=== PATIENT | female | born 2000 | race African-American/Black ===

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

== ENCOUNTER → 2023-08-16 | Emergency (ER) | payer OTHER, SELFPAY ==
--- OUTSIDE RECORDS SUMMARY | 2023-08-16 03:27 | XMS REPORT | Continuity of Care Document ---
Author Name Unknown Address [address] [facility] [address] [place] [address] [facility] thconnect Address [address] [facility] [address] [place] [address] Care Team Providers Care Acquisition Professional Name Role Phone Gabi Reynoso Primary Care Physicia n NICOLE QUINTANILLA Attending Clinician Unavaila ble GABI PALACIO Attending Clinician Unavail able Gabi Reynoso Attending Clinician + Visit, [facility] Nurse Attending Clinician Lisa Trotter MD Attending Clinician [phone] LISA CATES Attending Clinician Unavailable LISA CATES Attending Clinician Unavailable CANDICE VASQUEZ Attending Clinician Unavailable Vira Callahan MD Attending Clinician [phone] Doctor Unassigned, [place] Attending Clinician U MARCELA Asher Attending Clinician Unavailable Rogelio Hess Attending Clinician + [phone] Marcela Cruz MD Attending Clinician [phone] Nicole Quintanilla CNM Attending Clinician [phone] 1, [facility] Attending Clinician Unavailab Amanda Lopez MD Attending Clinician [phone] MAHAMED DO Attending Clinician Unavailable MAHAMED DO Attending Clinician Unavailable ALEXSANDRA POLANCO Attending Clinician Unavailable Alexsandra Polanco MD Attending Clinician [phone] REMI ROSARIO Attending Clinician Unavailab hector Johnson ELECTRIC GOLF CART REPAIRERAkanksha Jesus Attending Clinician [phone] [facility], [facility] Attending Clinician Un available Rui Gould MD Attending Clinician [phone] RUI GOULD Attending Clinician Unavailable LUZ MARIA ANGEL Attending Clinician Unavailameena Angel ELECTRIC GOL[employer] C[employer] REPAIRER, Luz Maria Mckay Attending Clinician [phone] Christian Ruiz MD Attending Clinician [phone] Chester Cates DO Attending Clinician [phone] Lab, [facility] Attending Clinician Unavailab Shira Owusu Attending Clinician [phone] Ultrasound, [facility] Attending Clinician UnavailRichard Desai MD Attending Clinician [phone] MARCELA CRUZ Admitting Clinician Unavailable Lisa Cates MD Admitting Clinician [phone] LISA CATES Admitting Clinician Unavailable Marcela Cruz MD Admitting Clinician [phone] Payers Payer Name Policy Type Policy Number Effective Date Expirati on Date Source [place] [employer] [id number] 2022 00:00:00 MEDICAID [facility] [id number] 2020 00:00:00 MEDICAID PENDING PENDING 2020 00:00:00 Problems Condition Name Condition Details Condition Category Status Onset Date Resolution Date Last Treatment Date Treating Clinician Comments Source care and examinatio n of lactating mother care and examinatio n of lactating mother Disease Active 8-09 00:00: 00 [facility] 39 weeks gestation of 39 weeks gestation of Disease Active 0 7-19 00:00: 00 [facility] History of tubal ligation History of tubal ligation Disease Active 6-01 00:00: 00 [facility] Supervisio n of high-risk Supervisio n of high-risk Disease Active 2-21 00:00: 00 [facility] Multiparit y Multiparit y Disease Active 2-21 00:00: 00 [facility] History of section History of section Disease Active 2-21 00:00: 00 [facility] Desires (vaginal after ) trial Desires (vaginal after ) trial Disease Active 2-21 00:00: 00 [facility] examinatio n or test, positive result examinatio n or test, positive result Disease Active 2-15 00:00: 00 [facility] Over weight Over weight Disease Active 3-10 00:00: 00 [facility] Other general counseling and advice for contracept kd management Other general counseling and advice for contracept kd management Disease Active 1-06 00:00: 00 [facility] History of asthma History of asthma Disease Active 8 00:00: 00 Overview: Formattin g of this note might be different from the original. Reports as a child not on meds, reports resolved [facility] Allergies, Adverse Reactions, Alerts Allergy Name Allergy Type Status Severity Reaction(s) Onset Date Inactive Date Treating Clinician Comments Source NO KNOWN ALLERGIE S Drug Class Active [facility] Social History Social Habit Start Date Stop Date Quantity Comments Source ASSERTION 2022-05-15 00:00:00 [facility] History SDOH Alcohol Frequency [facility] History SDOH Alcohol Std Drinks [facility] History SDOH Alcohol Binge [facility] Gender identity [facility] Alcohol intake 2023-01-31 00:00:00 2023-01-31 00:00:00 Current drinker of alcohol (finding) [facility] Tobacco use and exposure 2023-01-29 00:00:00 2023-01-29 00:00:00 Smokeless tobacco non-user [facility] Exposure to SARS-CoV-2 (event) 2022-11-17 00:00:00 2022-11-27 15:16:00 Not sure [facility] Tobacco Comment 2022-08-28 00:00:00 2022-08-28 00:00:00 experimented with smoking at age 14 [facility] Alcohol Comment 2021-09-20 00:00:00 2021-09-20 00:00:00 socially [facility] History of Social function 2021-06-28 00:00:00 2021-06-28 00:00:00 [facility] Education 2020-06-02 00:00:00 2020-06-02 00:00:00 21 [facility] Sex Assigned At 2000 00:00:00 2000 00:00:00 [facility] Smoking Status Start Date Stop Date Source Never smoked tobacco [facility] Medications Ordered Medication Name Filled Medication Name Start Date Stop Date Current Medication? Ordering Clinician Indication Dosage Frequency Signature (SIG) Comments Components Source vitamin w/FA tablet 02-01 00:00: 00 Yes [id number] 1{tbl} Take 1 tablet by mouth in the morning. [facility] docusate 100 mg capsule 02-01 00:00: 00 Yes [id number] 200mg Take 2 capsules by mouth once daily as needed for Constipati on. [facility] ferrous sulfate 325 mg (65 mg iron) tablet 02-01 00:00: 00 Yes [id number] 325mg Take 1 tablet by mouth in the morning. [facility] ibuprofen 600 mg tablet 02-01 00:00: 00 Yes [id number] 600mg Take 1 tablet by mouth every 6 (six) hours as needed (Pain). Take with food or milk. [facility] HYDROcodone -acetaminop hen 5-325 mg tablet 02-01 00:00: 00 Yes [id number] 1{tbl} Take 1 tablet by mouth every 6 (six) hours as needed (Pain scale above 4) for up to 10 doses. Do not exceed 3 grams of acetaminop hen in 24 hours. Indication s: acute pain [facility] vitamin w/FA tablet 02-01 00:00: 00 Yes [id number] 1{tbl} Take 1 tablet by mouth in the morning. [facility] docusate 100 mg capsule 02-01 00:00: 00 Yes [id number] 200mg Take 2 capsules by mouth once daily as needed for Constipati on. [facility] ferrous sulfate 325 mg (65 mg iron) tablet 02-01 00:00: 00 Yes [id number] 325mg Take 1 tablet by mouth in the morning. [facility] ibuprofen 600 mg tablet 02-01 00:00: 00 Yes [id number] 600mg Take 1 tablet by mouth every 6 (six) hours as needed (Pain). Take with food or milk. [facility] HYDROcodone -acetaminop hen 5-325 mg tablet 02-01 00:00: 00 Yes [id number] 1{tbl} Take 1 tablet by mouth every 6 (six) hours as needed (Pain scale above 4) for up to 10 doses. Do not exceed 3 grams of acetaminop hen in 24 hours. Indication s: acute pain [facility] vitamin w/FA tablet 02-01 00:00: 00 Yes [id number] 1{tbl} Take 1 tablet by mouth in the morning. [facility] docusate 100 mg capsule 02-01 00:00: 00 Yes [id number] 200mg Take 2 capsules by mouth once daily as needed for Constipati on. [facility] ferrous sulfate 325 mg (65 mg iron) tablet 02-01 00:00: 00 Yes [id number] 325mg Take 1 tablet by mouth in the morning. [facility] ibuprofen 600 mg tablet 02-01 00:00: 00 Yes [id number] 600mg Take 1 tablet by mouth every 6 (six) hours as needed (Pain). Take with food or milk. [facility] HYDROcodone -acetaminop hen 5-325 mg tablet 02-01 00:00: 00 Yes [id number] 1{tbl} Take 1 tablet by mouth every 6 (six) hours as needed (Pain scale above 4) for up to 10 doses. Do not exceed 3 grams of acetaminop hen in 24 hours. Indication s: acute pain [facility] lactated ringers IV infusion 1,000 mL 01-30 09:30: 00 01-30 06:30 :00 No 1000mL at 125 mL/hr, 1,000 mL, IV Infusion, ONCE, 1 dose, On Fri01/30/23 at 0430, Routine [facility] rho(D) immune globulin (RHOGAM) syringe 300 mcg 01-30 09:23: 20 Yes 300ug 300 mcg, Intramuscu lar, ONCE, For 1 dose, Conditiona l, Routine [facility] rho(D) immune globulin (RHOGAM) syringe 300 mcg 01-30 09:23: 20 Yes 300ug 300 mcg, Intramuscu lar, ONCE, For 1 dose, Conditiona l, Routine [facility] HYDROcodone -acetaminop hen (NORCO 5) 5-325 mg tablet 2 tablet 01-30 09:23: 15 Yes 2{tbl} 2 tablet, Oral, Q6HPRN, Starting on Fri01/30/23 at 0423, Until Discontinu ed, Routine, Pain (scale 7-10), Alternate with Ibuprofen [facility] HYDROcodone -acetaminop hen (NORCO 5) 5-325 mg tablet 1 tablet 01-30 09:23: 15 Yes 1{tbl} 1 tablet, Oral, Q6HPRN, Starting on Fri01/30/23 at 0423, Until Discontinu ed, Routine, Pain (scale 4-6), Alternate with Ibuprofen [facility] ibuprofen (IBU) tablet 600 mg 01-30 09:23: 15 Yes 600mg 600 mg, Oral, Q6HPRN, Starting on Fri01/30/23 at 422, Until Discontinu ed, Routine, Pain (scale 1-3) [facility] diphenhydrA MINE (BENADRYL) injection 25 mg 01-30 09:23: 15 Yes 25mg 25 mg, Slow IV Push, Q6HPRN, Starting on Fri01/30/23 at 422, Until Discontinu ed, Routine, Itching [facility] diphenhydrA MINE (BENADRYL) tablet 25 mg 01-30 09:23: 15 Yes 25mg 25 mg, Oral, Q6HPRN, Starting on Fri01/30/23 at 422, Until Discontinu ed, Routine, Sleep, Itching [facility] ondansetron (ZOFRAN (PF)) injection 4 mg 01-30 09:23: 15 Yes 4mg 4 mg, Slow IV Push, Q8HPRN, Starting on Fri01/30/23 at 422, Until Discontinu ed, Routine, Nausea and Vomiting (N/V) [facility] bisacodyL (DULCOLAX) suppository 10 mg 01-30 09:23: 15 Yes 10mg 10 mg, Rectal, QDAILYPRN, Starting on Fri01/30/23 at 422, Until Discontinu ed, Routine, Constipati on [facility] simethicone (GAS RELIEF (SIMETHICON E)) chewable tablet 160 mg 01-30 09:23: 15 Yes 160mg 160 mg, Oral, PC+HSPRN, Starting on Fri01/30/23 at 422, Until Discontinu ed, Routine, Gas [facility] docusate (COLACE) capsule 200 mg 01-30 09:23: 15 Yes 200mg 200 mg, Oral, QDAILYPRN, Starting on Fri01/30/23 at 422, Until Discontinu ed, Routine, Constipati on [facility] magnesium hydroxide (MILK OF MAGNESIA) 400 mg/5 mL suspension 30 mL 01-30 09:23: 15 Yes 30mL 30 mL, Oral, QDAILYPRN, Starting on Fri01/30/23 at 422, Until Discontinu ed, Routine, Constipati on [facility] lactated ringers IV infusion 1,000 mL 01-30 09:23: 15 Yes 1000mL at 125 mL/hr, 1,000 mL, IV Infusion, PRN, 1 dose, Starting on Fri01/30/23 at 422, Until Discontinu ed, Routine [facility] HYDROcodone -acetaminop hen (NORCO 5) 5-325 mg tablet 2 tablet 01-30 09:23: 15 Yes 2{tbl} 2 tablet, Oral, Q6HPRN, Starting on Fri01/30/23 at 422, Until Discontinu ed, Routine, Pain (scale 7-10), Alternate with Ibuprofen [facility] HYDROcodone -acetaminop hen (NORCO 5) 5-325 mg tablet 1 tablet 01-30 09:23: 15 Yes 1{tbl} 1 tablet, Oral, Q6HPRN, Starting on Fri01/30/23 at 422, Until Discontinu ed, Routine, Pain (scale 4-6), Alternate with Ibuprofen [facility] ibuprofen (IBU) tablet 600 mg 01-30 09:23: 15 Yes 600mg 600 mg, Oral, Q6HPRN, Starting on Fri01/30/23 at 422, Until Discontinu ed, Routine, Pain (scale 1-3) [facility] diphenhydrA MINE (BENADRYL) injection 25 mg 01-30 09:23: 15 Yes 25mg 25 mg, Slow IV Push, Q6HPRN, Starting on Fri01/30/23 at 422, Until Discontinu ed, Routine, Itching [facility] diphenhydrA MINE (BENADRYL) tablet 25 mg 01-30 09:23: 15 Yes 25mg 25 mg, Oral, Q6HPRN, Starting on Fri01/30/23 at 422, Until Discontinu ed, Routine, Sleep, Itching [facility] ondansetron (ZOFRAN (PF)) injection 4 mg 01-30 09:23: 15 Yes 4mg 4 mg, Slow IV Push, Q8HPRN, Starting on Fri01/30/23 at 422, Until Discontinu ed, Routine, Nausea and Vomiting (N/V) [facility] bisacodyL (DULCOLAX) suppository 10 mg 01-30 09:23: 15 Yes 10mg 10 mg, Rectal, QDAILYPRN, Starting on Fri01/30/23 at 422, Until Discontinu ed, Routine, Constipati on [facility] simethicone (GAS RELIEF (SIMETHICON E)) chewable tablet 160 mg 01-30 09:23: 15 Yes 160mg 160 mg, Oral, PC+HSPRN, Starting on Fri01/30/23 at 422, Until Discontinu ed, Routine, Gas [facility] docusate (COLACE) capsule 200 mg 01-30 09:23: 15 Yes 200mg 200 mg, Oral, QDAILYPRN, Starting on Fri01/30/23 at 422, Until Discontinu ed, Routine, Constipati on [facility] magnesium hydroxide (MILK OF MAGNESIA) 400 mg/5 mL suspension 30 mL 01-30 09:23: 15 Yes 30mL 30 mL, Oral, QDAILYPRN, Starting on Fri01/30/23 at 422, Until Discontinu ed, Routine, Constipati on [facility] lactated ringers IV infusion 1,000 mL 01-30 09:23: 15 Yes 1000mL at 125 mL/hr, 1,000 mL, IV Infusion, PRN, 1 dose, Starting on Fri01/30/23 at 422, Until Discontinu ed, Routine [facility] lactated ringers IV infusion 1,000 mL 01-30 04:30: 00 01-30 09:23 :19 No 1000mL at 125 mL/hr, 1,000 mL, IV Infusion, CONTINUOUS , Starting on Fri01/29/23 at 2330, Until Fri01/30/23 at 0423, IVAN [facility] ketorolac (TORADOL) injection 30 mg 01-30 02:41: 35 01-30 05:00 :00 No 30mg 30 mg, Slow IV Push, PRN, 1 dose, Starting on Fri01/29/23 at 2141, Until Fri01/31/23 at 2359, Routine, Pain (scale 4-6) [facility] morpHINE (4 mg/mL) injection 4 mg 01-30 01:15: 00 01-30 00:28 :00 No 4mg 4 mg, Slow IV Push, ONCE, 1 dose, On Fri01/29/23 at 2015, Routine [facility] sodium citrate-cit nancy acid (BICITRA) 500-334 mg/5 mL solution 30 mL 01-30 01:05: 42 01-30 02:03 :00 No 30mL 30 mL, Oral, PRE-PROCED URE ONCE, 1 dose, Starting on Fri01/29/23 at 2004, Until Fri01/29/23 at 2103, Routine, Surgery [facility] ceFAZolin (ANCEF) 2,000 mg in NaCl 0.9% (NS) 100 mL MINI-BAG 01-30 01:05: 05 01-30 02:33 :00 No 2000mg 2,000 mg, IV Piggyback, O.R. HOLDING ONCE, 1 dose, Starting on Fri01/29/23 at 2004, Until Fri01/29/23 at 2358, Administer over 30 Minutes, 100 mL
Reas on for Anti-Infec tive: Surgical Prophylaxi s
Surgi salma Prophylaxi s: PEDIATRIC HOSPITALIST
Duration of therapy: within 24 hours of surgery [facility] D5W-LR IV infusion 1,000 mL 01-29 14:16: 02 01-30 09:23 :18 No 1000mL at 1-125 mL/hr, IV Infusion, TITRATE, Starting on Fri01/29/23 at 0916, Until Stephani 01/30/23 at 0423, Routine [facility] D5W 0.9% NaCl (NS) IV infusion 1,000 mL 12-19 03:00: 00 Yes 1000mL at 1,000 mL/hr, 1,000 mL, IV Infusion, CONTINUOUS , Starting on Fri12/18/22 at 2200, Until Discontinu ed, Routine [facility] ondansetron (ZOFRAN (PF)) injection 4 mg 12-19 01:45: 00 12-19 01:41 :00 No 4mg 4 mg, Slow IV Push, ONCE, On Fri12/18/22 at 2044, For 1 dose
Do ses of ondansetro n 16 mg and above need to be administer ed via IV piggyback. For Dose >=24mg ECG monitoring is advisable.
[facility] NaCl 0.9% (NS) bolus infusion 1,000 mL 12-19 01:45: 00 12-19 01:27 :12 No 1000mL at 999 mL/hr, 1,000 mL, IV Infusion, ONCE, 1 dose, On Fri12/18/22 at 2044, STAT [facility] bik98-fxrw- folic acid 29 mg iron- 1 mg per tablet 09-03 00:00: 00 Yes [id number] 1{tbl} Take 1 tablet by mouth in the morning. [facility] koe09-sasd- folic acid 29 mg iron- 1 mg per tablet 09-03 00:00: 00 Yes [id number] 1{tbl} Take 1 tablet by mouth in the morning. [facility] iej08-agdd- folic acid 29 mg iron- 1 mg per tablet 09-03 00:00: 00 Yes [id number] 1{tbl} Take 1 tablet by mouth in the morning. [facility] xsy81-cgfp- folic acid 29 mg iron- 1 mg per tablet 2- 00:00: 00 Yes [id number] 1{tbl} Take 1 tablet by mouth in the morning. [facility] qtf08-ylpd- folic acid 29 mg iron- 1 mg per tablet 0 2- 00:00: 00 Yes [id number] 1{tbl} Take 1 tablet by mouth in the morning. [facility] tjj18-kaoy- folic acid 29 mg iron- 1 mg per tablet 0 2- 00:00: 00 Yes [id number] 1{tbl} Take 1 tablet by mouth in the morning. [facility] bym28-akpl- folic acid 29 mg iron- 1 mg per tablet 0 - 00:00: 00 Yes [id number] 1{tbl} Take 1 tablet by mouth in the morning. [facility] xiy76-heov- folic acid 29 mg iron- 1 mg per tablet 0 09-03 00:00: 00 Yes [id number] 1{tbl} Take 1 tablet by mouth in the morning. [facility] hmm49-afpy- folic acid 29 mg iron- 1 mg per tablet 0 09-03 00:00: 00 Yes [id number] 1{tbl} Take 1 tablet by mouth in the morning. [facility] qil39-jcsp- folic acid 29 mg iron- 1 mg per tablet 0 09-03 00:00: 00 Yes [id number] 1{tbl} Take 1 tablet by mouth in the morning. [facility] qvs12-bggl- folic acid 29 mg iron- 1 mg per tablet 2022-0 2 00:00: 00 Yes [id number] 1{tbl} Take 1 tablet by mouth in the morning. [facility] ape98-ehuo- folic acid 29 mg iron- 1 mg per tablet 2022-0 2- 00:00: 00 Yes [id number] 1{tbl} Take 1 tablet by mouth in the morning. [facility] ckr05-tsuc- folic acid 29 mg iron- 1 mg per tablet 2022-0 2- 00:00: 00 Yes [id number] 1{tbl} Take 1 tablet by mouth in the morning. [facility] isp24-ybwl- folic acid 29 mg iron- 1 mg per tablet 0 2- 00:00: 00 Yes [id number] 1{tbl} Take 1 tablet by mouth in the morning. [facility] tpz87-tqjy- folic acid 29 mg iron- 1 mg per tablet 2022-0 2- 00:00: 00 Yes [id number] 1{tbl} Take 1 tablet by mouth in the morning. [facility] rpl77-axid- folic acid 29 mg iron- 1 mg per tablet 0 2- 00:00: 00 Yes [id number] 1{tbl} Take 1 tablet by mouth in the morning. [facility] sul70-ylcm- folic acid 29 mg iron- 1 mg per tablet 0 2- 00:00: 00 Yes [id number] 1{tbl} Take 1 tablet by mouth in the morning. [facility] qxk30-bpqv- folic acid 29 mg iron- 1 mg per tablet 0 09-03 00:00: 00 Yes [id number] 1{tbl} Take 1 tablet by mouth in the morning. [facility] aww39-kwzx- folic acid 29 mg iron- 1 mg per tablet 2022-0 2- 00:00: 00 Yes [id number] 1{tbl} Take 1 tablet by mouth in the morning. [facility] ahs90-vdms- folic acid 29 mg iron- 1 mg per tablet 2022-0 2- 00:00: 00 Yes [id number] 1{tbl} Take 1 tablet by mouth in the morning. [facility] gfm15-uiub- folic acid 29 mg iron- 1 mg per tablet 2022-0 2- 00:00: 00 Yes [id number] 1{tbl} Take 1 tablet by mouth in the morning. [facility] oyn37-kedo- folic acid 29 mg iron- 1 mg per tablet 2022-0 2- 00:00: 00 Yes [id number] 1{tbl} Take 1 tablet by mouth in the morning. [facility] fym96-ibef- folic acid 29 mg iron- 1 mg per tablet 2022-0 2- 00:00: 00 Yes [id number] 1{tbl} Take 1 tablet by mouth in the morning. [facility] nrm66-assi- folic acid 29 mg iron- 1 mg per tablet 0 2- 00:00: 00 Yes [id number] 1{tbl} Take 1 tablet by mouth in the morning. [facility] nwk38-hlsm- folic acid 29 mg iron- 1 mg per tablet 0 2- 00:00: 00 Yes [id number] 1{tbl} Take 1 tablet by mouth in the morning. [facility] vgk23-gvmy- folic acid 29 mg iron- 1 mg per tablet 0 - 00:00: 00 Yes [id number] 1{tbl} Take 1 tablet by mouth in the morning. [facility] scr15-hwiq- folic acid 29 mg iron- 1 mg per tablet 09-03 00:00: 00 Yes [id number] 1{tbl} Take 1 tablet by mouth in the morning. [facility] vmd81-yknj- folic acid 29 mg iron- 1 mg per tablet 0 09-03 00:00: 00 Yes [id number] 1{tbl} Take 1 tablet by mouth in the morning. [facility] pba51-qisb- folic acid 29 mg iron- 1 mg per tablet 0 09-03 00:00: 00 Yes [id number] 1{tbl} Take 1 tablet by mouth in the morning. [facility] iuz05-peoe- folic acid 29 mg iron- 1 mg per tablet 0 09-03 00:00: 00 Yes [id number] 1{tbl} Take 1 tablet by mouth in the morning. [facility] rxe44-luha- folic acid 29 mg iron- 1 mg per tablet 0 2-21 00:00: 00 02-01 00:00 :00 No [id number] 1{tbl} Take 1 tablet by mouth in the morning. [facility] ibuprofen 800 mg tablet 2021-07 1-12 00:00: 00 Yes [id number] 800mg Take 1 tablet by mouth every 8 (eight) hours as needed for Pain (scale 4-6). [facility] ibuprofen 800 mg tablet 2021-07 00:00: 00 Yes [id number] 800mg Take 1 tablet by mouth every 8 (eight) hours as needed for Pain (scale 4-6). [facility] ibuprofen 800 mg tablet 2021-07 00:00: 00 Yes [id number] 15029 800mg Take 1 tablet by mouth every 8 (eight) hours as needed for Pain (scale 4-6). [facility] ibuprofen 800 mg tablet 2021-07 00:00: 00 Yes [id number] 800mg Take 1 tablet by mouth every 8 (eight) hours as needed for Pain (scale 4-6). [facility] ibuprofen 800 mg tablet 2021-07 00:00: 00 09-03 00:00 :00 No [id number] 800mg Take 1 tablet by mouth every 8 (eight) hours as needed for Pain (scale 4-6). [facility] ibuprofen 800 mg tablet 2021-07 00:00: 00 09-03 00:00 :00 No [id number] 800mg Take 1 tablet by mouth every 8 (eight) hours as needed for Pain (scale 4-6). [facility] ibuprofen 800 mg tablet 2021-07 00:00: 00 09-03 00:00 :00 No [id number] 800mg Take 1 tablet by mouth every 8 (eight) hours as needed for Pain (scale 4-6). [facility] ibuprofen 800 mg tablet 2021-07 00:00: 00 09-03 00:00 :00 No [id number] 800mg Take 1 tablet by mouth every 8 (eight) hours as needed for Pain (scale 4-6). [facility] ciprofloxac in-dexameth asone (CIPRODEX) 0.3-0.1 % otic drops 2021-07 00:00: 00 05-31 05:59 :00 No [id number] 4[drp] Place 4 Drops in left ear in the morning and 4 Drops in the evening. Do all this for 5 days. [facility] medroxyPROG ESTERone (DEPO-PROVE RA) injection 150 mg 2-0 3-10 15:45: 00 08-22 15:44 :00 No [id number] 150mg [facility] medroxyPROG ESTERone (DEPO-PROVE RA) injection 150 mg 2-0 3-10 15:45: 00 08-22 15:44 :00 No [id number] 150mg 150 mg, Intramuscu lar, [id number], 4 doses, First dose on Stephani 09/20/21 at 0945, Last dose on Stephani 05/30/22 at 0945, Routine [facility] medroxyPROG ESTERone (DEPO-PROVE RA) injection 150 mg 2-0 3-10 15:45: 00 08-22 15:44 :00 No [id number] 150mg [facility] medroxyPROG ESTERone (DEPO-PROVE RA) injection 150 mg 2-0 3-10 15:45: 00 08-22 15:44 :00 No [id number] 150mg [facility] Vital Signs Vital Name Observation Time Observation Value Comments S ource Systolic blood pressure 2023-02-19 14:42:00 119 mm[Hg] [facility] Diastolic blood pressure 2023-02-19 14:42:00 80 mm[Hg] [facility] Heart rate 2023-02-19 14:42:00 71 /min [facility] Body temperature 2023-02-19 14:42:00 36.5 Indira [facility] Respiratory rate 2023-02-19 14:42:00 20 /min [facility] Body height 2023-02-19 14:42:00 152.4 cm [facility] Body weight 2023-02-19 14:42:00 56.518 kg [facility] BMI 2023-02-19 14:42:00 24.33 kg/m2 [facility] Systolic blood pressure 2023-02-05 14:39:00 120 mm[Hg] [facility] Diastolic blood pressure 2023-02-05 14:39:00 84 mm[Hg] [facility] Heart rate 2023-02-05 14:39:00 81 /min Unive [facility] Body temperature 2023-02-05 14:39:00 35.56 Indira [facility] Respiratory rate 2023-02-05 14:39:00 18 /min [facility] Body height 2023-02-05 14:39:00 152.4 cm [facility] Body weight 2023-02-05 14:39:00 58.423 kg [facility] BMI 2023-02-05 14:39:00 25.15 kg/m2 [facility] Systolic blood pressure 2023-02-01 13:31:00 125 mm[Hg] [facility] Diastolic blood pressure 2023-02-01 13:31:00 81 mm[Hg] [facility] Heart rate 2023-02-01 13:31:00 94 /min Unive [facility] Body temperature 2023-02-01 13:31:00 36.72 Indira [facility] Respiratory rate 2023-02-01 13:31:00 18 /min [facility] Oxygen saturation in Arterial blood by Pulse oximetry 2023-02-01 13:31:00 99 /min [facility] Body height 2023-01-29 13:45:00 152.4 cm [facility] Body weight 2023-01-29 13:45:00 62.596 kg [facility] BMI 2023-01-29 13:45:00 26.95 kg/m2 [facility] Heart rate 2023-01-30 02:00:00 80 [facility] Oxygen saturation in Arterial blood by Pulse oximetry 2023-01-30 02:00:00 99 /min [facility] Systolic blood pressure 2023-01-30 01:30:00 118 mm[Hg] [facility] Diastolic blood pressure 2023-01-30 01:30:00 69 mm[Hg] [facility] Respiratory rate 2023-01-30 01:00:00 18 /min [facility] Body temperature 2023-01-30 00:00:00 36.78 Indira [facility] Body height 2023-01-29 13:45:00 152.4 cm [facility] Body weight 2023-01-29 13:45:00 62.596 kg [facility] BMI 2023-01-29 13:45:00 26.95 kg/m2 [facility] Systolic blood pressure 2023-01-27 20:41:00 112 mm[Hg] [facility] Diastolic blood pressure 2023-01-27 20:41:00 75 mm[Hg] [facility] Heart rate 2023-01-27 20:41:00 93 /min Unive [facility] Body temperature 2023-01-27 20:41:00 36.06 Indira [facility] Respiratory rate 2023-01-27 20:41:00 18 /min [facility] Body height 2023-01-27 20:41:00 152.4 cm [facility] Body weight 2023-01-27 20:41:00 62.188 kg [facility] BMI 2023-01-27 20:41:00 26.78 kg/m2 [facility] Systolic blood pressure 2023-01-23 16:16:00 120 mm[Hg] [facility] Diastolic blood pressure 2023-01-23 16:16:00 73 mm[Hg] [facility] Heart rate 2023-01-23 16:16:00 82 /min Unive [facility] Body temperature 2023-01-23 16:16:00 36.11 Indira [facility] Respiratory rate 2023-01-23 16:16:00 18 /min [facility] Body height 2023-01-23 16:16:00 152.4 cm [facility] Body weight 2023-01-23 16:16:00 61.916 kg [facility] BMI 2023-01-23 16:16:00 26.66 kg/m2 [facility] Systolic blood pressure 2023-01-15 21:07:00 112 mm[Hg] [facility] Diastolic blood pressure 2023-01-15 21:07:00 78 mm[Hg] [facility] Heart rate 2023-01-15 21:07:00 77 /min Un[facility] Body temperature 2023-01-15 21:07:00 35.67 Indira [facility] Respiratory rate 2023-01-15 21:07:00 18 /min [facility] Body height 2023-01-15 21:07:00 152.4 cm [facility] Body weight 2023-01-15 21:07:00 61.326 kg [facility] BMI 2023-01-15 21:07:00 26.40 kg/m2 [facility] Systolic blood pressure 2023-01-08 19:18:00 112 mm[Hg] [facility] Diastolic blood pressure 2023-01-08 19:18:00 75 mm[Hg] [facility] Heart rate 2023-01-08 19:18:00 78 /min Unive [facility] Body temperature 2023-01-08 19:18:00 35.56 Indira [facility] Respiratory rate 2023-01-08 19:18:00 18 /min [facility] Body height 2023-01-08 19:18:00 152.4 cm [facility] Body weight 2023-01-08 19:18:00 61.598 kg [facility] BMI 2023-01-08 19:18:00 26.52 kg/m2 [facility] Systolic blood pressure 2022-12-25 20:31:00 105 mm[Hg] [facility] Diastolic blood pressure 2022-12-25 20:31:00 65 mm[Hg] [facility] Heart rate 2022-12-25 20:31:00 86 /min Unive [facility] Body temperature 2022-12-25 20:31:00 36.67 Indira [facility] Respiratory rate 2022-12-25 20:31:00 18 /min [facility] Body height 2022-12-25 20:31:00 152.4 cm [facility] Body weight 2022-12-25 20:31:00 61.831 kg [facility] BMI 2022-12-25 20:31:00 26.62 kg/m2 [facility] Systolic blood pressure 2022-12-19 01:30:00 114 mm[Hg] [facility] Diastolic blood pressure 2022-12-19 01:30:00 60 mm[Hg] [facility] Heart rate 2022-12-19 01:30:00 105 /min Unive [facility] Oxygen saturation in Arterial blood by Pulse oximetry 2022-12-19 01:30:00 98 /min [facility] Body temperature 2022-12-19 00:00:00 37.17 Indira [facility] Respiratory rate 2022-12-19 00:00:00 16 /min [facility] Body height 2022-12-19 00:00:00 152.4 cm [facility] Body weight 2022-12-19 00:00:00 59.149 kg [facility] BMI 2022-12-19 00:00:00 25.47 kg/m2 [facility] Systolic blood pressure 2022-12-12 19:08:00 105 mm[Hg] [facility] Diastolic blood pressure 2022-12-12 19:08:00 70 mm[Hg] [facility] Heart rate 2022-12-12 19:08:00 81 /min [facility] 2022-12-12 19:08:00 36.33 Indira [facility] Respiratory rate 2022-12-12 19:08:00 18 /min [facility] Body height 2022-12-12 19:08:00 152.4 cm [facility] Body weight 2022-12-12 19:08:00 60.555 kg [facility] BMI 2022-12-12 19:08:00 26.07 kg/m2 [facility] Systolic blood pressure 2022-11-27 20:16:00 105 mm[Hg] [facility] Diastolic blood pressure 2022-11-27 20:16:00 62 mm[Hg] [facility] Heart rate 2022-11-27 20:16:00 88 /min Unive [facility] Body temperature 2022-11-27 20:16:00 35.94 Indira [facility] Respiratory rate 2022-11-27 20:16:00 18 /min [facility] Body height 2022-11-27 20:16:00 152.4 cm [facility] Body weight 2022-11-27 20:16:00 60.056 kg [facility] BMI 2022-11-27 20:16:00 25.86 kg/m2 [facility] Systolic blood pressure 2022-11-13 15:31:00 103 mm[Hg] [facility] Diastolic blood pressure 2022-11-13 15:31:00 64 mm[Hg] [facility] Heart rate 2022-11-13 15:31:00 79 /min Unive [facility] Body temperature 2022-11-13 15:31:00 35.83 Indira [facility] Respiratory rate 2022-11-13 15:31:00 18 /min [facility] Body height 2022-11-13 15:31:00 152.4 cm [facility] Body weight 2022-11-13 15:31:00 59.784 kg [facility] BMI 2022-11-13 15:31:00 25.74 kg/m2 [facility] Systolic blood pressure 2022-10-30 15:37:00 103 mm[Hg] [place] [facility] Diastolic blood pressure 2022-10-30 15:37:00 68 mm[Hg] [facility] Heart rate 2022-10-30 15:37:00 78 /min Unive [facility] Body temperature 2022-10-30 15:37:00 35.78 Indira [facility] Respiratory rate 2022-10-30 15:37:00 18 /min [facility] Body height 2022-10-30 15:37:00 152.4 cm [facility] Body weight 2022-10-30 15:37:00 59.104 kg [facility] BMI 2022-10-30 15:37:00 25.45 kg/m2 [facility] Systolic blood pressure 2022-10-01 15:37:00 111 mm[Hg] [place] [facility] Diastolic blood pressure 2022-10-01 15:37:00 72 mm[Hg] [facility] Heart rate 2022-10-01 15:37:00 84 /min Unive [facility] Body temperature 2022-10-01 15:37:00 36.39 Indira [facility] Respiratory rate 2022-10-01 15:37:00 18 /min [facility] Body height 2022-10-01 15:37:00 152.4 cm [facility] Body weight 2022-10-01 15:37:00 59.693 kg [facility] BMI 2022-10-01 15:37:00 25.70 kg/m2 [facility] Systolic blood pressure 2022-09-03 21:09:00 111 mm[Hg] [facility] Diastolic blood pressure 2022-09-03 21:09:00 76 mm[Hg] [facility] Heart rate 2022-09-03 21:09:00 77 /min Unive [facility] Body temperature 2022-09-03 21:09:00 35.83 Indira [facility] Respiratory rate 2022-09-03 21:09:00 18 /min [facility] Body height 2022-09-03 21:09:00 152.4 cm [facility] Body weight 2022-09-03 21:09:00 58.015 kg [facility] BMI 2022-09-03 21:09:00 24.98 kg/m2 [facility] Systolic blood pressure 2022-08-28 22:13:00 113 mm[Hg] [facility] Diastolic blood pressure 2022-08-28 22:13:00 73 mm[Hg] [facility] Heart rate 2022-08-28 22:13:00 85 /min Unive [facility] Body temperature 2022-08-28 22:13:00 36.06 Indira [facility] Respiratory rate 2022-08-28 22:13:00 18 /min [facility] Body height 2022-08-28 22:13:00 152.4 cm [facility] Body weight 2022-08-28 22:13:00 58.605 kg [facility] BMI 2022-08-28 22:13:00 25.23 kg/m2 [facility] Systolic blood pressure 2022-05-26 02:41:00 125 mm[Hg] [facility] Diastolic blood pressure 2022-05-26 02:41:00 83 mm[Hg] [facility] Heart rate 2022-05-26 02:41:00 73 /min Unive [facility] Body temperature 2022-05-26 02:41:00 36.44 Indira [facility] Respiratory rate 2022-05-26 02:41:00 18 /min [facility] Body height 2022-05-26 02:41:00 162.6 cm [facility] Body weight 2022-05-26 02:41:00 58.968 kg [facility] BMI 2022-05-26 02:41:00 22.31 kg/m2 [facility] Oxygen saturation in Arterial blood by Pulse oximetry 2022-05-26 02:41:00 99 /min [facility] Systolic blood pressure 2021-09-20 15:09:00 128 mm[Hg] [facility] Diastolic blood pressure 2021-09-20 15:09:00 77 mm[Hg] [facility] Heart rate 2021-09-20 15:09:00 84 /min Un[facility] Body temperature 2021-09-20 15:09:00 36.06 Indira [facility] Respiratory rate 2021-09-20 15:09:00 16 /min [facility] Body height 2021-09-20 15:09:00 152.4 cm [facility] Body weight 2021-09-20 15:09:00 66.134 kg [facility] BMI 2021-09-20 15:09:00 28.47 kg/m2 [facility] Procedures Procedure Date / Time Performed Performing Clinician Source CBC WITH DIFF 2023-01-30 10:01:00 Eduarda Steele [facility] CBC WITH DIFF 2023-01-30 10:01:00 Eduarda Steele [facility] VENOUS CORD GAS 2023-01-30 03:06:00 Chavez Adler [facility] VENOUS CORD GAS 2023-01-30 03:06:00 Chavez Adler [facility] SECTION 2023-01-30 01:55:00 Vira Callahan [facility] TUBAL LIGATION 2023-01-30 01:55:00 Vira Callahan [facility] SECTION 2023-01-30 01:55:00 Vira Callahan [facility] TUBAL LIGATION 2023-01-30 01:55:00 Vira Callahan [facility] HEPATITIS B SURFACE ANTIGEN 2023-01-29 14:39:00 Chavez Adler [facility] HB ABO GROUPING 2023-01-29 14:39:00 Chavez Adler [facility] RHO (D) IMMUNE GLOBULIN 2023-01-29 14:39:00 Blanca Steele nddanielle [facility] SYPHILIS IGG/IGM 2023-01-29 14:39:00 Chavez Adler [facility] HEPATITIS B SURFACE ANTIGEN 2023-01-29 14:39:00 Chavez Adler [facility] HB ABO GROUPING 2023-01-29 14:39:00 Chavez Adler [facility] RHO (D) IMMUNE GLOBULIN 2023-01-29 14:39:00 Blanca Steele nddanielle [facility] SYPHILIS IGG/IGM 2023-01-29 14:39:00 Chavez Adler [facility] POCT URINALYSIS 2023-01-27 20:43:00 Gabi Palacio [facility] POCT URINALYSIS 2023-01-23 16:17:00 Gabi Palacio [facility] DME/SUPPLY JUSTIFICATION 2023-01-17 05:01:00 Mervin rey Unassigned, [place] [facility] POCT URINALYSIS 2023-01-15 21:09:00 Gabi Palacio [facility] DME/SUPPLY JUSTIFICATION 2023 05:01:00 Mervin rey Unassigned, [place] [facility] POCT URINALYSIS 2023-01-08 19:24:00 Gabi Palacio [facility] POCT URINALYSIS 2022-12-25 20:32:00 Gabi Palacio [facility] BASIC METABOLIC PANEL (NA, K, CL, CO2, GLUCOSE, BUN, CREATININE, CA) 2022-12-19 02:22:00 Adum, Marcela Gtz [facility] CBC WITH DIFF 2022-12-19 01:28:00 Adum, [facility] ASSIGNMENT OF BENEFITS 2022-12-18 23:31:13 Hemalatha r Unassigned, [place] [facility] NOTICE OF PRIVACY PRACTICES 2022-12-18 23:26:10 Doctor Unassigned, [place] [facility] CONSENT/REFUSAL FOR DIAGNOSIS AND TREATMENT 2022-12-18 23:25:48 Doctor Unassigned, [place] [facility] POCT URINALYSIS W/O SPECIFIC GRAVITY 2022-12-12 00:00:00 Nicole Quintanilla [facility] POCT URINALYSIS 2022-11-27 20:18:00 Gabi Palacio [facility] DME/SUPPLY JUSTIFICATION 2022-11-18 05:01:00 Mervin rey Unassigned, [place] [facility] TDAP VACCINE, >11 YRS, IM 2022-11-13 16:09:22 Gabi Palacio [facility] POCT URINALYSIS 2022-11-13 15:32:00 Gabi Palacio [facility] GLUCOSE 1 HOUR POST PRANDIAL 2022-10-30 16:55:00 Gabi Palacio [facility] CBC WITH DIFF 2022-10-30 16:55:00 Gabi Palacio [facility] POCT URINALYSIS 2022-10-30 15:39:00 Gabi Palacio [facility] STERILIZATION CONSENT FORM 2022-10-30 05:01:00 Doctor Unassigned, [place] [facility] DME/SUPPLY JUSTIFICATION 2022-10-18 05:01:00 Doc tor Unassigned, [place] [facility] POCT URINALYSIS 2022-10-01 15:39:00 Gabi Palacio [facility] PATIENT FINANCIAL POLICY 2022-09-17 18:42:14 Doctor Unassigned, [place] [facility] POCT TEST 2022-09-03 20:57:00 Mark Palacio [facility] POCT URINALYSIS W/O SPECIFIC GRAVITY 2022-09-03 20:57:00 Gabi Palacio [facility] CONSENT/REFUSAL FOR DIAGNOSIS AND TREATMENT 2022-08-28 21:51:43 Doctor Unassigned, [place] [facility] NOTICE OF PRIVACY PRACTICES 2022-05-26 02:34:04 Doctor Unassigned, [place] [facility] CONSENT/REFUSAL FOR DIAGNOSIS AND TREATMENT 2022-05-26 02:33:01 Doctor Unassigned, [place] [facility] Encounters Start Date/Time End Date/Time Encounter Type Admission Type Attending Clinicians Care Facility Care Department Encounter ID Source 2022-12-19 00:06:[address] [facility] MARILUZ [id number] [facility] 2021-05-12 07:01:[address] [facility] [id number] [facility] 2023-02-19 10:00:00 2023-02-19 10:16:55 Outpatient R GABI PALACIO [facility] [id number] [facility] 2023-02-19 10:00:00 2023-02-19 10:16:55 Routine Visit Gabi Palacio [facility] 1.0.114 350.1.13.10 4.2.7.2.686 [id number] [facility] 2023-02-05 09:30:00 2023-02-05 10:00:02 Outpatient R GABI PALACIO [facility] [id number] [facility] 2023-02-05 09:30:00 2023-02-05 10:00:02 Nurse Visit Visit, [facility] Nurse Gabi Palacio [facility] 1.0.114 350.1.13.10 4.2.7.2.686 [id number] [facility] 2023-01-29 08:36:00 2023-02-01 13:02:00 Hospital Encounter Lisa Cates [facility] 1..114 350.1.13.10 4.2.7.2.686 [id number] [facility] 2023-01-29 08:36:00 2023-02-01 13:02:00 Inpatient P LISA CATES [facility] [id number] [facility] 2023-01-29 20:00:00 2023-01-29 22:23:00 Surgery Vira Callahan [facility] 1..114 350.1.13.10 4.2.7.2.686 [id number] [facility] 2023-01-27 15:30:00 2023-01-27 15:45:00 Routine Visit Gabi Palacio [facility] & CHILD [facility] 1..114 350.1.13.10 4.2.7.2.686 [id number] [facility] 2023-01-27 15:30:00 2023-01-27 15:30:00 Outpatient R GABI PALACIO [facility] [id number] [facility] 2023-01-23 11:00:00 2023-01-23 11:31:45 Outpatient R GABI PALACIO [facility] [id number] [facility] 2023-01-23 11:00:00 2023-01-23 11:31:45 Routine Visit Gabi Palacio [facility] & [facility]ILD [facility] 1.2.840.114 350.1.13.10 4.2.7.2.686 [id number] [facility] 2023-01-17 00:00:00 2023-01-17 00:00:00 Orders Only Doctor Unassigned, [place] [facility] 1.2840.114 350.1.13.10 4.2.7.2.686 [id number] [facility] 2023-01-15 16:00:00 2023-01-15 16:24:45 Outpatient R GABI PALACIO [facility] [id number] [facility] 2023-01-15 16:00:00 2023-01-15 16:24:45 Routine Visit Gabi Palacio [facility] & [facility] 1.2840.114 350.1.13.10 4.2.7.2.686 [id number] [facility] 2023 00:00:00 2023 00:00:00 Orders Only Doctor Unassigned, [place] [facility] 1.0.114 350.1.13.10 4.2.7.2.686 [id number] [facility] 2023-01-08 14:15:00 2023-01-08 14:40:51 Outpatient R GABI PALACIO [facility] [id number] [facility] 2023-01-08 14:15:00 2023-01-08 14:40:51 Routine Visit Gabi Palacio [facility] MATERNAL & CHILD [facility] 1.0.114 350.1.13.10 4.2.7.2.686 [id number] [facility] 2022-12-25 15:30:00 2022-12-25 15:38:04 Outpatient R GABI PALACIO [facility] [id number] [facility] 2022-12-25 15:30:00 2022-12-25 15:38:04 Routine Visit Gabi Palacio [facility] & [facility]ILD [facility] 1.0.114 350.1.13.10 4.2.7.2.686 [id number] [facility] 2022-12-18 18:35:00 2022-12-18 23:25:00 Outpatient X MARCELA CRUZ [facility] [id number] [facility] 2022-12-18 18:35:00 2022-12-18 23:25:00 Emergency Bluebell, Marcela Urias [facility] 1..114 350.1.13.10 4.2.7.2.686 [id number] [facility] 2022-12-18 00:00:00 2022-12-18 00:00:[address] [facility] & CHILD [facility] 1..114 350.1.13.10 4.2.7.2.686 [id number] [facility] 2022-12-18 00:00:00 2022-12-18 00:00:00 Orders Only Doctor Unassigned, [place] [facility] 1.0.114 350.1.13.10 4.2.7.2.686 [id number] [facility] 2022-12-17 15:45:00 2022-12-17 15:45:00 Outpatient R GABI PALACIO [facility] [id number] [facility] 2022-12-12 14:00:00 2022-12-12 14:18:14 Outpatient R NICOLE QUNITANILLA [facility] [id number] [facility] 2022-12-12 14:00:00 2022-12-12 14:18:14 Routine Visit Nicole Quintanilla [facility] MATERNAL & [facility] 1.2840.114 350.1.13.10 4.2.7.2.686 [id number] [facility] 2022-12-11 15:30:00 2022-12-11 15:30:00 Outpatient R GABI PALACIO [facility] [id number] [facility] 2022-11-27 15:00:00 2022-11-27 15:44:33 Outpatient R GABI PALACIO [facility] [id number] [facility] 2022-11-27 15:00:00 2022-11-27 15:44:33 Routine Visit Gabi Palacio [facility] MATERNAL & CHILD [facility] 1.2840.114 350.1.13.10 4.2.7.2.686 [id number] [facility] 2022-11-18 00:00:00 2022-11-18 00:00:00 Orders Only Doctor Unassigned, [place] [facility] 1.840.114 350.1.13.10 4.2.7.2.686 [id number] [facility] 2022-11-13 10:30:00 2022-11-13 11:14:12 Outpatient R GABI PALACIO [facility] [id number] [facility] 2022-11-13 10:30:00 2022-11-13 11:14:12 Routine Visit Gabi Palacio [facility]ITALIST [facility] & CHILD [facility] 1.2.840.114 350.1.13.10 4.2.7.2.686 [id number] [facility] 2022-10-30 10:30:00 2022-10-30 11:19:15 Outpatient R GABI PALACIO [facility] [id number] [facility] 2022-10-30 10:30:00 2022-10-30 11:19:15 Routine Visit Gabi Palacio [facility] & CHILD [facility] 1.2.840.114 350.1.13.10 4.2.7.2.686 [id number] [facility] 2022-10-30 00:00:00 2022-10-30 00:00:00 Orders Only Doctor Unassigned, [place] [facility] 1.2.840.114 350.1.13.10 4.2.7.2.686 [id number] [id number] [facility] 2022-10-18 00:00:00 2022-10-18 00:00:00 Orders Only Doctor Unassigned, [place] [facility] 1.2.840.114 350.1.13.10 4.2.7.2.686 [id number] [facility] 2022-10-01 10:45:00 2022-10-01 11:04:04 Outpatient R GABI PALACIO [facility] [id number] [facility] 2022-10-01 10:45:00 2022-10-01 11:04:04 Routine Visit Gabi Palacio [facility]AT[facility] HOSPITALIST [facility] & CHILD [facility] 1.2.840.114 350.1.13.10 4.2.7.2.686 [id number] [facility] 2022-09-24 00:00:00 2022-09-24 00:00:[address] [facility]AT[facility] MATERNAL & CHILD [facility] 1.2.840.114 350.1.13.10 4.2.7.2.686 [id number] [facility] 2022-09-17 13:00:00 2022-09-17 13:50:01 Bit Tripoler Visit 1, [facility] Room Amanda Bales [facility] MATERNAL & CHILD [facility] 1.2.840.114 350.1.13.10 4.2.7.2.686 [id number] [facility] 2022-09-17 13:45:00 2022-09-17 13:45:00 Outpatient R MAHAMED DO JORDYN [facility] [id number] [facility] 2022-09-17 00:00:00 2022-09-17 00:00:00 Orders Only Doctor Unassigned, [place] [facility] 1..840.114 350.1.13.10 4.2.7.2.686 [id number] [facility] 2022-09-03 15:00:00 2022-09-03 16:14:01 Outpatient R GABI PALACIO [facility] [id number] [facility] 2022-09-03 15:00:00 2022-09-03 16:14:01 Initial Visit Gabi Palacio [facility] MATERNAL & CHILD [facility] 1..840.114 350.1.13.10 4.2.7.2.686 [id number] [facility] 2022-08-28 15:45:00 2022-08-28 16:22:32 Outpatient R GABI PALACIO [facility] [id number] [facility] 2022-08-28 15:45:00 2022-08-28 16:22:32 Office Visit Gabi Palacio [facility] MATERNAL & [facility]ILD [facility] 1.2.840.114 350.1.13.10 4.2.7.2.686 [id number] [facility] 2022-08-28 00:00:00 2022-08-28 00:00:00 Orders Only Doctor Unassigned, [place] [facility] 1.2.840.114 350.1.13.10 4.2.7.2.686 [id number] [facility] 2022-07-18 08:15:00 2022-07-18 08:15:00 Outpatient R GABI PALACIO [facility] [id number] [facility] 2022-05-25 20:46:00 2022-05-25 21:11:00 Emergency X ALEXSANDRA POLANCO [facility] ERT [id number] [facility] 2022-05-25 20:46:00 2022-05-25 21:11:00 Emergency MelaniagianyashAlexsandra S [facility] 1.2840.114 350.1.13.10 4.2.7.2.686 [id number] [facility] 2022-05-25 00:00:00 2022-05-25 00:00:00 Orders Only Doctor Unassigned, [place] [facility] 1.2840.114 350.1.13.10 4.2.7.2.686 [id number] [id number] [facility] 2021-12-17 09:15:00 2021-12-17 09:15:00 Outpatient R GABI PALACIO [facility] [id number] [facility] 2021-12-13 10:30:00 2021-12-13 10:30:00 Outpatient R [facility] [id number] [facility] 2021-12-13 10:30:00 2021-12-13 10:30:00 Outpatient R REMI ROSARIO [facility] [id number] [facility] 2021-09-20 09:00:00 2021-09-20 10:04:20 Office Visit Gabi Palacio [facility]AT[facility] MATERNAL & [facility] 1..840.114 350.1.13.10 4.2.7.2.686 [id number] [facility] 2021-09-20 09:00:00 2021-09-20 10:04:20 Outpatient R GABI PALACIO [facility] [id number] [facility] 2021-09-20 09:00:00 2021-09-20 09:00:00 Outpatient R GABI PALACIO [facility] [id number] [facility] 2021-09-20 09:00:00 2021-09-20 09:00:00 Outpatient R GABI PALACIO [facility] [id number] [facility] 2021-07-27 00:00:00 2021-07-27 00:00:00 Case Management Akanksha Johnson [facility] 1..840.114 350.1.13.10 4.2.7.2.686 [id number] [facility] 2021-07-17 10:00:00 2021-07-17 10:23:24 Office Visit Res-Colpo/L eep, [facility] Rui Gould [facility] 1..840.114 350.1.13.10 4.2.7.2.686 [id number] [facility] 2021-07-17 10:00:00 2021-07-17 10:23:24 Outpatient RUI PORTER [facility] [id number] [facility] 2021-07-17 10:00:00 2021-07-17 10:23:24 Outpatient RUI PORTER [facility] [id number] [facility] 2021-07-17 10:00:00 2021-07-17 10:00:00 Outpatient R LUIS FERNANDO RUI [facility] [id number] [facility] 2021-06-28 09:30:00 2021-06-28 10:06:32 Outpatient LUZ MARIA GRACE [facility] [id number] [facility] 2021-06-28 09:30:00 2021-06-28 10:06:32 Nurse Visit Visit, [facility] Luz Maria Carrillo [facility] MATERNAL & CHILD [facility] 1..114 350.1.13.10 4.2.7.2.686 [id number] [facility] 2021-06-28 00:00:00 2021-06-28 00:00:00 Orders Only Doctor Unassigned, [place] [facility] 1.114 350.1.13.10 4.2.7.2.686 [id number] [facility] 2021-04-05 10:34:58 2021-04-05 10:46:16 [facility] PEDIATR[facility] HOSPITALIST [facility] & CHILD [facility] 1..114 350.1.13.10 4.2.7.2.686 [id number] [facility] 2021-04-05 10:30:00 2021-04-05 10:30:00 Outpatient R [facility] [id number] [facility] 2021-03-28 10:30:00 2021-03-28 10:30:00 Outpatient R [facility] [id number] [facility] 2021-02-13 00:00:00 2021-02-13 00:00:00 Case Management Akanksha Johnson [facility] 1.114 350.1.13.10 4.2.7.2.686 [id number] [facility] 2021-02-01 08:20:03 2021-02-01 11:17:36 Office Visit Res-Colpo/L fionap, [facility] Ruiz [facility] 1.114 350.1.13.10 4.2.7.2.686 [id number] [facility] 2021-02-01 08:00:00 2021-02-01 08:00:00 Outpatient R [facility] [id number] [facility] 2021-02-01 00:00:00 2021-02-01 00:00:00 Orders Only Doctor Unassigned, [place] [facility] 1..114 350.1.13.10 4.2.7.2.686 [id number] [facility] 2021-01-03 10:30:07 2021-01-03 10:56:34 [facility]AT[facility] HOSPITALIST [facility] & CHILD [facility] 1.84.114 350.1.13.10 4.2.7.2.686 [id number] [facility] 2021-01-03 10:30:00 2021-01-03 10:30:00 Outpatient R [facility] [id number] [facility] 2020-11-17 13:45:00 2020-11-17 13:45:00 Outpatient R LUZ MARIA ANGEL [facility] [id number] [facility] 2020-10-11 09:43:08 2020-10-11 10:05:54 [facility]PITALIST [facility] & CHILD [facility] 1.84.114 350.1.13.10 4.2.7.2.686 [id number] [facility] 2020-10-11 09:30:00 2020-10-11 09:30:00 Outpatient R GABI PALACIO [facility] [id number] [facility] 2020-10-03 00:00:00 2020-10-03 00:00:00 Patient Outreach [address]ster [facility] 1..114 350.1.13.10 4.2.7.2.686 [id number] [facility] 2020-09-19 10:00:00 2020-09-19 10:00:00 Outpatient R [facility] [id number] [facility] 2020-09-06 16:04:25 2020-09-06 16:24:25 Laboratory Only Lab, Adc Fam Shira Caputo [facility] [address] .84.114 350.1.13.10 4.2.7.2.686 [id number] [facility] 2020-09-06 16:00:00 2020-09-06 16:00:00 Outpatient R [facility] [id number] [facility] 2020-07-26 00:00:00 2020-07-26 00:00:[address] [facility]AT[facility] MATERNAL & CHILD [facility] 1.84.114 350.1.13.10 4.2.7.2.686 [id number] [facility] 2020-07-19 10:44:08 2020-07-19 11:35:57 Office Visit Gabi Palacio [facility]AT[facility] HOSPITALIST [facility]ILD [facility] ..114 350.1.13.10 4.2.7.2.686 [id number] [facility] 2020-07-19 10:30:00 2020-07-19 10:30:00 Outpatient R GABI PALACIO [facility] [id number] [facility] 2020-06-26 10:43:58 2020-06-26 11:13:51 Routine Visit Gabi Palacio [facility]EDIATRIC HOSPITALIST [facility] 1.2.840.114 350.1.13.10 4.2.7.2.686 [id number] [facility] 2020-06-26 10:30:00 2020-06-26 10:30:00 Outpatient R GABI PALACIO [facility] [id number] [facility] 2020-06-07 16:05:04 2020-06-07 16:17:11 Nurse Visit Visit, [facility] Nurse Gabi Palacio [facility] PEDIATRIC HOSPITALIST [facility]ILD [facility] 1.2.840.114 350.1.13.10 4.2.7.2.686 [id number] [facility] 2020-06-07 16:00:00 2020-06-07 16:00:00 Outpatient R GABI PALACIO [facility] [id number] [facility] 2020-06-05 00:00:00 2020-06-05 00:00:00 Encounter 1.2.840.1 13908.1.1 3.104.2.7 [id number] 1.2.840.114 350.1.13.10 4.2.7.2.696 [id number] [facility] 2020-05-26 08:45:44 2020-05-26 09:21:50 Routine Visit Gabi Palacio [facility] PEDIATRIC HOSPITALIST [facility]ILD [facility] 1.2.840.114 350.1.13.10 4.2.7.2.686 [id number] [facility] 2020-05-26 08:45:00 2020-05-26 08:45:00 Outpatient R GABI PALACIO [facility] [id number] [facility] 2020-05-19 10:52:34 2020-05-19 11:19:21 Routine Visit Luz Maria Angel [facility]AT[facility] MATERNAL & CHILD [facility] 1..840.114 350.1.13.10 4.2.7.2.686 [id number] [facility] 2020-05-19 10:45:00 2020-05-19 10:45:00 Outpatient R LUZ MARIA ANGEL [facility] [id number] [facility] 2020-05-12 10:44:57 2020-05-12 11:20:21 Routine Visit Gabi Palacio [facility]AT[facility] MATERNAL & CHILD [facility] 1..840.114 350.1.13.10 4.2.7.2.686 [id number] [facility] 2020-05-12 11:00:00 2020-05-12 11:00:00 Outpatient R GABI PALACIO [facility] [id number] [facility] 2020-05-05 15:27:02 2020-05-05 15:53:00 Routine Visit Gabi Palacio [facility]AT[facility] MATERNAL & CHILD [facility] 1..840.114 350.1.13.10 4.2.7.2.686 [id number] [facility] 2020-05-05 15:30:00 2020-05-05 15:30:00 Outpatient R GABI PALACIO [facility] [id number] [facility] 2020-04-26 13:19:54 2020-04-26 14:03:53 Bit Tripoler Visit Ultrasound, Richard Fall [facility]AT[facility] MATERNAL & CHILD [facility] 1..840.114 350.1.13.10 4.2.7.2.686 [id number] [facility] 2020-04-26 13:00:00 2020-04-26 13:00:00 Outpatient P [facility] [id number] [facility] 2020-04-26 00:00:00 2020-04-26 00:00:[address] [facility]AT[facility] MATERNAL & CHILD [facility] 1.2.840.114 350.1.13.10 4.2.7.2.686 [id number] [facility] 2020-04-21 12:49:26 2020-04-21 13:44:01 Routine Visit Gabi Palacio [facility]ED[facility]ATRIC HOSPITALIST [facility]ILD [facility] 1.2.840.114 350.1.13.10 4.2.7.2.686 [id number] [facility] 2020-04-21 12:45:00 2020-04-21 12:45:00 Outpatient R GABI PALACIO [facility] [id number] [facility] 2020-04-10 00:00:00 2020-04-10 00:00:[address] [facility] MATERNAL & CHILD [facility] 1.2.840.114 350.1.13.10 4.2.7.2.686 [id number] [facility] 2020-04-07 14:17:56 2020-04-07 15:27:43 Initial Visit Gabi Palacio [facility] & CHILD [facility] 1.2.840.114 350.1.13.10 4.2.7.2.686 [id number] [facility] 2020-04-07 13:30:00 2020-04-07 13:30:00 Outpatient R GABI PALACIO [facility] [id number] [facility] 2020-04-07 13:00:00 2020-04-07 13:00:00 Outpatient R GABI PALACIO [facility] [id number] [facility] 2020-04-07 00:00:00 2020-04-07 00:00:00 Orders Only Doctor Unassigned, [place] [facility] 1.2.840.114 350.1.13.10 4.2.7.2.686 [id number] [facility] Results Test Description Test Time Test Comments Results Result Co mments Source [facility] - SYPHILIS [id number] 16:20:46* Test Item Value Reference Range Interpretation Comme nts Syphilis IgG/IgM (test code = 96682-3) Non-reactive Non-reactive DANIELLE (test code = DANIELLE) Non-reactive - No serologic evidence of T. pallidum infection. Cannot exclude incubating or early syphilis. Submit a second specimen in 2-4 weeks if syphilis is clinically suspected. Equivocal - Further testing to follow. Reactive - Further testing to follow. Lab Interpretation (test code = 17446-3) Normal [facility] Hospital[facility] (D) IMMUNE [id number] 09:24:15* Test Item Value Reference Range Interpretation Comme nts RHIG CANDIDATE? (test code = 5188) No- see comment Patient is not a candidate for RhIg- Patient is Rh Positive.Performed at [facility] Laboratory Services - [facility] Blood [address] Free: [phone] No. [id number] [facility] (D) IMMUNE [id number] 09:24:15* Test Item Value Reference Range Interpretation Comme nts RHIG CANDIDATE? (test code = 5188) No- see comment Patient is not a candidate for RhIg- Patient is Rh Positive.Performed at [facility] Laboratory Services - [facility] Blood [address] [place], [place] [address]Toll Free: [phone] No. [id number] [facility] HospitalArterial Cord [id number] 03:20:51* Test Item Value Reference Range Interpretation Comme nts BASE EXCESS, CORD (test code = 2531528299) -4.3 mEq/L AC PH, CORD (BEAKER) (test code = 6127170255) 7.20 7.18-7.38 PC02, CORD (test code = 2072118899) 66 See_Comment [Automated messa ge] The system which generated this result transmitted reference range: 32 - 66 mmHg. The reference range was not used to interpret this result as normal/abnormal. PO2, CORD (test code = 9994321701) See_Comment L [Automated messa ge] The system which generated this result transmitted reference range: 10 - 30 mmHg. The reference range was not used to interpret this result as normal/abnormal. BICARBONATE, CORD (test code = 3696431485) 25 See_Comment [Automated me ssage] The system which generated this result transmitted reference range: 17 - 27 mEq/L. The reference range was not used to interpret this result as normal/abnormal. Lab Interpretation (test code = 98511-9) Abnormal [facility] HospitalAr[facility] Cord [id number] 03:20:51* Test Item Value Reference Range Interpretation Comme nts BASE EXCESS, CORD (test code = 9091599827) -4.3 mEq/L AC PH, CORD (BEAKER) (test code = 1383128364) 7.20 7.18-7.38 PC02, CORD (test code = 6835629743) 66 See_Comment [Automated messa ge] The system which generated this result transmitted reference range: 32 - 66 mmHg. The reference range was not used to interpret this result as normal/abnormal. PO2, CORD (test code = 5400289555) See_Comment L [Automated messa ge] The system which generated this result transmitted reference range: 10 - 30 mmHg. The reference range was not used to interpret this result as normal/abnormal. BICARBONATE, CORD (test code = 7609065591) 25 See_Comment [Automated me ssage] The system which generated this result transmitted reference range: 17 - 27 mEq/L. The reference range was not used to interpret this result as normal/abnormal. Lab Interpretation (test code = 87908-8) Abnormal [facility] HospitalVenous Cord [id number] 03:18:05* Test Item Value Reference Range Interpretation Comme nts VENOUS BASE EXCESS, CORD (test code = 5579689824) -3.0 mEq/L VENOUS PH, CORD (test code = 2153379765) 7.27 7.25-7.45 VENOUS PC02, CORD (test code = 0397347727) 55 See_Comment H [Automated me ssage] The system which generated this result transmitted reference range: 27 - 49 mmHg. The reference range was not used to interpret this result as normal/abnormal. VENOUS PO2, CORD (test code = 4106667658) 17 See_Comment [Automated me ssage] The system which generated this result transmitted reference range: 17 - 41 mmHg. The reference range was not used to interpret this result as normal/abnormal. VENOUS BICARBONATE, CORD (test code = 7237454748) 25 See_Comment [Automa pat message] The system which generated this result transmitted reference range: 12 - 29 mEq/L. The reference range was not used to interpret this result as normal/abnormal. Lab Interpretation (test code = 75706-0) Abnormal [facility] HospitalVenous Cord [id number] 03:18:05* Test Item Value Reference Range Interpretation Comme nts VENOUS BASE EXCESS, CORD (test code = 2453347475) -3.0 mEq/L VENOUS PH, CORD (test code = 1822276486) 7.27 7.25-7.45 VENOUS PC02, CORD (test code = 0229111660) 55 See_Comment H [Automated me ssage] The system which generated this result transmitted reference range: 27 - 49 mmHg. The reference range was not used to interpret this result as normal/abnormal. VENOUS PO2, CORD (test code = 7199204524) 17 See_Comment [Automated me ssage] The system which generated this result transmitted reference range: 17 - 41 mmHg. The reference range was not used to interpret this result as normal/abnormal. VENOUS BICARBONATE, CORD (test code = 1283312871) 25 See_Comment [Automa pat message] The system which generated this result transmitted reference range: 12 - 29 mEq/L. The reference range was not used to interpret this result as normal/abnormal. Lab Interpretation (test code = 58064-2) Abnormal [facility] HospitalHepatitis B Surface [id number] 16:13:24 * Test Item Value Reference Range Interpretation Comme nts HBsAg Semi-Quantitative (merissa t code = 5195-3) 0.08 Negative [facility] HospitalHepatitis B Surface [id number] 16:13:24 * Test Item Value Reference Range Interpretation Comme nts HBsAg Semi-Quantitative (merissa t code = 5195-3) 0.08 Negative [facility] HospitalType and Screen - ONCE [id number] 14:46:00 * Test Item Value Reference Range Interpretation Comme nts ABO & RH (test code = 20) O POSITIVE IAT (test code = 1185) Negative [facility] HospitalType and Screen - ONCE [id number] 14:46:00 * Test Item Value Reference Range Interpretation Comme nts ABO & RH (test code = 20) O POSITIVE IAT (test code = 1185) Negative [facility] HospitalPOCT URINALYSIS W SPECIFIC [id number] 20:44:00* Test Item Value Reference Range Interpretation Comme nts POCT U SP GRAV (test code = 3255) . 1.005-1.025 POCT PH U (test code = 3254) . 5-8 POCT U LEUK EST (test code = 3263) . Negative - N egative POCT U NIT (test code = 3262) . Negative - Negati ve POCT U PROT (test code = 3259) trace Negative - Negat kd POCT U GLU (test code = 3256) neg Negative - Negati ve POCT U KETONE (test code = 3258) . Negative - Neg ative POCT U UROBILI (test code = 3260) . 0.2-1 POCT U BILI (test code = 3261) . Negative - Negat kd POCT U BLD (test code = 3257) . Negative - Negati ve POCT U COLOR (test code = 3266) . POCT U APPEAR (test code = 3267) . [facility] HospitalPOKS URINALYSIS W SPECIFIC [id number] 16:17:00* Test Item Value Reference Range Interpretation Comme nts POCT U SP GRAV (test code = 3255) . 1.005-1.025 POCT PH U (test code = 3254) . 5-8 POCT U LEUK EST (test code = 3263) . Negative - N egative POCT U NIT (test code = 3262) . Negative - Negati ve POCT U PROT (test code = 3259) trace Negative - Negat kd POCT U GLU (test code = 3256) neg Negative - Negati ve POCT U KETONE (test code = 3258) . Negative - Neg ative POCT U UROBILI (test code = 3260) . 0.2-1 POCT U BILI (test code = 3261) . Negative - Negat kd POCT U BLD (test code = 3257) . Negative - Negati ve POCT U COLOR (test code = 3266) . POCT U APPEAR (test code = 3267) . [facility] URINALYSIS W SPECIFIC [id number] 21:10:00* Test Item Value Reference Range Interpretation Comme nts POCT U SP GRAV (test code = 3255) . 1.005-1.025 POCT PH U (test code = 3254) . 5-8 POCT U LEUK EST (test code = 3263) . Negative - N egative POCT U NIT (test code = 3262) . Negative - Negati ve POCT U PROT (test code = 3259) trace Negative - Negat kd POCT U GLU (test code = 3256) neg Negative - Negati ve POCT U KETONE (test code = 3258) . Negative - Neg ative POCT U UROBILI (test code = 3260) . 0.2-1 POCT U BILI (test code = 3261) . Negative - Negat kd POCT U BLD (test code = 3257) . Negative - Negati ve POCT U COLOR (test code = 3266) . POCT U APPEAR (test code = 3267) . [facility] URINALYSIS W SPECIFIC [id number] 19:25:00* Test Item Value Reference Range Interpretation Comme nts POCT U SP GRAV (test code = 3255) . 1.005-1.025 POCT PH U (test code = 3254) . 5-8 POCT U LEUK EST (test code = 3263) . Negative - N egative POCT U NIT (test code = 3262) . Negative - Negati ve POCT U PROT (test code = 3259) TRACE Negative - Negat kd POCT U GLU (test code = 3256) NEG Negative - Negati ve POCT U KETONE (test code = 3258) . Negative - Neg ative POCT U UROBILI (test code = 3260) . 0.2-1 POCT U BILI (test code = 3261) . Negative - Negat kd POCT U BLD (test code = 3257) . Negative - Negati ve POCT U COLOR (test code = 3266) . POCT U APPEAR (test code = 3267) . [facility] URINALYSIS W SPECIFIC [id number] 20:32:00* Test Item Value Reference Range Interpretation Comme nts POCT U SP GRAV (test code = 3255) . 1.005-1.025 POCT PH U (test code = 3254) . 5-8 POCT U LEUK EST (test code = 3263) . Negative - N egative POCT U NIT (test code = 3262) . Negative - Negati ve POCT U PROT (test code = 3259) Trace Negative - Negat kd POCT U GLU (test code = 3256) Neg Negative - Negati ve POCT U KETONE (test code = 3258) . Negative - Neg ative POCT U UROBILI (test code = 3260) . 0.2-1 POCT U BILI (test code = 3261) . Negative - Negat kd POCT U BLD (test code = 3257) . Negative - Negati ve POCT U COLOR (test code = 3266) . POCT U APPEAR (test code = 3267) [facility] URINALYSIS W SPECIFIC [id number] 20:32:00* Test Item Value Reference Range Interpretation Comme nts POCT U SP GRAV (test code = 3255) . 1.005-1.025 POCT PH U (test code = 3254) . 5-8 POCT U LEUK EST (test code = 3263) . Negative - N egative POCT U NIT (test code = 3262) . Negative - Negati ve POCT U PROT (test code = 3259) Trace Negative - Negat kd POCT U GLU (test code = 3256) Neg Negative - Negati ve POCT U KETONE (test code = 3258) . Negative - Neg ative POCT U UROBILI (test code = 3260) . 0.2-1 POCT U BILI (test code = 3261) . Negative - Negat kd POCT U BLD (test code = 3257) . Negative - Negati ve POCT U COLOR (test code = 3266) . POCT U APPEAR (test code = 3267) [facility] [id number] 20:32:00* Test Item Value Reference Range Interpretation Comme nts POCT U SP GRAV (test code = 3255) . 1.005-1.025 POCT PH U (test code = 3254) . 5-8 POCT U LEUK EST (test code = 3263) . Negative - N egative POCT U NIT (test code = 3262) . Negative - Negati ve POCT U PROT (test code = 3259) Trace Negative - Negat kd POCT U GLU (test code = 3256) Neg Negative - Negati ve POCT U KETONE (test code = 3258) . Negative - Neg ative POCT U UROBILI (test code = 3260) . 0.2-1 POCT U BILI (test code = 3261) . Negative - Negat kd POCT U BLD (test code = 3257) . Negative - Negati ve POCT U COLOR (test code = 3266) . POCT U APPEAR (test code = 3267) [facility] METABOLIC PANEL (NA, K, CL, CO2, GLUCOSE, BUN, CREATININE, CA)2022-12-19 02:57:12* Test Item Value Reference Range Interpretation Comme nts NA (test code = 0054476912) 132 mmol/L 135-145 L K (test code = 1817969382) 3.6 mmol/L 3.5-5.0 CL (test code = 7503814776) 107 mmol/L 98-108 CO2 TOTAL (test code = 3783874129) 16 mmol/L 23-31 L AGAP (test code = 3878238090) 9 2-16 BUN (test code = 1747172656) 7 mg/dL 7-23 GLUCOSE (test code = 1441387961) 67 mg/dL 70-110 L CREATININE (test code = 9022069434) 0.48 mg/dL 0.50-1.04 L CALCIUM (test code = 0785542429) 8.0 mg/dL 8.6-10.6 L eGFR (test code = 2423146544) 160.3 mL/min/1.73m2 DANIELLE (test code = DANIELLE) Association of Glomerular Filtration Rate (GFR) and Staging of Kidney Disease* + --+ --+ ------+| GFR (mL/min/1.73 m2) ?| With Kidney Damage ?| ?Without Kidney Damage+ --------+ --------+ +| ?>90 ?| ?Stage one ?| ? Normal ?+ ---+ ---+ -------+| ?60-89 ?| ?Stage two ?| ? Decreased GFR ? + --+ --+ ------+| ?30-59 ?| ?Stage three ?| ? Stage three ? + --+ --+ ------+| ?15-29 ?| ?Stage four ? | ? Stage four ?+ ---+ ---+ -------+| ?<15 (or dialysis) ? ?| ?Stage five ? | ? Stage five ?+ ---+ ---+ -------+ *Each stage assumes the associated GFR level has been in effect for at least three months. ?Stages 1 to 5, with or without kidney disease, indicate chronic kidney disease. Notes: Determination of stages one and two (with eGFR >59mL/min/1.73 m2) requires estimation of kidney damage for at least three months as defined by structural or functional abnormalities of the kidney, manifested by either:Pathological abnormalities or Markers of kidney damage (including abnormalities in the composition of the blood or urine or abnormalities in imaging tests). Lab Interpretation (test code = 86862-7) Abnormal [facility] WITH [id number] 02:30:07* Test Item Value Reference Range Interpretation Comme nts WBC (test code = 6690-2) 6.75 See_Comment [Automated Site [employer]] The system which generated this result transmitted reference range: 4.30 - 11.10 10*3/?L. The reference range was not used to interpret this result as normal/abnormal. RBC (test code = 789-8) 4.03 See_Comment [Automated [employer]] The system which generated this result transmitted reference range: 3.93 - 5.25 10*6/?L. The reference range was not used to interpret this result as normal/abnormal. HGB (test code = 718-7) 11.4 g/dL 11.6-15.0 L HCT (test code = 4544-3) 34.1 % 35.7-45.2 L MCV (test code = 787-2) 84.6 fL 80.6-95.5 MCH (test code = 785-6) 28.3 pg 25.9-32.8 MCHC (test code = 786-4) 33.4 g/dL 31.6-35.1 RDW-SD (test code = 70393-1) 43.2 fL 39.0-49.9 RDW-CV (test code = 788-0) 14.0 % 12.0-15.5 PLT (test code = 777-3) 268 See_Comment [Automated KeraFASTa ge] The system which generated this result transmitted reference range: 166 - 358 10*3/?L. The reference range was not used to interpret this result as normal/abnormal. MPV (test code = 87331-1) 10.6 fL 9.5-12.9 NRBC/100 WBC (test code = 2397872469) 0.0 See_Comment [Automated Chatwala ssage] The system which generated this result transmitted reference range: 0.0 - 10.0 /100 WBCs. The reference range was not used to interpret this result as normal/abnormal. NRBC x10^3 (test code = 3502627162) See_Comment [Automated [employer]eraFASTa ge] The system which generated this result transmitted reference range: 10*3/?L. The reference range was not used to interpret this result as normal/abnormal. GRAN MAT (NEUT) % (test code = 770-8) 85.9 % IMM GRAN % (test code = 2621249319) 0.40 % LYMPH % (test code = 736-9) 7.1 % MONO % (test code = 5905-5) 6.2 % EOS % (test code = 713-8) 0.1 % BASO % (test code = 706-2) 0.3 % GRAN MAT x10^3(ANC) (test code = 1194605385) 5.79 10*3/uL 1.88-7.09 IMM GRAN x10^3 (test code = 2464418484) 0.03 10*3/uL 0.00-0.06 LYMPH x10^3 (test code = 731-0) 0.48 10*3/uL 1.32-3.29 L MONO x10^3 (test code = 742-7) 0.42 10*3/uL 0.33-0.92 EOS x10^3 (test code = 711-2) 0.03-0.39 L BASO x10^3 (test code = 704-7) 0.01-0.07 Lab Interpretation (test code = 08790-5) Abnormal [facility] URINALYSIS W/O SPECIFIC [id number] 19:10:00* Test Item Value Reference Range Interpretation Comme nts POCT PH U (test code = 3254) 7 mg/dl 5-8 POCT U LEUK EST (test code = 3263) negative Negative - Negative POCT U NIT (test code = 3262) negative Negative - Negati ve POCT U PROT (test code = 3259) trace Negative - Negat kd POCT U GLU (test code = 3256) negative Negative - Negati ve POCT U KETONE (test code = 3258) negative Negative - Neg ative POCT U BLD (test code = 3257) trace Negative - Negati ve [facility] URINALYSIS W SPECIFIC [id number] 20:18:00* Test Item Value Reference Range Interpretation Comme nts POCT U SP GRAV (test code = 3255) . 1.005-1.025 POCT PH U (test code = 3254) . 5-8 POCT U LEUK EST (test code = 3263) . Negative - N egative POCT U NIT (test code = 3262) . Negative - Negati ve POCT U PROT (test code = 3259) trace Negative - Negat kd POCT U GLU (test code = 3256) neg Negative - Negati ve POCT U KETONE (test code = 3258) . Negative - Neg ative POCT U UROBILI (test code = 3260) . 0.2-1 POCT U BILI (test code = 3261) . Negative - Negat kd POCT U BLD (test code = 3257) . Negative - Negati ve POCT U COLOR (test code = 3266) . POCT U APPEAR (test code = 3267) . [facility] URINALYSIS W SPECIFIC [id number] 15:33:00* Test Item Value Reference Range Interpretation Comme nts POCT U SP GRAV (test code = 3255) . 1.005-1.025 POCT PH U (test code = 3254) . 5-8 POCT U LEUK EST (test code = 3263) . Negative - N egative POCT U NIT (test code = 3262) . Negative - Negati ve POCT U PROT (test code = 3259) TRACE Negative - Negat kd POCT U GLU (test code = 3256) NEG Negative - Negati ve POCT U KETONE (test code = 3258) . Negative - Neg ative POCT U UROBILI (test code = 3260) . 0.2-1 POCT U BILI (test code = 3261) . Negative - Negat kd POCT U BLD (test code = 3257) . Negative - Negati ve POCT U COLOR (test code = 3266) . POCT U APPEAR (test code = 3267) . [facility] [id number] 15:33:00* Test Item Value Reference Range Interpretation Comme nts POCT U SP GRAV (test code = 3255) . 1.005-1.025 POCT PH U (test code = 3254) . 5-8 POCT U LEUK EST (test code = 3263) . Negative - N egative POCT U NIT (test code = 3262) . Negative - Negati ve POCT U PROT (test code = 3259) TRACE Negative - Negat kd POCT U GLU (test code = 3256) NEG Negative - Negati ve POCT U KETONE (test code = 3258) . Negative - Neg ative POCT U UROBILI (test code = 3260) . 0.2-1 POCT U BILI (test code = 3261) . Negative - Negat kd POCT U BLD (test code = 3257) . Negative - Negati ve POCT U COLOR (test code = 3266) . POCT U APPEAR (test code = 3267) . [facility] Hour Post [id number] 05:29:33* Test Item Value Reference Range Interpretation Comme nts GLUC 1 HR (test code = 0116495022) 98 mg/dL 120-170 L Lab Interpretation (test cod e = 95034-6) Abnormal [facility] with [id number] 05:25:14* Test Item Value Reference Range Interpretation Comme nts WBC (test code = 6690-2) 5.37 See_Comment [Automated messa ge] The system which generated this result transmitted reference range: 4.30 - 11.10 10*3/?L. The reference range was not used to interpret this result as normal/abnormal. RBC (test code = 789-8) 3.87 See_Comment L [Automated messa ge] The system which generated this result transmitted reference range: 3.93 - 5.25 10*6/?L. The reference range was not used to interpret this result as normal/abnormal. HGB (test code = 718-7) 10.9 g/dL 11.6-15.0 L HCT (test code = 4544-3) 34.2 % 35.7-45.2 L MCV (test code = 787-2) 88.4 fL 80.6-95.5 MCH (test code = 785-6) 28.2 pg 25.9-32.8 MCHC (test code = 786-4) 31.9 g/dL 31.6-35.1 RDW-SD (test code = 35166-8) 43.6 fL 39.0-49.9 RDW-CV (test code = 788-0) 13.6 % 12.0-15.5 PLT (test code = 777-3) 290 See_Comment [Automated messa ge] The system which generated this result transmitted reference range: 166 - 358 10*3/?L. The reference range was not used to interpret this result as normal/abnormal. MPV (test code = 61802-2) 11.1 fL 9.5-12.9 NRBC/100 WBC (test code = 4609332578) 0.0 See_Comment [Automated me ssage] The system which generated this result transmitted reference range: 0.0 - 10.0 /100 WBCs. The reference range was not used to interpret this result as normal/abnormal. NRBC x10^3 (test code = 5351216198) See_Comment [Automated messa ge] The system which generated this result transmitted reference range: 10*3/?L. The reference range was not used to interpret this result as normal/abnormal. GRAN MAT (NEUT) % (test code = 770-8) 50.3 % IMM GRAN % (test code = 9443055446) 0.20 % LYMPH % (test code = 736-9) 34.6 % MONO % (test code = 5905-5) 9.1 % EOS % (test code = 713-8) 4.7 % BASO % (test code = 706-2) 1.1 % GRAN MAT x10^3(ANC) (test code = 2551144221) 2.70 10*3/uL 1.88-7.09 IMM GRAN x10^3 (test code = 8407634662) 0.00-0.06 LYMPH x10^3 (test code = 731-0) 1.86 10*3/uL 1.32-3.29 MONO x10^3 (test code = 742-7) 0.49 10*3/uL 0.33-0.92 EOS x10^3 (test code = 711-2) 0.25 10*3/uL 0.03-0.39 BASO x10^3 (test code = 704-7) 0.06 10*3/uL 0.01-0.07 Lab Interpretation (test code = 91711-3) Abnormal [facility] URINALYSIS W SPECIFIC [id number] 15:39:00* Test Item Value Reference Range Interpretation Comme nts POCT U SP GRAV (test code = 3255) . 1.005-1.025 POCT PH U (test code = 3254) . 5-8 POCT U LEUK EST (test code = 3263) . Negative - N egative POCT U NIT (test code = 3262) . Negative - Negati ve POCT U PROT (test code = 3259) neg Negative - Negat kd POCT U GLU (test code = 3256) neg Negative - Negati ve POCT U KETONE (test code = 3258) . Negative - Neg ative POCT U UROBILI (test code = 3260) . 0.2-1 POCT U BILI (test code = 3261) . Negative - Negat kd POCT U BLD (test code = 3257) . Negative - Negati ve POCT U COLOR (test code = 3266) . POCT U APPEAR (test code = 3267) . [facility] URINALYSIS W SPECIFIC [id number] 15:39:00* Test Item Value Reference Range Interpretation Comme nts POCT U SP GRAV (test code = 3255) . 1.005-1.025 POCT PH U (test code = 3254) . 5-8 POCT U LEUK EST (test code = 3263) . Negative - N egative POCT U NIT (test code = 3262) . Negative - Negati ve POCT U PROT (test code = 3259) 1+ Negative - Negat kd POCT U GLU (test code = 3256) Neg Negative - Negati ve POCT U KETONE (test code = 3258) . Negative - Neg ative POCT U UROBILI (test code = 3260) . 0.2-1 POCT U BILI (test code = 3261) . Negative - Negat kd POCT U BLD (test code = 3257) . Negative - Negati ve POCT U COLOR (test code = 3266) . POCT U APPEAR (test code = 3267) .. [facility] URINALYSIS W SPECIFIC [id number] 15:39:00* Test Item Value Reference Range Interpretation Comme nts POCT U SP GRAV (test code = 3255) . 1.005-1.025 POCT PH U (test code = 3254) . 5-8 POCT U LEUK EST (test code = 3263) . Negative - N egative POCT U NIT (test code = 3262) . Negative - Negati ve POCT U PROT (test code = 3259) 1+ Negative - Negat kd POCT U GLU (test code = 3256) Neg Negative - Negati ve POCT U KETONE (test code = 3258) . Negative - Neg ative POCT U UROBILI (test code = 3260) . 0.2-1 POCT U BILI (test code = 3261) . Negative - Negat kd POCT U BLD (test code = 3257) . Negative - Negati ve POCT U COLOR (test code = 3266) . POCT U APPEAR (test code = 3267) .. [facility] URINALYSIS W/O SPECIFIC [id number] 20:59:00* Test Item Value Reference Range Interpretation Comme nts POCT PH U (test code = 3254) 7 mg/dl 5-8 POCT U LEUK EST (test code = 3263) neg Negative - Negative POCT U NIT (test code = 3262) neg Negative - Negati ve POCT U PROT (test code = 3259) trace Negative - Negat kd POCT U GLU (test code = 3256) neg Negative - Negati ve POCT U KETONE (test code = 3258) neg Negative - Neg ative POCT U BLD (test code = 3257) neg Negative - Negati ve [facility] URINALYSIS W/O SPECIFIC [id number] 20:59:00* Test Item Value Reference Range Interpretation Comme nts POCT PH U (test code = 3254) 7 mg/dl 5-8 POCT U LEUK EST (test code = 3263) neg Negative - Negative POCT U NIT (test code = 3262) neg Negative - Negati ve POCT U PROT (test code = 3259) trace Negative - Negat kd POCT U GLU (test code = 3256) neg Negative - Negati ve POCT U KETONE (test code = 3258) neg Negative - Neg ative POCT U BLD (test code = 3257) neg Negative - Negati ve [facility] URINALYSIS W/O SPECIFIC [id number] 20:59:00* Test Item Value Reference Range Interpretation Comme nts POCT PH U (test code = 3254) 7 mg/dl 5-8 POCT U LEUK EST (test code = 3263) neg Negative - Negative POCT U NIT (test code = 3262) neg Negative - Negati ve POCT U PROT (test code = 3259) trace Negative - Negat kd POCT U GLU (test code = 3256) neg Negative - Negati ve POCT U KETONE (test code = 3258) neg Negative - Neg ative POCT U BLD (test code = 3257) neg Negative - Negati ve [facility] URINALYSIS W/O SPECIFIC [id number] 20:59:00* Test Item Value Reference Range Interpretation Comme nts POCT PH U (test code = 3254) 7 mg/dl 5-8 POCT U LEUK EST (test code = 3263) neg Negative - Negative POCT U NIT (test code = 3262) neg Negative - Negati ve POCT U PROT (test code = 3259) trace Negative - Negat kd POCT U GLU (test code = 3256) neg Negative - Negati ve POCT U KETONE (test code = 3258) neg Negative - Neg ative POCT U BLD (test code = 3257) neg Negative - Negati ve [facility] [id number] 20:57:00* Test Item Value Reference Range Interpretation Comme nts POCT PREG (test code = 1605) Positive On board controls acceptable with C Line (test code = 3574) Yes POCT PREG LOT # (test code = 3575) POCT PREG TEST DATE ( test code = 3576) [facility] [id number] 20:57:00* Test Item Value Reference Range Interpretation Comme nts POCT PREG (test code = 1605) Positive On board controls acceptable with C Line (test code = 3574) Yes POCT PREG LOT # (test code = 3575) POCT PREG TEST DATE ( test code = 3576) [facility] [id number] 20:57:00* Test Item Value Reference Range Interpretation Comme nts POCT PREG (test code = 1605) Positive On board controls acceptable with C Line (test code = 3574) Yes POCT PREG LOT # (test code = 3575) POCT PREG TEST DATE ( test code = 3576) [facility] [id number] 20:57:00* Test Item Value Reference Range Interpretation Comme nts POCT PREG (test code = 1605) Positive On board controls acceptable with C Line (test code = 3574) Yes POCT PREG LOT # (test code = 3575) POCT PREG TEST DATE ( test code = 3576) [facility] History and Physical Notes Date/Time Note Provider Source 2023-01-29 08:55:09 [id number]:[id number] TRIAGE/L&D HISTORY & PHYSICALIDENTIFYING DATAJames Valadez is 23 year old, Black or , 39w0d, female with LENNY 02/05/2023, by Ultrasound. : 2000MRN: [id number] Care Physician: Gabi Gregory COMPLAINTInduction of Labor for TOLACHISTORY OF PRESENT ILLNESSJames Valadez is a 23 year old at 39w0d who presents for Induction of LaborPatient denies vaginal bleeding, denies leakage of fluid, admits minimal irregular contractions. Patient denies headache, denies nausea/vomiting, denies RUQ pain, denies visual abnormalities.Endorses normal movement.PAST OBSTETRIC HISTORYOB History Para Term AB Living 2 1 1 0 0 1 SAB IAB Ectopic Multiple Live Births 0 0 0 0 1 # Outcome Date GA Lbr Howard/2nd Weight Sex Delivery Anes PTL Lv 2 Current 1 Term 06/03/20 39w1d 2685 g F , L EPI CORY Complications: Non Reassuring Status PAST MEDICAL HISTORYProblem list: Patient Active Problem List Diagnosis Date Noted 39 weeks gestation of 01/29/2023 Tubal ligation status 12/12/2022 Supervision of high-risk 09/03/2022 Multiparity 09/03/2022 History of section 09/03/2022 Desires (vaginal after ) trial 09/03/2022 Over weight 09/20/2021 History of asthma 03/11/2015 Operations: Past Surgical History: Procedure Laterality Date SECTION N/A 06/03/2020 Surgeon: Kaylyn Sotomayor MD; Location: Labor and Delivery [facility] [place] COLPOSCOPY 01/2021 Past Medical History: Diagnosis Date Anemia [address] caba, not on iron supplements Asthma 2008 no episodes since age 8 Pap smear abnormality of cervix CURRENT HEALTH STATUSMedications: Current Facility-Administered Medications Medication Dose Route Frequency Last Rate Last Admin D5W-LR IV infusion 1,000 mL 1,000 mL IV Infusion TITRATE 125 mL/hr at 01/29/23 0938 1,000 mL at 01/29/23 0938 lactated ringers IV infusion 500 mL 500 mL IV Infusion PRN - SEE INSTRUCTIONS lidocaine 1% (PF) (XYLOCAINE) injection 0.3 mL 0.3 mL Infiltration PRN - SEE INSTRUCTIONS lidocaine 1% (XYLOCAINE) 10 mg/mL (1 %) injection 50 mL 50 mL Infiltration PRN - SEE INSTRUCTIONS sodium citrate-citric acid (BICITRA) 500-334 mg/5 mL solution 30 mL 30 mL Oral PRE-PROCEDURE ONCE Allergies and drug reactions: Patient has no known allergies.HOME MEDICATIONSMedications Prior to Admission Medication Sig Dispense Refill Last Dose [id number] acid 29 mg iron- 1 mg per tablet Take 1 tablet by mouth in the morning. 90 tablet 3 Taking SOCIAL HISTORYTobacco History: Social History Tobacco Use Smoking Status Never Passive exposure: Never Smokeless Tobacco Never Tobacco Comments experimented with smoking at age 14 Drug History: Social History Substance and Sexual Activity Drug Use No Comment: quit marijuana in 2017 Alcohol History: Social History Substance and Sexual Activity Alcohol Use Yes Comment: socially FAMILY HISTORYFamily History Problem Relation Age of Onset Cancer Father non-hodgkin's lymphoma Heart Maternal Grandmother Diabetes Maternal Grandfather Neurological Maternal Grandfather seizures Hypertension Paternal Grandmother Diabetes Paternal Grandmother Cancer Paternal Grandfather prostate No Significant Medical Problems Mother No Significant Medical Problems Brother Arthritis NoFHx Asthma NoFHx defects NoFHx Breast Cancer NoFHx Colon Cancer NoFHx Ovarian Cancer NoFHx Uterine Cancer NoFHx Depression NoFHx Genetic NoFHx High cholesterol NoFHx Mental retardation NoFHx Osteoporosis NoFHx Psychiatry NoFHx REVIEW OF SYSTEMSGeneral: negativeSkin: negativeHEENT: negativeNeck: negativeHEME: negativeResp: negativeCardio: negativeGI: negativeGU: negativeEndo: negativeNeuro: negativeBack: negativeMSS: negativePsych: negativeVITAL SIGNSBP: (114)/(67) Temp: [36.8 ?C (98.2 ?F)] Temp source: Oral (01/29 08)Pulse: [70-85] Resp: [15-16] SpO2: [99 %-100 %] Height: [152.4 cm (5')] Weight: [62.6 kg (138 lb)] BMI (calculated): [26.95] PHYSICAL EXAMINATIONSGeneral: patient alert and in no acute distressHEENT: symmetric, negative for massesLungs: clear to auscultation bilaterally, unlabored breathingCardiology: regular rate and rhythm, no murmur and peripheral pulses intact and regularAbdomen: soft, non-tender, non-distended, no liver, spleen or abnormal masses palpated and GravidExtremities: no clubbing, cyanosis, or edemaNeuro: patient moving all extremities, no facial droopGU: deferred REVIEW OF LABORATORY, PATHOLOGY, AND RADIOLOGY DATALab results:Type & Screen Lab Results Component Value Date/Time IABORH O POSITIVE 01/29/2023 09:39 AM IAT Negative 01/29/2023 09:39 AM SerologiesLab Results Component Value Date/Time VZVIGG Positive 09/03/2022 04:10 AM RUBG Positive 09/03/2022 04:10 AM SYPIGG Non-reactive 11/13/2022 11:14 AM SYPIGG Nonreactive 03/09/2015 05:01 PM HBSAG Negative 01/29/2023 09:39 AM HBSAG 0.08 01/29/2023 09:39 AM ChlamydiaLab Results Component Value Date/Time VCAA Negative 01/08/2023 02:25 PM Group B StrepLab Results Component Value Date/Time CGB Negative 01/08/2023 02:42 PM GTTLab Results Component Value Date/Time HIWI8PO 98 (L) 10/30/2022 11:55 AM CBCLab Results Component Value Date/Time HGB 10.5 (L) 01/08/2023 02:20 PM HCT 33.1 (L) 01/08/2023 02:20 PM PLT 299 01/08/2023 02:20 PM Active Hospital Problems Diagnosis Date Noted 39 weeks gestation of 01/29/2023 Tubal ligation status 12/12/2022 History of section 09/03/2022 History of asthma 03/11/2015 Reports as a child not on meds, reports resolved Resolved Hospital Problems No resolved problems to display. Present on Admission: History of asthma History of section Tubal ligation status 39 weeks gestation of pregnancyASSESSMENT AND Alexus Dubois Brown is a 23 year old at 39w0d by Ultrasound (19) who presents for IOL for TOLAC.Previous x 1- PCS for NRHFT [facility] [address] [facility], documented LTCS - Patient counseled and desires TOlaC, see separate note - 62.5% chance of success- SVE: / / - Contractions (number / 10 minute): 0- Plan: Admit for IOL. Plan for FB placement History of asthma - In childhood, not on meds - Denies hospitalizations/intubations MPDPS-counseled on admission and desires, see separate counseling note-consents signed 10/30/22-past surgical hx: prev x1-weight: 138 lbsAntepartum course reviewed- 1 h 98, sero negative, Rimmune, VZVimmune, O positive/IAT negative, GBS negative, Pap NILM 08/2022- H/H, plt: 10.5 / 33.1, 299 on 01/08/23- PP control plan: BTL[place] RMCHPFetus- Presentation on admission: cephalic - anterior placenta - EFW: 2889 g, 12%tile- FHT reactive and reassuring- Normal anatomy scanPlacenta Accreta ScreeningPrior ? : YesPrior Uterine Surgery?: YesPlacenta low lying/previa in current ? : NoUltrasound suspicion of PASD in current ?: NoScreening outcome:A positive screening outcome indicates a history of prior delivery or prior uterine surgery, AND the presence of either a placenta low lying/previa or ultrasound suspicion of PASD in the current . Negative screening.Discussed with MD Leann Fajardo MDInformed consent discussed with the patient, including: condition, proposed care, treatments and services, alternative forms of treatment, and risks of no treatment. Details discussed around the procedures to be used, and the risks and hazards involved, potential benefits, and side effects of the patient s proposed care, treatment, and services; the likelihood of the patient achieving his or her goals; and any potential problems that might occur during recuperation.Reasonable alternative also discussed with the patient s proposed care, treatment, and services. The discussion encompasses risks, benefits, and side effects related to the alternative and risks related to not receiving the proposed care, treatment, and services. ssociated attestation - Lisa Cates MD - 01/31/2023 8:41 AM CDT I was supervising [facility] faculty for the admission of this patient.The admission plan was discussed with me.09255-5Gokfneo and physical [id number], Shannon M1.2.840.480463.1.13.104.2.7.2.8 35723FxrhaKxxxasoNBE6176-35-49Z4 8:41:14History and physical noteTXT1.2.840.562270.1.13.104.2 .7.2.501129|[id number] e for patient care-OBSTETRICS & GYNECOLOGY-OBSTETRICS & GYNECOLOGY[address] LxdaXvqluerjaLgvonetpeEQSC281236 8488IENQZNDEROEOFSAIVDXQYC9306-7 08:41:141.2.840.212471.1.72 .3.15|1.2.840.164910.1.13.104.2. 7.2.727879_[id number] OG-OBSTETRICS & GYNECOLOGY [facility] Procedure Notes Date/Time Note Provider Source 2023-01-29 11:22:43 o3oBgSDF5pi5dnh5Y/rI 9yXvKpBjCL o1P0MYyImLIlX65EqLZtaYY+G2TVa1 Yip53308-56-60G62:22:43Procedu re(s): INSERT CERVICAL DILATORPre-Procedure Diagnose(s): 39 weeks gestation of pregnancyPost-Procedure Diagnose(s): 39 weeks gestation of pregnancy James Valadez is a 23 year old female 39w0d Rice insertion: Insertion date and time: 01/29/2023 at 1045Foley catheter inserted through cervix in sterile fashion and inflated with 60 cc sterile saline. Rice bulb firmly in place inside internal os. Catheter taped to patient leg under traction. Patient tolerated procedure well.Please use the table below for: SVE 1/0/-3CERVIX: Consistency : moderately soft; Position: median, Station: -3Score 0 1 2 3 Dilation (cm) 0 cm 1-2 cm 3-4 cm >5 cm Effacement 0 - 30 % 40 - 50 % 60 - 70 % > 80 % Consistency of the cervix Stiff Moderately soft Very soft Position of the cervix Posterior Median Anterior Station -3 -2 -1 to 0 +1, +2 Lupillo Stone MD ssociated attestation - Lisa Cates MD - 01/31/2023 8:40 AM CDT I was [facility] faculty present and available for placement of rice bulb or dilapan for labor induction by the resident. The plan was discussed with me.24601-5Yrteyulgx [id number], Shannon M1.2.840.143176.1.13.104.2.7.2 .971032TzfajLvbbtmgRMK2729-31- 21T08:40:22Procedure noteTXT1.2.840.687433.1.13.104 .2.7.2.338384|[id number] [facility] for patient careOG-OBSTETRICS & GYNECOLOGY-OBSTETRICS & GYNECOLOGY[address] CvhmNpfeaisknSzacbwzihHAIN5400 065009WRISSJGKYPKKRHHBDQNVXP92 02-02-21T08:40:221.2.840.53767 0.1.72.3.15|1.2.840.785383.1.1 3.104.2.7.2.727879_[id number] OG-OBSTETRICS & GYNECOLOGY [facility] Notes Date/Time Note Provider Source 2023-02-01 12:09:38 RCj0bJrPj01TZRZrOvXh 1X701pg23W +SueNcvBzEMjbHcgEDDDvEWRw1hzct +DX62384-10-33L45:09:38Formatt ing of this note is different from the original.This note was copied from a baby's chart. Assessment (most recent) Assessment - 02/01/23 1200 General Information Visit Follow-up Breast Assessment Other Filling Hand Alterations Seamstress Observation Observed;Mom states infant latches well with no pain Position right side Football;Infant latched effectively;Audible swallows;Suckled in coordinated bursts Mother demonstrated teach back of Positioning and latching infant at breast Follow up [facility] warmline Recommended Feeding Plan Recommended feeding plan On-demand , 8-12 times in 24 hours not to exceed 6 hours between feeds Called to rm. Baby latching well with audible swallowing.Nikki Massey RN,BSN,IBCLCPager - [phone] signed by Nikki Massey RN at 02/01/2023 12:10 PM QTL09365-1Xcidxgbmoi WcteQR9253-70-51L57:10:10Obste trics NoteTXT1.2.840.218411.1.13.104 .2.7.2.663933|[id number] lable for patient [id number] L Linde RN[address] HptsNqxtcxxckHpebmaatyYXLH6024 [id number] 02-02-22T12:10:101.2.840.49982 0.1.72.3.15|1.2.840.049148.1.1 3.104.2.7.2.727879_[id number] Nkiki Massey RN [facility] 2023-02-01 11:27:05 1jgLjvWHsgd/gxvHe98L 77SC4GJANg g+eZBNYAwLYPW74+EbiuYp5H+YJbHf 7BLg5665-91-42G21:27:05Formatt ing of this note might be different from the original.Problem: Discharge Planning - PostpartumGoal: Adequate for dischargeOutcome: Adequate for dischargeGoal: Mood stableOutcome: Adequate for discharge 50510-6Znho of care wqqmFU4209-89-88B41:27:09Plan of care noteTXT1.2.840.185813.1.13.104 .2.7.2.309197|[id number] lable for patient [id number] George RN[address]TX[place] 215956IKSOWTWDRAVTNBBAZBZIGN34 02-02-22T11:27:091.2.840.37975 0.1.72.3.15|1.2.840.335542.1.1 3.104.2.7.2.727879_[id number] Ortiz Richard HARMON [facility] 2023-02-01 07:33:32 svhrYxfdkAE5wjuiSUFw rDKNUNORVv 5c9uhMtQJJ0Ni65EpjBaVgh0Ui+qVZ 413455-21-72A92:33:32Formatt ing of this note might be different from the original.Problem: Discharge Planning - PostpartumGoal: Adequate for dischargeOutcome: Adequate for dischargeGoal: Mood stableOutcome: Adequate for discharge 68135-2Yxau of care hsseZD7541-50-17M46:33:35Plan of care noteTXT1.2.840.127592.1.13.104 .2.7.2.675554|[id number] lable for patient ozbc238994228Mfqeefzs L Murphy RN[address]TX[address] 604609ZKBDKKJQJYXUQOCZQZVENT16 02-02-22T07:33:351.2.840.85687 0.1.72.3.15|1.2.840.998947.1.1 3.104.2.7.2.727879_[id number] Heather Quinn RN [facility] 2023-01-31 19:21:41 +tSMZGdxNIFG/8EW/G1z AjnnOggrV/ C/sC9y1QkY5yG1K0h/l0dKT1TI2mdP n9sC5868-25-05S78:21:41Formatt ing of this note might be different from the original.Problem: Discharge Planning - PostpartumGoal: Adequate for dischargeOutcome: Progressing as expectedGoal: Mood stableOutcome: Progressing as expected 04263-6Bcwl of care xyetVB4649-90-96F77:21:43Plan of care noteTXT1.2.840.835532.1.13.104 .2.7.2.976566|[id number] [facility] for patient [id number] Bennett RN[address]vestonTXTX[address] 741320NHALWWNIQVNOIBOQFHQGUR27 02-02-21T19:21:431.2.840.80246 0.1.72.3.15|1.2.840.981683.1.1 3.104.2.7.2.727879_[id number] Heather Gilliland RN [facility] 2023-01-30 19:24:04 3jSktAAziXqf+bR/9X+T +Iw2yntPuJ j1rH1/5m5sQ8JZVVKI4o+thrqM6q+B Qi1e9102-98-18C27:24:04Formatt ing of this note might be different from the original.Problem: Intrapartum process (including labor pain)Goal: Absence of or reduction of complications of laborOutcome: ResolvedGoal: Able to cope with painOutcome: ResolvedGoal: Adequate to move to next level of careOutcome: ResolvedGoal: Reduction in pain sensationOutcome: Resolved 79976-0Nhye of care qosrRR9001-82-60V38:24:08Plan of care noteTXT1.2.840.560156.1.13.104 .2.7.2.271955|[id number] lable for patient [address] 336576YDHFYJQWRQTXOAOXUPKHMN21 03-02-20T19:24:081.2.840.09536 0.1.72.3.15|1.2.840.819832.1.1 3.104.2.7.2.727879_[id number] [facility] 2023-01-30 16:27:48 T4+oeICJ0NEZOhWjHDNl 2jbkVn3KK+ joX6Qdjwt+2qty4tfuI/wvRCGmv9H3 cPq77888-16-51P55:27:48Formatt ing of this note might be different from the original.Problem: Intrapartum process (including labor pain)Goal: Absence of or reduction of complications of laborOutcome: Progressing as expectedGoal: Able to cope with painOutcome: Progressing as expectedGoal: Adequate to move to next level of careOutcome: Progressing as expectedGoal: Reduction in pain sensationOutcome: Progressing as expected Problem: Discharge Planning - PostpartumGoal: Adequate for dischargeOutcome: Progressing as expectedGoal: Mood stableOutcome: Progressing as expected 42688-6Foyf of care fubsJW7067-26-53P55:27:53Plan of care noteTXT1.2.840.733189.1.13.104 .2.7.2.880376|[id number] lable for patient [address]TX[address]SOKLBQXODBABGBBSVYHAEA21 03-02-20T16:27:531.2.840.97030 0.1.72.3.15|1.2.840.209453.1.1 3.104.2.7.2.727879_[id number] [facility] 2023-01-30 05:14:26 ejsMJ82emWLaBRnpYwte Pnm9YlpTab ugm1ez+hg0sY0tPgozVCjjiLlHtLD7 pFn69436-33-56P33:14:26Formatt ing of this note might be different from the original.Problem: Intrapartum process (including labor pain)Goal: Absence of or reduction of complications of laborOutcome: Progressing as expectedGoal: Able to cope with painOutcome: Progressing as expectedGoal: Adequate to move to next level of careOutcome: Progressing as expectedGoal: Reduction in pain sensationOutcome: Progressing as expected Problem: Discharge Planning - PostpartumGoal: Adequate for dischargeOutcome: Progressing as expectedGoal: Mood stableOutcome: Progressing as expected 87498-2Mkra of care uhdyPO7257-04-58K79:14:31Plan of care noteTXT1.2.840.179197.1.13.104 .2.7.2.611799|[id number] lable for patient zgtt550137964Wgoifx J York RN[address]TXTX[address] 689973FNXXRKZHWFQPTQULXMAWHF07 03-02-20T05:14:311.2.840.42214 0.1.72.3.15|1.2.840.775549.1.1 3.104.2.7.2.727879_[id number] Rachel Black RN [facility] 2023-01-29 23:31:35 e3aCp1Uv/Jms4X72aXKV D6Tm0vt8m/ 23WQLfHWlE0YSzsgtDVN3vqyae7+WC u6ru1238-81-52M24:31:35Formatt ing of this note is different from the original.Delivery Date: 01/29/2023 Delivery Time: 10:01 PM DELIVERY BY SECTIONDate of Service: : 01/29/2023 at 10:01 PM Admitted for: TOLAC, Repeat Lower uterine transverse section with no extension, BTL, Pfannenstiel, Closed with suture, EBL 600 cc, No complications, Findings: dense adhesions along anterior aspect of uterus, thin filmy adhesions along posterior uterus, omentum adhered in filmy adhesions to anterior uterus, normal appearing bilateral fallopian tubes and ovariesDelivery Summary Sex: male [place] Weight: 3010 g 1 Minute 5 Minute 10 Minute Totals: 2 9 9 Primary Indication:The patient was taken to the operating room for a repeat section due to: unstable lie at 39w0d weeks.Procedures:Repeat Lower uterine transverse section with no extension Modified [place] bilateral tubal ligationSpecimens Removed: PlacentaClinical Trials: NoneSurgeon: Eduarda Steele MD Improvement Analyst Surgeon: Cindy Ayala Faculty: Vira Callahan MDReport:Prophylactic antibiotic, Ancef was given before patient was taken to OR. After arrival to the operating room patient was placed in the supine position with left lateral tilt after administration of spinal anesthesia. LaparotomyA pfannenstiel incision was made through the anterior abdominal wall with #10 scalpel. The incision was extended sharply with the #10 scalpel through the subcutaneous tissue to the level of fascia. The fascia was entered sharply with a #10 scalpel (Pfannenstiel) in the midline and extended in semi-elliptical fashion with Toribio scissor. The underlying muscles were dissected off the overlying fascia by grasping the superior aspect of fascia with two deedee clamps and blunt dissection was used along the midline. The fascia was further from rectus muscle with Toribio scissor and/or cautery. In similar fashion, the lower aspect of fascia was also grsaped with two Deedee clamps and both blunt and sharp dissection was used to separate fascia from rectus muscle. The rectus muscles were in the midline sharply with bovie cauterization . The peritoneum was then entered sharply by grasping and tenting the peritoneum with two hemostats and enter with Metzenbaum scissor. The peritoneal incision was then extended superiorly and inferiorly under direct visualization with care being taken to avoid bladder and bowel. Extensive lysis of adhesions was performed sharply and bluntly to separate the uterus from surrounding organs and abdominal wall. The peritoneal incision was enlarged bluntly by lateral traction from the surgeon's and operating room assistant's hand.Delivery A bladder flap was developed by grasping with Kazakh forcep and enter with Metzenbaun scissor. Then sharp and blunt dissection with Metzenbaum scissor and fingers were performed. A low transverse hysterotomy was made then with #10 scalpel and extended laterally and cephalad with fingers in a low transverse fashion with Manu Bedoya technique with care being taken to avoid injury to the fetus. The amniotic (membranes) were then entered with spontaneous rupture of membrane, and the amniotic fluid was noted to be clear . The head was delivered manually without aid of vaginal hand. The head was flexed and delivered through the hysterotomy incision in a non-traumatic fashion with aid of fundal pressure applied by the assistant manager of operations surgeon . The body was delivered with traction on the head along with fundal pressure. After delivery of body-bulb suction was performed from oropharynx and nostril with removal of clear amniotic fluid. Fetus was delivered in cephalic presentation. With delivery the baby, no extension was noted. Placenta was delivered spontaneously with steady traction on cord and manual separation of placenta from uterine wall.ClosureUterine cavity was cleaned after placental delivery with lap sponge x 2. The hysterotomy was closed in one layer with stitches using 0 chromic with continuous locking stitches. Hemostasis was achieved as needed with electrocautery and figure eight suture ligation. The ovaries/tubes/uterine surface were evaluated. They were found to be normal.PROCEDURE - BILATERAL TUBAL LIGATIONThe right fallopian tube was grasped at midportion with Cr forceps and followed out to distal end until the fimbria was visualized. The fallopian tube was ligated and resected with Modified [place] technique - Cr clamp was placed on fallopian tube and placed on gentle traction. The avascular portion of mesosalpinx was bluntly perforated with bovie. Four 0-plaingut sutures were passed through the window and the proximal and distal portion of the tube was ligated. Metzebaum scissor was used to transect the intervening segment of tube individually next to each ligating sutures. . The transected ends of fallopian tube were examined to insuring the presence of fallopian lumen and good hemeostasis. The left fallopian tube was grasped at midportion with [place] forceps and followed out to distal end until the fimbria was visualized. The fallopian ligated with 0-plain guts sutures with Modified [place] technique - Cr clamp was placed on fallopian tube and placed on gentle traction. The avascular portion of mesosalpinx was bluntly perforated with bovie. Four 0-plaingut sutures were passed through the window and the proximal and distal portion of the tube was ligated. Metzebaum scissor was used to transect the intervening segment of tube individually next to each ligating sutures. . After insuring good hemeostatis of the transected ends and the presence of fallopian lumens, the fallopian tube was replaced into abdomen.Bladder flap was reapproximated and closed with continuous running stitches using 3-0 monocryl suture. Fascia was closed with running stitches using 0 PDS. Hemostasis was checked for and found to be adequate. The subcutaneous tissue was irrigated and hemostasis was achieved where needed with electrocautery. Subcutaneous layer was closed with vicryl. The skin was then closed with subcutaneous stitches using monocryl sutures. The incision was cleaned and covered with a compression bandage and the procedure considered to be complete at this time.Intraoperative Complications: noneEBL: 600 Uterotonics: 30 units pitocin at a rate of 300 cc/hr. Disposition:The patient tolerated the procedure well. She was recovered in Obstetric PACU for close monitoring in stable condition, with a contracted uterus and normal transvaginal bleeding. The infant was sent to NICU. A segment of the cord was obtained for umbilical cord gases. Cord blood gas was not available at time of operative note entered. Please see Epic for update. The placenta was not sent to pathology.Eduarda Steele MDOB/CHEMICAL PROCESSING SUPERVISOR PGY- 11:43 PM ssociated attestation - Vira Callahan MD - 01/30/2023 7:33 AM CDT Repeat lower segment section, bilateral tubal ligation, and adhesiolysis performed, uncomplicated. I was present in the operating room during the procedure that was performed under my supervision. Please see the Resident's note for additional details. 28564-6Auxci and delivery summary [id number], Hassan M1.2.840.014117.1.13.104.2.7.2 .439614MejlqgxYnjlimDZZ1243-51 -20T07:33:26Labor and delivery summary noteTXT1.2.840.945064.1.13.104 .2.7.2.962230|[id number] lable for patient careOG-OBSTETRICS & GYNECOLOGYOKLAHOMA CITY [facility] – [place] CITYOBSTETRICS & GYNECOLOGY[address]TXTX[address] 337696CVRREBEIAJKLBUETOSIHLO83 03-02-20T07:33:261.2.840.75776 0.1.72.3.15|1.2.840.415675.1.1 3.104.2.7.2.727879_[id number] [facility] 2023-01-29 20:35:28 /xiXFids1wyil+2s5Bok tlo249flNa kkI5GpY0BqegKDhJrH1anH+LqLwA8b 4e3P6060-29-45F56:35:28Formatt ing of this note might be different from the original.Problem: Intrapartum process (including labor pain)Goal: Absence of or reduction of complications of laborOutcome: Progressing as expectedGoal: Able to cope with painOutcome: Progressing as expectedGoal: Adequate to move to next level of careOutcome: Progressing as expectedGoal: Reduction in pain sensationOutcome: Progressing as expected 56407-1Cumi of care dsyzDN5791-57-72P36:35:30Plan of care noteTXT1.2.840.538986.1.13.104 .2.7.2.309987|[id number] lable for patient [id number] Davila RN[address]TXTX[address] [id number] 02-02-19T20:35:301.2.840.01003 0.1.72.3.15|1.2.840.251753.1.1 3.104.2.7.2.727879_[id number] Haley Adam RN [facility]"
--- NOTE | 2023-08-16 07:35 | ER ---
Nurse's Notes [facility] Name: Ev Valadez Age: 23 yrs Sex: Female : 2000 Arrival Date: 08/16/2023 Time: 03:22 Bed DX4 Private MD: Diagnosis: Other viral infections of unspecified site Presentation: 08/16 03:40 Chief complaint: Patient states: My ears have been hurting and my throat is hurting for jb4 the past 2 days. Coronavirus screen: At this time, the client does not indicate any symptoms associated with coronavirus-19. Ebola Screen: No symptoms or risks identified at this time. Initial Sepsis Screen: Does the patient meet any 2 criteria? No. Patient's initial sepsis screen is negative. Does the patient have a suspected source of infection? No. Patient's initial sepsis screen is negative. Risk Assessment: Do you want to hurt yourself or someone else? Patient reports no desire to harm self or others. Onset of symptoms was August 16, 2023. Transition of care: patient was not received from another setting of care. 03:40 Method Of Arrival: Ambulatory jb4 03:40 Acuity: SARA 4 jb4 Historical: - Allergies: 03:43 No Known Allergies; jb4 - PMHx: 03:43 Anxiety; Asthma; jb4 - PSHx: 03:43 (Asthma); jb4 - Immunization history:: Adult Immunizations up to date. - Social history:: Smoking status: Patient denies any tobacco usage or history of. Patient uses alcohol, occasionally. street drugs, marijuana. Screenin:49 [facility] ED Fall Risk Assessment (Adult) History of falling in the last 3 months, db including since admission No falls in past 3 months (0 pts) Score/Fall Risk Level 0 - 2 = Low Risk. Abuse screen: Denies threats or abuse. Denies injuries from another. Nutritional screening: No deficits noted. Tuberculosis screening: No symptoms or risk factors identified. Assessment: 04:00 General: Appears in no apparent distress. comfortable, Behavior is calm, cooperative, jb4 appropriate for age. Pain: Complains of pain in right ear and left ear, throat Pain does not radiate. Pain currently is 6 out of 10 on a pain scale. Neuro: Level of Consciousness is awake, alert, obeys commands, Oriented to person, place, time, situation. Cardiovascular: Patient's skin is warm and dry. Respiratory: Airway is patent Respiratory effort is even, unlabored, Respiratory pattern is regular, symmetrical. GI: No signs and/or symptoms were reported involving the gastrointestinal system. : No signs and/or symptoms were reported regarding the genitourinary system. EENT: Throat is clear with gag reflex present. Derm: No signs and/or symptoms reported regarding the dermatologic system. Musculoskeletal: Circulation, motion, and sensation intact. Range of motion: intact in all extremities. 05:00 Reassessment: Patient appears in no apparent distress at this time. Patient and/or jb4 family updated on plan of care and expected duration. Pain level reassessed. Patient is alert, oriented x 3, equal unlabored respirations, skin warm/dry/pink. 06:00 Reassessment: Patient appears in no apparent distress at this time. Patient and/or jb4 family updated on plan of care and expected duration. Pain level reassessed. Patient is alert, oriented x 3, equal unlabored respirations, skin warm/dry/pink. 07:49 Reassessment: Patient appears in no apparent distress at this time. Patient and/or db family updated on plan of care and expected duration. Pain level reassessed. Patient is alert, oriented x 3, equal unlabored respirations, skin warm/dry/pink. Respiratory: Airway is patent Respiratory effort is even, unlabored, Respiratory pattern is regular, symmetrical. Vital Signs: 03:40 BP 129 / 90; Pulse 80; Resp 16; Temp 98.8(TE); Pulse Ox 100% on R/A; Weight 56.7 kg jb4 (R); Height 5 ft. 0 in. ; Pain 6/10; 07:47 BP 131 / 80; Pulse 74; Resp 14; Temp 97.1; Pulse Ox 99% ; jg11 03:40 Body Mass Index 24.41 (56.70 kg, 152.4 cm) jb4 03:40 Pain Scale: Adult jb4 ED Course: 03:29 Patient arrived in ED. gm2 03:43 Triage completed. jb4 03:43 Arm band placed on right wrist. jb4 04:25 Josselin Gauthier is Attending Physician. ci 04:37 COVID-19 SARS RT PCR Sent. ty 04:37 Flu Sent. ty 04:37 Rapid Strep Sent. ty 05:14 Chest Single View XRAY In Process Unspecified. EDMS 07:49 Patient has correct armband on for positive identification. Provided Education on: db DISCHARGE. 07:49 No provider procedures requiring assistance completed. Patient did not have IV access db during this emergency room visit. Administered Medications: No medications were administered Medication: 07:49 VIS not applicable for this client. db Outcome: 07:35 Discharge ordered by MD. ci 07:49 Discharged to home ambulatory, db 07:49 Condition: stable 07:49 Discharge instructions given to patient, Instructed on discharge instructions, follow up and referral plans. Prescriptions given X 3, 07:50 Patient left the ED. db Signatures: Dispatcher [employer] EDMS Lyle Henson, RN RN jb4 Na Hawley RN RN db Iherudiunekwu, Orquidea Anne gm2 Kapil Valentino jg11 Reji Kimbrough ty
--- NOTE | 2023-08-16 07:36 | EDPHYS ---
Physician Documentation [facility] Name: Ev Valadez Age: 23 yrs Sex: Female : 2000 Arrival Date: 08/16/2023 Time: 03:22 Bed DX4 Private MD: ED Physician Josselin Gauthier HPI: 08/16 07:29 This 23 yrs old Black Female presents to ER via Ambulatory with complaints of Sore ci Throat, Ear Pain, Cough, Fever. 07:29 Patient is a 23-year-old female with PMH asthma, anxiety who presents to the ED with ci chief complaint of URI symptoms that began 4 days ago. She endorses sore throat, ear pain, cough, congestion, fever, no aggravating or relieving factors. . Historical: - Allergies: 03:43 No Known Allergies; jb4 - PMHx: 03:43 Anxiety; Asthma; jb4 - PSHx: 03:43 (Asthma); jb4 - Immunization history:: Adult Immunizations up to date. - Social history:: Smoking status: Patient denies any tobacco usage or history of. Patient uses alcohol, occasionally. street drugs, marijuana. ROS: 07:29 Constitutional: Positive for chills, fever, ci 07:29 ENT: Positive for ear pain, sinus congestion, sore throat, 07:29 Respiratory: Positive for cough, Exam: 07:29 Constitutional: This is a well developed, well nourished patient who is awake, alert, ci and in no acute distress. ENT: Nares patent. No nasal discharge, no septal abnormalities noted. Tympanic membranes are normal and external auditory canals are clear. Oropharynx with no redness, swelling, or masses, exudates, or evidence of obstruction, uvula midline. Mucous membranes moist. Cardiovascular: Regular rate and rhythm with a normal S1 and S2. No gallops, murmurs, or rubs. Normal PMI, no JVD. No pulse deficits. Respiratory: Lungs have equal breath sounds bilaterally, clear to auscultation and percussion. No rales, rhonchi or wheezes noted. No increased work of breathing, no retractions or nasal flaring. Vital Signs: 03:40 BP 129 / 90; Pulse 80; Resp 16; Temp 98.8(TE); Pulse Ox 100% on R/A; Weight 56.7 kg jb4 (R); Height 5 ft. 0 in. ; Pain 6/10; 07:47 BP 131 / 80; Pulse 74; Resp 14; Temp 97.1; Pulse Ox 99% ; jg11 03:40 Body Mass Index 24.41 (56.70 kg, 152.4 cm) jb4 03:40 Pain Scale: Adult jb4 MDM: 04:26 Patient medically screened. ci 07:29 Differential diagnosis: Allergic rhinitis, group A strep tonsillitis, influenza, ci laryngitis, viral syndrome. Data reviewed: vital signs, nurses notes. 08/16 04:25 Order name: Rapid Strep ci 08/16 04:25 Order name: COVID-19 SARS RT PCR; Complete Time: 07:32 ci 08/16 04:25 Order name: Flu; Complete Time: 07:32 ci 08/16 05:44 Order name: Throat Culture EDRI 08/16 04:25 Order name: Chest Single View XRAY ci 08/16 07:33 Interpretation: CXR shows no acute abnormality. ci Administered Medications: No medications were administered Disposition Summary: 08/16/23 07:35 Discharge Ordered Notes: Location: Home ci Problem: new ci Symptoms: are unchanged ci Condition: Stable ci Diagnosis - Other viral infections of unspecified site ci Followup: ci - With: Private Physician - When: 1 - 2 days - Reason: Recheck today's complaints, Re-evaluation by your physician Discharge Instructions: - Discharge Summary Sheet ci - Viral Respiratory Infection, [place] ci Forms: - Medication Reconciliation Form ci - Thank You Letter ci - Antibiotic Education ci - Prescription Opioid Use ci - Patient Portal Instructions ci - Leadership Thank You Letter ci Prescriptions: - albuterol sulfate 90 mcg/actuation Inhalation Aerosol Powder, Breath Activated - administer 2 inhalation INHALATION route every 4 to 6 hours as needed for ci shortness of breath or wheezing; 1 Each; Refills: 0, Product Selection Permitted - Tessalon Perles 100 mg Oral Capsule - take 1 capsule ORAL route every 8 hours As needed; 15 capsule; Refills: 0, ci Product Selection Permitted - Medrol (Wolf) 4 mg Oral Tablets, Dose Pack - take 1 tablet ORAL route as directed - follow package instructions; 1 packet; ci Refills: 0, Product Selection Permitted Signatures: Dispatcher [employer] EDLyle Vaz RN RN jb4 Iheonunekwu, Josselin de león
[2023-08-16 08:11] VITALS: BP 131/80; TEMP 97.1; O2SAT 99
--- NOTE | 2023-08-16 20:43 | RAD REPORT ---
EXAM DESCRIPTION: XR CHEST 1 VIEW CLINICAL HISTORY: COUGH COMPARISON: None. TECHNIQUE: XR CHEST 1 VIEW 08/16/2023 4:25 AM INSTRUMENT REPAIRER HELPER FINDINGS: Cardiac silhouette is normal in size. Lungs are clear without consolidation, atelectasis, mass or edema. There is no pleural effusion. There is no pneumothorax. There are no acute osseous fin dings. IMPRESSION: Clear lungs. Electronically signed by: Tom Toure MD 08/16/2023 06:12 AM INSTRUMENT REPAIRER HELPER Due to temporary technical issues with the PACS/Fluency reporting system, reports are being signed by the in house radiologists without review as a courtesy to insure prompt reporting. The interpreting radiologist is fully responsible for the content of the report.
== END ==
LOC: ER 03:22
DX: B34.8 Other viral infections of unspecified site (principal); Z11.52 Encounter for screening for COVID-19
CPT/HCPCS: 71045; 87070; 87081; 87635; 87804

== ENCOUNTER 2024-04-21 12:01 | Emergency (ER) | payer SELFPAY ==
--- OUTSIDE RECORDS SUMMARY | 2024-04-21 12:14 | XMS REPORT | Continuity of Care Document ---
Author Name Unknown Address [address] [facility] [address] [place] [address] [facility] [address] [facility] [address] [place] [address] Care Team Providers Care Docent Coordinator Name Role Phone GABI PALACIO Primary Care Physician Unav ailSHARON Kelley Attending Clinician Unavailable EMMA CORTES Attending Clinician Unavailable EMMA CORTES Attending Clinician Unavailable Gabi Reynoso Attending Clinician + Sharon Huddleston Attending Clinician [phone] NICOLE QUINTANILLA Attending Clinician Unavaila ble GABI PALACIO Attending Clinician Unavail able Gabi Reynoso Attending Clinician + Visit, [facility] Nurse Attending Clinician Unava ilLISA Fischer Attending Clinician Unavailable LISA CATES Attending Clinician Unavailable Lisa Cates MD Attending Clinician + [phone] CANDICE VASQUEZ Attending Clinician Unavailable Vira Callahan MD Attending Clinician [phone] Doctor Unassigned, [place] Attending Clinician U MARCELA Asher Attending Clinician Unavailable Rogelio Hess Attending Clinician + [phone] Marcela Cruz MD Attending Clinician [phone] Nicole Quintanilla CNM Attending Clinician [phone] 1, 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 HELPERAkanksha Jesus Attending Clinician [phone] Res-Colpo/Leep, [facility] Attending Clinician Un available Rui Gould MD Attending Clinician [phone] RUI GOULD Attending Clinician Unavailable LUZ MARIA ANGEL Attending Clinician UnavailLuz Maria Smith Attending Clinician [phone] Christian Ruiz MD Attending Clinician [phone] Chester Cates DO Attending Clinician [phone] Lab, [facility] Pob I Attending Clinician Unavailab Shira Owusu Attending Clinician [phone] Ultrasound, Ang-m Attending Clinician UnavailRichard Desai MD Attending Clinician +[phone] MARCELA CRUZ Admitting Clinician Unavailable LISA CATES Admitting Clinician Unavailable Lisa Cates MD Admitting Clinician + [phone] Marcela Cruz MD Admitting Clinician [phone] Payers Payer Name Policy Type Policy Number Effective Date Expirati on Date Source [facility] [employer] [id number] 2022 00:00:00 [place] [id number] 2020 00:00:00 MEDICAID PENDING PENDING 2020 00:00:00 Problems Condition Name Condition Details Condition Category Status Onset Date Resolution Date Last Treatment Date Treating Clinician Comments Source History of tubal ligation History of tubal ligation Disease Active 12-12 00:00: 00 [facility] History of asthma History of asthma Disease Active 03-11 00:00: 00 Overview: Formattin g of this note might be different from the original. Reports as a child not on meds, reports resolved [facility] care and examinatio n of lactating mother care and examinatio n of lactating mother Disease Resolve d 02-19 00:00: 00 2024-03-11 00:00:00 2024-03-11 14:23:07 [facility] Over weight Over weight Disease Resolve d 3-10 00:00: 00 2024-03-11 00:00:00 2024-03-11 14:23:05 [facility] 39 weeks gestation of 39 weeks gestation of Disease Resolve d 7-19 00:00: 00 2023-02-19 00:00:00 2023-02-19 10:14:37 [facility] Supervisio n of high-risk Supervisio n of high-risk Disease Resolve d 0 2-21 00:00: 00 2023-02-19 00:00:00 2023-02-19 10:14:51 [facility] Multiparit y Multiparit y Disease Resolve d 0 2-21 00:00: 00 2023-02-19 00:00:00 2023-02-19 10:14:48 [facility] History of section History of section Disease Resolve d 2022-0 2-21 00:00: 00 2023-02-19 00:00:00 2023-02-19 10:14:47 [facility] Desires (vaginal after ) trial Desires (vaginal after ) trial Disease Resolve d 2022-0 2-21 00:00: 00 2023-02-19 00:00:00 2023-02-19 10:14:46 [facility] examinatio n or test, positive result examinatio n or test, positive result Disease Resolve d 2022-0 2-15 00:00: 00 2022-09-03 00:00:00 2022-09-03 14:53:12 [facility] Other general counseling and advice for contracept kd management Other general counseling and advice for contracept kd management Disease Resolve d 1-06 00:00: 00 2022-09-03 00:00:00 2022-09-03 14:53:16 [facility] Chlamydia infection during Chlamydia infection during Disease Resolve d 9-28 00:00: 00 2020-11-17 00:00:00 2020-11-17 13:58:47 [facility] Routine follow-up Routine follow-up Disease Resolve d 2019-07 2-14 00:00: 00 2020-07-19 00:00:00 2020-07-19 11:18:32 [facility] Susceptibl e to varicella (non-immun e), currently Susceptibl e to varicella (non-immun e), currently Disease Resolve d 9-28 00:00: 00 2020-07-19 00:00:00 2020-07-19 11:18:34 [facility] S/P S/P Disease Resolve d 2019-07 1-23 00:00: 00 2020-06-26 00:00:00 2020-06-26 11:18:47 [facility] 39 weeks gestation of 39 weeks gestation of Disease Resolve d 2019-07 1-20 00:00: 00 2020-06-26 00:00:00 2020-06-26 11:18:38 [facility] Supervisio n of high-risk with insufficie nt care Supervisio n of high-risk with insufficie nt care Disease Resolve d 2019-0 9-25 00:00: 00 2020-06-26 00:00:00 2020-06-26 11:18:41 [facility] Risky sexual behavior Risky sexual behavior Disease Resolve d 03-11 00:00: 00 2020-05-19 00:00:00 2020-05-19 11:06:43 [facility] Screening for STD (sexually transmitte d disease) Screening for STD (sexually transmitte d disease) Disease Resolve d 03-11 00:00: 00 2020-04-07 00:00:00 2020-04-07 14:54:02 [facility] History of anxiety History of anxiety Disease Resolve d 03-11 00:00: 00 2015-03-11 00:00:00 2015-03-11 19:27:18 [facility] Allergies, Adverse Reactions, Alerts Allergy Name Allergy Type Status Severity Reaction(s) Onset Date Inactive Date Treating Clinician Comments Source NO KNOWN ALLERGIE S Drug Class Active [facility] Social History Social Habit Start Date Stop Date Quantity Comments Source ASSERTION 2022-05-15 00:00:00 [facility] History SDOH Alcohol Frequency [facility] History SDOH Alcohol Std Drinks [facility] History SDOH Alcohol Binge [facility] Gender identity [facility] Sexual orientation U [facility] History of Social function 2024-03-11 00:00:00 2024-03-11 00:00:00 [facility] Alcoholic beverage intake 2023-01-31 00:00:00 2023-01-31 00:00:00 Current drinker of alcohol (finding) [facility] Alcohol intake 2023-01-31 00:00:00 2023-01-31 00:00:00 Current drinker of alcohol (finding) [facility] Tobacco use and exposure 2023-01-29 00:00:00 2023-01-29 00:00:00 Smokeless tobacco non-user [facility] Exposure to SARS-CoV-2 (event) 2022-11-17 00:00:00 2022-11-27 15:16:00 Not sure [facility] Tobacco Comment 2022-08-28 00:00:00 2022-08-28 00:00:00 experimented with smoking at age 14 [facility] Alcohol Comment 2021-09-20 00:00:00 2021-09-20 00:00:00 socially [facility] Education 2020-06-02 00:00:00 2020-06-02 00:00:00 21 [facility] Sex assigned at 2000 00:00:00 2000 00:00:00 [facility] Smoking Status Start Date Stop Date Source Never smoked tobacco [facility] Medications Ordered Medication Name Filled Medication Name Start Date Stop Date Current Medication? Ordering Clinician Indication Dosage Frequency Signature (SIG) Comments Components Source metroNIDAZO LE 500 mg tablet 03-15 00:00: 00 Yes [id number] 500mg Take 1 tablet by mouth every 12 (twelve) hours. [facility] fluconazole 150 mg tablet 03-15 00:00: 00 03-16 04:59 :00 Yes [id number] 150mg Take 1 tablet by mouth once now for 1 dose. [facility] vitamin w/FA tablet 02-01 00:00: 00 03-11 00:00 :00 No [id number] 1{tbl} Take 1 tablet by mouth in the morning. [facility] docusate 100 mg capsule 02-01 00:00: 00 03-11 00:00 :00 No [id number] 200mg Take 2 capsules by mouth once daily as needed for Constipati on. [facility] ferrous sulfate 325 mg (65 mg iron) tablet 02-01 00:00: 00 03-11 00:00 :00 No [id number] 325mg Take 1 tablet by mouth in the morning. [facility] ibuprofen 600 mg tablet 02-01 00:00: 00 03-11 00:00 :00 No [id number] 600mg Take 1 tablet by mouth every 6 (six) hours as needed (Pain). Take with food or milk. [facility] HYDROcodone -acetaminop hen 5-325 mg tablet 02-01 00:00: 00 03-11 00:00 :00 No [id number] 1{tbl} Take 1 tablet by mouth every 6 (six) hours as needed (Pain scale above 4) for up to 10 doses. Do not exceed 3 grams of acetaminop hen in 24 hours. Indication s: acute pain [facility] lactated ringers IV infusion 1,000 mL 01-30 09:30: 00 01-30 06:30 :00 No 1000mL at 125 mL/hr, 1,000 mL, IV Infusion, ONCE, 1 dose, On Fri01/30/23 at 0430, Routine [facility] rho(D) immune globulin (RHOGAM) syringe 300 mcg 01-30 09:23: 20 Yes 300ug 300 mcg, Intramuscu lar, ONCE, For 1 dose, Conditiona l, Routine [facility] HYDROcodone -acetaminop hen (NORCO 5) 5-325 mg tablet 2 tablet 01-30 09:23: 15 Yes 2{tbl} 2 tablet, Oral, Q6HPRN, Starting on Fri01/30/23 at 0423, Until Discontinu ed, Routine, Pain (scale 7-10), Alternate with Ibuprofen [facility] HYDROcodone -acetaminop hen (NORCO 5) 5-325 mg tablet 1 tablet 01-30 09:23: 15 Yes 1{tbl} 1 tablet, Oral, Q6HPRN, Starting on Fri01/30/23 at 0423, Until Discontinu ed, Routine, Pain (scale 4-6), Alternate with Ibuprofen [facility] ibuprofen (IBU) tablet 600 mg 01-30 09:23: 15 Yes 600mg 600 mg, Oral, Q6HPRN, Starting on Fri01/30/23 at 042, Until Discontinu ed, Routine, Pain (scale 1-3) [facility] diphenhydrA MINE (BENADRYL) injection 25 mg 01-30 09:23: 15 Yes 25mg 25 mg, Slow IV Push, Q6HPRN, Starting on Fri01/30/23 at 0423, Until Discontinu ed, Routine, Itching [facility] diphenhydrA MINE (BENADRYL) tablet 25 mg 01-30 09:23: 15 Yes 25mg 25 mg, Oral, Q6HPRN, Starting on Fri01/30/23 at 422, Until Discontinu ed, Routine, Sleep, Itching [facility] ondansetron (ZOFRAN (PF)) injection 4 mg 01-30 09:23: 15 Yes 4mg 4 mg, Slow IV Push, Q8HPRN, Starting on Fri01/30/23 at 422, Until Discontinu ed, Routine, Nausea and Vomiting (N/V) [facility] bisacodyL (DULCOLAX) suppository 10 mg 01-30 09:23: 15 Yes 10mg 10 mg, Rectal, QDAILYPRN, Starting on Fri01/30/23 at 422, Until Discontinu ed, Routine, Constipati on [facility] simethicone (GAS RELIEF (SIMETHICON E)) chewable tablet 160 mg 01-30 09:23: 15 Yes 160mg 160 mg, Oral, PC+HSPRN, Starting on Fri01/30/23 at 422, Until Discontinu ed, Routine, Gas [facility] docusate (COLACE) capsule 200 mg 01-30 09:23: 15 Yes 200mg 200 mg, Oral, QDAILYPRN, Starting on Fri01/30/23 at 422, Until Discontinu ed, Routine, Constipati on [facility] magnesium hydroxide (MILK OF MAGNESIA) 400 mg/5 mL suspension 30 mL 01-30 09:23: 15 Yes 30mL 30 mL, Oral, QDAILYPRN, Starting on Fri01/30/23 at 422, Until Discontinu ed, Routine, Constipati on [facility] lactated ringers IV infusion 1,000 mL 01-30 09:23: 15 Yes 1000mL at 125 mL/hr, 1,000 mL, IV Infusion, PRN, 1 dose, Starting on Fri01/30/23 at 0423, Until Discontinu ed, Routine [facility] lactated ringers IV infusion 1,000 mL 01-30 04:30: 00 01-30 09:23 :19 No 1000mL at 125 mL/hr, 1,000 mL, IV Infusion, CONTINUOUS , Starting on Fri01/29/23 at 2330, Until Stephani 01/30/23 at 0423, IVAN [facility] ketorolac (TORADOL) injection 30 mg 01-30 02:41: 35 01-30 05:00 :00 No 30mg 30 mg, Slow IV Push, PRN, 1 dose, Starting on Fri01/29/23 at 2141, Until Fri01/31/23 at 2359, Routine, Pain (scale 4-6) [facility] morpHINE (4 mg/mL) injection 4 mg 01-30 01:15: 00 01-30 00:28 :00 No 4mg 4 mg, Slow IV Push, ONCE, 1 dose, On Fri01/29/23 at 2015, Routine [facility] sodium citrate-cit nancy acid (BICITRA) 500-334 mg/5 mL solution 30 mL 01-30 01:05: 42 01-30 02:03 :00 No 30mL 30 mL, Oral, PRE-PROCED URE ONCE, 1 dose, Starting on Fri01/29/23 at 2004, Until Fri01/29/23 at 2103, Routine, Surgery [facility] ceFAZolin (ANCEF) 2,000 mg in NaCl 0.9% (NS) 100 mL MINI-BAG 01-30 01:05: 05 01-30 02:33 :00 No 2000mg 2,000 mg, IV Piggyback, O.R. HOLDING ONCE, 1 dose, Starting on Fri01/29/23 at 2004, Until Fri01/29/23 at 235, Administer over 30 Minutes, 100 mL
Reas on for Anti-Infec tive: Surgical Prophylaxi s
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
Duration of therapy: within 24 hours of surgery [facility] D5W-LR IV infusion 1,000 mL 01-29 14:16: 02 01-30 09:23 :18 No 1000mL at 1-125 mL/hr, IV Infusion, TITRATE, Starting on Fri01/29/23 at 0916, Until Stephani 01/30/23 at 0423, Routine [facility] D5W 0.9% NaCl (NS) IV infusion 1,000 mL 12-19 03:00: 00 Yes 1000mL at 1,000 mL/hr, 1,000 mL, IV Infusion, CONTINUOUS , Starting on Fri12/18/22 at 2200, Until Discontinu ed, Routine [facility] ondansetron (ZOFRAN (PF)) injection 4 mg 12-19 01:45: 00 12-19 01:41 :00 No 4mg 4 mg, Slow IV Push, ONCE, On Fri12/18/22 at 2045, For 1 dose
Do ses of ondansetro n 16 mg and above need to be administer ed via IV piggyback. For Dose >=24mg ECG monitoring is advisable.
[facility] NaCl 0.9% (NS) bolus infusion 1,000 mL 12-19 01:45: 00 12-19 01:27 :12 No 1000mL at 999 mL/hr, 1,000 mL, IV Infusion, ONCE, 1 dose, On Fri12/18/22 at 2045, STAT [facility] woj37-artv- folic acid 29 mg iron- 1 mg per tablet 09-03 00:00: 00 Yes [id number] 1{tbl} Take 1 tablet by mouth in the morning. [facility] npc70-orkt- folic acid 29 mg iron- 1 mg per tablet 09-03 00:00: 00 02-01 00:00 :00 No [id number] 1{tbl} Take 1 tablet by mouth in the morning. [facility] ibuprofen 800 mg tablet 2021-07- 00:00: 00 09-03 00:00 :00 No [id number] 800mg Take 1 tablet by mouth every 8 (eight) hours as needed for Pain (scale 4-6). [facility] ciprofloxac in-dexameth asone (CIPRODEX) 0.3-0.1 % otic drops 2021-07-12 00:00: 00 05-31 05:59 :00 No [id number] 23326 4[drp] Place 4 Drops in left ear in the morning and 4 Drops in the evening. Do all this for 5 days. [facility] medroxyPROG ESTERone (DEPO-PROVE RA) injection 150 mg 310 15:45: 00 08-22 15:44 :00 No [id number] 150mg [facility] Immunizations Ordered Immunization Name Filled Immunization Name Date Status Comments Source TDAP 2022-11-13 00:00:00 Completed [facility] TDAP 2022-11-13 00:00:00 Completed [facility] TDAP 2022-11-13 00:00:00 Completed [facility] TDAP 2022-11-13 00:00:00 Completed [facility] TDAP 2022-11-13 00:00:00 Completed [facility] TDAP 2022-11-13 00:00:00 Completed [facility] TDAP 2022-11-13 00:00:00 Completed [facility] TDAP 2022-11-13 00:00:00 Completed [facility] TDAP 2022-11-13 00:00:00 Completed [facility] TDAP 2022-11-13 00:00:00 Completed [facility] TDAP 2022-11-13 00:00:00 Completed [facility] TDAP 2022-11-13 00:00:00 Completed [facility] TDAP 2022-11-13 00:00:00 Completed [facility] TDAP 2022-11-13 00:00:00 Completed [facility] TDAP 2022-11-13 00:00:00 Completed [facility] TDAP 2022-11-13 00:00:00 Completed [facility] TDAP 2022-11-13 00:00:00 Completed [facility] TDAP 2022-11-13 00:00:00 Completed [facility] TDAP 2022-11-13 00:00:00 Completed HPV9 2020-06-04 00:00:00 Completed [facility] Varicella (varivax)(chicken pox) 2020-06-04 00:00:00 Completed [facility] HPV9 2020-06-04 00:00:00 Completed [facility] Varicella (varivax)(chicken pox) 2020-06-04 00:00:00 Completed [facility] HPV9 2020-06-04 00:00:00 Completed [facility] Varicella (varivax)(chicken pox) 2020-06-04 00:00:00 Completed [facility] HPV9 2020-06-04 00:00:00 Completed [facility] Varicella (varivax)(chicken pox) 2020-06-04 00:00:00 Completed [facility] HPV9 2020-06-04 00:00:00 Completed [facility] Varicella (varivax)(chicken pox) 2020-06-04 00:00:00 Completed [facility] HPV9 2020-06-04 00:00:00 Completed [facility] Varicella (varivax)(chicken pox) 2020-06-04 00:00:00 Completed [facility] HPV9 2020-06-04 00:00:00 Completed [facility] Varicella (varivax)(chicken pox) 2020-06-04 00:00:00 Completed [facility] HPV9 2020-06-04 00:00:00 Completed [facility] Varicella (varivax)(chicken pox) 2020-06-04 00:00:00 Completed [facility] HPV9 2020-06-04 00:00:00 Completed [facility] Varicella (varivax)(chicken pox) 2020-06-04 00:00:00 Completed [facility] HPV9 2020-06-04 00:00:00 Completed [facility] Varicella (varivax)(chicken pox) 2020-06-04 00:00:00 Completed [facility] HPV9 2020-06-04 00:00:00 Completed [facility] Varicella (varivax)(chicken pox) 2020-06-04 00:00:00 Completed [facility] HPV9 2020-06-04 00:00:00 Completed [facility] Varicella (varivax)(chicken pox) 2020-06-04 00:00:00 Completed [facility] HPV9 2020-06-04 00:00:00 Completed [facility] Varicella (varivax)(chicken pox) 2020-06-04 00:00:00 Completed [facility] HPV9 2020-06-04 00:00:00 Completed [facility] Varicella (varivax)(chicken pox) 2020-06-04 00:00:00 Completed [facility] HPV9 2020-06-04 00:00:00 Completed [facility] Varicella (varivax)(chicken pox) 2020-06-04 00:00:00 Completed [facility] HPV9 2020-06-04 00:00:00 Completed [facility] Varicella (varivax)(chicken pox) 2020-06-04 00:00:00 Completed [facility] HPV9 2020-06-04 00:00:00 Completed [facility] Varicella (varivax)(chicken pox) 2020-06-04 00:00:00 Completed [facility] HPV9 2020-06-04 00:00:00 Completed [facility] Varicella (varivax)(chicken pox) 2020-06-04 00:00:00 Completed [facility] HPV9 2020-06-04 00:00:00 Completed [facility] Varicella (varivax)(chicken pox) 2020-06-04 00:00:00 Completed [facility] HPV9 2020-06-04 00:00:00 Completed [facility] Varicella (varivax)(chicken pox) 2020-06-04 00:00:00 Completed [facility] HPV9 2020-06-04 00:00:00 Completed [facility] Varicella (varivax)(chicken pox) 2020-06-04 00:00:00 Completed [facility] HPV9 2020-06-04 00:00:00 Completed [facility] Varicella (varivax)(chicken pox) 2020-06-04 00:00:00 Completed [facility] HPV9 2020-06-04 00:00:00 Completed [facility] Varicella (varivax)(chicken pox) 2020-06-04 00:00:00 Completed [facility] HPV9 2020-06-04 00:00:00 Completed [facility] Varicella (varivax)(chicken pox) 2020-06-04 00:00:00 Completed [facility] HPV9 2020-06-04 00:00:00 Completed [facility] Varicella (varivax)(chicken pox) 2020-06-04 00:00:00 Completed [facility] HPV9 2020-06-04 00:00:00 Completed [facility] Varicella (varivax)(chicken pox) 2020-06-04 00:00:00 Completed [facility] HPV9 2020-06-04 00:00:00 Completed [facility] Varicella (varivax)(chicken pox) 2020-06-04 00:00:00 Completed [facility] HPV9 2020-06-04 00:00:00 Completed [facility] Varicella (varivax)(chicken pox) 2020-06-04 00:00:00 Completed [facility] HPV9 2020-06-04 00:00:00 Completed [facility] Varicella (varivax)(chicken pox) 2020-06-04 00:00:00 Completed [facility] HPV9 2020-06-04 00:00:00 Completed [facility] Varicella (varivax)(chicken pox) 2020-06-04 00:00:00 Completed [facility] HPV9 2020-06-04 00:00:00 Completed [facility] Varicella (varivax)(chicken pox) 2020-06-04 00:00:00 Completed [facility] HPV9 2020-06-04 00:00:00 Completed [facility] Varicella (varivax)(chicken pox) 2020-06-04 00:00:00 Completed Influenza Virus Vaccine Quad .5 mL IM 6+ MO 2020-04-21 00:00:00 Completed [facility] Influenza Virus Vaccine Quad .5 mL IM 6+ MO 2020-04-21 00:00:00 Completed [facility] Influenza Virus Vaccine Quad .5 mL IM 6+ MO 2020-04-21 00:00:00 Completed [facility] Influenza Virus Vaccine Quad .5 mL IM 6+ MO 2020-04-21 00:00:00 Completed [facility] Influenza Virus Vaccine Quad .5 mL IM 6+ MO 2020-04-21 00:00:00 Completed [facility] Influenza Virus Vaccine Quad .5 mL IM 6+ MO 2020-04-21 00:00:00 Completed [facility] Influenza Virus Vaccine Quad .5 mL IM 6+ MO 2020-04-21 00:00:00 Completed [facility] Influenza Virus Vaccine Quad .5 mL IM 6+ MO 2020-04-21 00:00:00 Completed [facility] Influenza Virus Vaccine Quad .5 mL IM 6+ MO 2020-04-21 00:00:00 Completed [facility] Influenza Virus Vaccine Quad .5 mL IM 6+ MO 2020-04-21 00:00:00 Completed [facility] Influenza Virus Vaccine Quad .5 mL IM 6+ MO 2020-04-21 00:00:00 Completed [facility] Influenza Virus Vaccine Quad .5 mL IM 6+ MO 2020-04-21 00:00:00 Completed [facility] Influenza Virus Vaccine Quad .5 mL IM 6+ MO 2020-04-21 00:00:00 Completed [facility] Influenza Virus Vaccine Quad .5 mL IM 6+ MO 2020-04-21 00:00:00 Completed [facility] Influenza Virus Vaccine Quad .5 mL IM + MO 2020-04-21 00:00:00 Completed [facility] Influenza Virus Vaccine Quad .5 mL IM 6+ MO 2020-04-21 00:00:00 Completed [facility] Influenza Virus Vaccine Quad .5 mL IM 6+ MO 2020-04-21 00:00:00 Completed [facility] Influenza Virus Vaccine Quad .5 mL IM 6+ MO 2020-04-21 00:00:00 Completed [facility] Influenza Virus Vaccine Quad .5 mL IM 6+ MO 2020-04-21 00:00:00 Completed [facility] Influenza Virus Vaccine Quad .5 mL IM 6+ MO 2020-04-21 00:00:00 Completed [facility] Influenza Virus Vaccine Quad .5 mL IM 6+ MO 2020-04-21 00:00:00 Completed [facility] Influenza Virus Vaccine Quad .5 mL IM 6+ MO 2020-04-21 00:00:00 Completed [facility] Influenza Virus Vaccine Quad .5 mL IM 6+ MO 2020-04-21 00:00:00 Completed [facility] Influenza Virus Vaccine Quad .5 mL IM 6+ MO 2020-04-21 00:00:00 Completed [facility] Influenza Virus Vaccine Quad .5 mL IM 6+ MO 2020-04-21 00:00:00 Completed [facility] Influenza Virus Vaccine Quad .5 mL IM 6+ MO 2020-04-21 00:00:00 Completed [facility] Influenza Virus Vaccine Quad .5 mL IM 6+ MO 2020-04-21 00:00:00 Completed [facility] Influenza Virus Vaccine Quad .5 mL IM 6+ MO 2020-04-21 00:00:00 Completed [facility] Influenza Virus Vaccine Quad .5 mL IM 6+ MO 2020-04-21 00:00:00 Completed [facility] Influenza Virus Vaccine Quad .5 mL IM 6+ MO 2020-04-21 00:00:00 Completed [facility] Influenza Virus Vaccine Quad .5 mL IM 6+ MO 2020-04-21 00:00:00 Completed [facility] Influenza Virus Vaccine Quad .5 mL IM 6+ MO (FLUZONE/FLULAVAL/FL UARIX) 2020-04-21 00:00:00 Completed [facility] TDAP 2020-04-07 00:00:00 Completed [facility] TDAP 2020-04-07 00:00:00 Completed [facility] TDAP 2020-04-07 00:00:00 Completed [facility] TDAP 2020-04-07 00:00:00 Completed [facility] TDAP 2020-04-07 00:00:00 Completed [facility] TDAP 2020-04-07 00:00:00 Completed [facility] TDAP 2020-04-07 00:00:00 Completed [facility] TDAP 2020-04-07 00:00:00 Completed [facility] TDAP 2020-04-07 00:00:00 Completed [facility] TDAP 2020-04-07 00:00:00 Completed [facility] TDAP 2020-04-07 00:00:00 Completed [facility] TDAP 2020-04-07 00:00:00 Completed [facility] TDAP 2020-04-07 00:00:00 Completed [facility] TDAP 2020-04-07 00:00:00 Completed [facility] TDAP 2020-04-07 00:00:00 Completed [facility] TDAP 2020-04-07 00:00:00 Completed [facility] TDAP 2020-04-07 00:00:00 Completed [facility] TDAP 2020-04-07 00:00:00 Completed [facility] TDAP 2020-04-07 00:00:00 Completed [facility] TDAP 2020-04-07 00:00:00 Completed [facility] TDAP 2020-04-07 00:00:00 Completed [facility] TDAP 2020-04-07 00:00:00 Completed [facility] TDAP 2020-04-07 00:00:00 Completed [facility] TDAP 2020-04-07 00:00:00 Completed [facility] TDAP 2020-04-07 00:00:00 Completed [facility] TDAP 2020-04-07 00:00:00 Completed [facility] TDAP 2020-04-07 00:00:00 Completed [facility] TDAP 2020-04-07 00:00:00 Completed [facility] TDAP 2020-04-07 00:00:00 Completed [facility] TDAP 2020-04-07 00:00:00 Completed [facility] TDAP 2020-04-07 00:00:00 Completed [facility] TDAP 2020-04-07 00:00:00 Completed [facility] Hepatitis A Adult 2018-03-20 00:00:00 Completed [facility] HPV9 2018-03-20 00:00:00 Completed [facility] MCV4,NOS 2018-03-20 00:00:00 Completed [facility] Hepatitis A Adult 2018-03-20 00:00:00 Completed [facility] HPV9 2018-03-20 00:00:00 Completed [facility] MCV4,NOS 2018-03-20 00:00:00 Completed [facility] Hepatitis A Adult 2018-03-20 00:00:00 Completed [facility] HPV9 2018-03-20 00:00:00 Completed [facility] MCV4,NOS 2018-03-20 00:00:00 Completed [facility] Hepatitis A Adult 2018-03-20 00:00:00 Completed [facility] HPV9 2018-03-20 00:00:00 Completed [facility] MCV4,NOS 2018-03-20 00:00:00 Completed [facility] Hepatitis A Adult 2018-03-20 00:00:00 Completed [facility] HPV9 2018-03-20 00:00:00 Completed [facility] MCV4,NOS 2018-03-20 00:00:00 Completed [facility] Hepatitis A Adult 2018-03-20 00:00:00 Completed [facility] 2018-03-20 00:00:00 Completed [facility] MCV4,NOS 2018-03-20 00:00:00 Completed [facility] Hepatitis A Adult 2018-03-20 00:00:00 Completed [facility]9 2018-03-20 00:00:00 Completed [facility] MCV4,NOS 2018-03-20 00:00:00 Completed [facility] Hepatitis A Adult 2018-03-20 00:00:00 Completed [facility] 2018-03-20 00:00:00 Completed [facility] MCV4,NOS 2018-03-20 00:00:00 Completed [facility] Hepatitis A Adult 2018-03-20 00:00:00 Completed [facility] HPV9 2018-03-20 00:00:00 Completed [facility] MCV4,NOS 2018-03-20 00:00:00 Completed [facility] Hepatitis A Adult 2018-03-20 00:00:00 Completed [facility] HPV9 2018-03-20 00:00:00 Completed [facility] MCV4,NOS 2018-03-20 00:00:00 Completed [facility] Hepatitis A Adult 2018-03-20 00:00:00 Completed [facility] HPV9 2018-03-20 00:00:00 Completed [facility] MCV4,NOS 2018-03-20 00:00:00 Completed [facility] Hepatitis A Adult 2018-03-20 00:00:00 Completed [facility] 2018-03-20 00:00:00 Completed [facility] MCV4,NOS 2018-03-20 00:00:00 Completed [facility] Hepatitis A Adult 2018-03-20 00:00:00 Completed [facility] HPV9 2018-03-20 00:00:00 Completed [facility] MCV4,NOS 2018-03-20 00:00:00 Completed [facility] Hepatitis A Adult 2018-03-20 00:00:00 Completed [facility] 2018-03-20 00:00:00 Completed [facility] MCV4,NOS 2018-03-20 00:00:00 Completed [facility] Hepatitis A Adult 2018-03-20 00:00:00 Completed [facility] 2018-03-20 00:00:00 Completed [facility] MCV4,NOS 2018-03-20 00:00:00 Completed [facility] Hepatitis A Adult 2018-03-20 00:00:00 Completed [facility] 2018-03-20 00:00:00 Completed [facility] MCV4,NOS 2018-03-20 00:00:00 Completed [facility] Hepatitis A Adult 2018-03-20 00:00:00 Completed [facility] 2018-03-20 00:00:00 Completed [facility] MCV4,NOS 2018-03-20 00:00:00 Completed [facility] Hepatitis A Adult 2018-03-20 00:00:00 Completed [facility] 2018-03-20 00:00:00 Completed [facility] MCV4,NOS 2018-03-20 00:00:00 Completed [facility] Hepatitis A Adult 2018-03-20 00:00:00 Completed [facility] 2018-03-20 00:00:00 Completed [facility] MCV4,NOS 2018-03-20 00:00:00 Completed [facility] Hepatitis A Adult 2018-03-20 00:00:00 Completed [facility] HPV9 2018-03-20 00:00:00 Completed [facility] MCV4,NOS 2018-03-20 00:00:00 Completed [facility] Hepatitis A Adult 2018-03-20 00:00:00 Completed [facility] HPV9 2018-03-20 00:00:00 Completed [facility] MCV4,NOS 2018-03-20 00:00:00 Completed [facility] Hepatitis A Adult 2018-03-20 00:00:00 Completed [facility] HPV9 2018-03-20 00:00:00 Completed [facility] MCV4,NOS 2018-03-20 00:00:00 Completed [facility] Hepatitis A Adult 2018-03-20 00:00:00 Completed [facility] 2018-03-20 00:00:00 Completed [facility] MCV4,NOS 2018-03-20 00:00:00 Completed [facility] Hepatitis A Adult 2018-03-20 00:00:00 Completed [facility] HPV9 2018-03-20 00:00:00 Completed [facility] MCV4,NOS 2018-03-20 00:00:00 Completed [facility] Hepatitis A Adult 2018-03-20 00:00:00 Completed [facility] 2018-03-20 00:00:00 Completed [facility] MCV4,NOS 2018-03-20 00:00:00 Completed [facility] Hepatitis A Adult 2018-03-20 00:00:00 Completed [facility] HPV9 2018-03-20 00:00:00 Completed [facility] MCV4,NOS 2018-03-20 00:00:00 Completed [facility] Hepatitis A Adult 2018-03-20 00:00:00 Completed HPV9 2018-03-20 00:00:00 Completed MCV4,NOS 2018-03-20 00:00:00 Completed Meningococcal Polysaccharide (groups A, C, Y and W-135) conjugate vaccine (MCV4P) 2012-03-10 00:00:00 Completed [facility] HEPATITIS A 2012-03-10 00:00:00 Completed [facility] HPV 2012-03-10 00:00:00 Completed [facility] Meningococcal Vaccine 2012-03-10 00:00:00 Completed [facility] TDAP 2012-03-10 00:00:00 Completed [facility] Varicella (varivax)(chicken pox) 2012-03-10 00:00:00 Completed [facility] Meningococcal Polysaccharide (groups A, C, Y and W-135) conjugate vaccine (MCV4P) 2012-03-10 00:00:00 Completed [facility] HEPATITIS A 2012-03-10 00:00:00 Completed [facility] HPV 2012-03-10 00:00:00 Completed [facility] Meningococcal Vaccine 2012-03-10 00:00:00 Completed [facility] TDAP 2012-03-10 00:00:00 Completed [facility] Varicella (varivax)(chicken pox) 2012-03-10 00:00:00 Completed [facility] Meningococcal Polysaccharide (groups A, C, Y and W-135) conjugate vaccine (MCV4P) 2012-03-10 00:00:00 Completed [facility] HEPATITIS A 2012-03-10 00:00:00 Completed [facility] HPV 2012-03-10 00:00:00 Completed [facility] Meningococcal Vaccine 2012-03-10 00:00:00 Completed [facility] TDAP 2012-03-10 00:00:00 Completed [facility] Varicella (varivax)(chicken pox) 2012-03-10 00:00:00 Completed [facility] Meningococcal Polysaccharide (groups A, C, Y and W-135) conjugate vaccine (MCV4P) 2012-03-10 00:00:00 Completed [facility] HEPATITIS A 2012-03-10 00:00:00 Completed [facility] HPV 2012-03-10 00:00:00 Completed [facility] Meningococcal Vaccine 2012-03-10 00:00:00 Completed [facility] TDAP 2012-03-10 00:00:00 Completed [facility] Varicella (varivax)(chicken pox) 2012-03-10 00:00:00 Completed [facility] Meningococcal Polysaccharide (groups A, C, Y and W-135) conjugate vaccine (MCV4P) 2012-03-10 00:00:00 Completed [facility] HEPATITIS A 2012-03-10 00:00:00 Completed [facility] HPV 2012-03-10 00:00:00 Completed [facility] Meningococcal Vaccine 2012-03-10 00:00:00 Completed [facility] TDAP 2012-03-10 00:00:00 Completed [facility] Varicella (varivax)(chicken pox) 2012-03-10 00:00:00 Completed [facility] Meningococcal Polysaccharide (groups A, C, Y and W-135) conjugate vaccine (MCV4P) 2012-03-10 00:00:00 Completed [facility] HEPATITIS A 2012-03-10 00:00:00 Completed [facility] HPV 2012-03-10 00:00:00 Completed [facility] Meningococcal Vaccine 2012-03-10 00:00:00 Completed [facility] TDAP 2012-03-10 00:00:00 Completed [facility] Varicella (varivax)(chicken pox) 2012-03-10 00:00:00 Completed [facility] Meningococcal Polysaccharide (groups A, C, Y and W-135) conjugate vaccine (MCV4P) 2012-03-10 00:00:00 Completed [facility] HEPATITIS A 2012-03-10 00:00:00 Completed [facility] HPV 2012-03-10 00:00:00 Completed [facility] Meningococcal Vaccine 2012-03-10 00:00:00 Completed [facility] TDAP 2012-03-10 00:00:00 Completed [facility] Varicella (varivax)(chicken pox) 2012-03-10 00:00:00 Completed [facility] Meningococcal Polysaccharide (groups A, C, Y and W-135) conjugate vaccine (MCV4P) 2012-03-10 00:00:00 Completed [facility] HEPATITIS A 2012-03-10 00:00:00 Completed [facility] HPV 2012-03-10 00:00:00 Completed [facility] Meningococcal Vaccine 2012-03-10 00:00:00 Completed [facility] TDAP 2012-03-10 00:00:00 Completed [facility] Varicella (varivax)(chicken pox) 2012-03-10 00:00:00 Completed [facility] Meningococcal Polysaccharide (groups A, C, Y and W-135) conjugate vaccine (MCV4P) 2012-03-10 00:00:00 Completed [facility] HEPATITIS A 2012-03-10 00:00:00 Completed [facility] HPV 2012-03-10 00:00:00 Completed [facility] Meningococcal Vaccine 2012-03-10 00:00:00 Completed [facility] TDAP 2012-03-10 00:00:00 Completed [facility] Varicella (varivax)(chicken pox) 2012-03-10 00:00:00 Completed [facility] Meningococcal Polysaccharide (groups A, C, Y and W-135) conjugate vaccine (MCV4P) 2012-03-10 00:00:00 Completed [facility] HEPATITIS A 2012-03-10 00:00:00 Completed [facility] HPV 2012-03-10 00:00:00 Completed [facility] Meningococcal Vaccine 2012-03-10 00:00:00 Completed [facility] TDAP 2012-03-10 00:00:00 Completed [facility] Varicella (varivax)(chicken pox) 2012-03-10 00:00:00 Completed [facility] Meningococcal Polysaccharide (groups A, C, Y and W-135) conjugate vaccine (MCV4P) 2012-03-10 00:00:00 Completed [facility] HEPATITIS A 2012-03-10 00:00:00 Completed [facility] HPV 2012-03-10 00:00:00 Completed [facility] Meningococcal Vaccine 2012-03-10 00:00:00 Completed [facility] TDAP 2012-03-10 00:00:00 Completed [facility] Varicella (varivax)(chicken pox) 2012-03-10 00:00:00 Completed [facility] Meningococcal Polysaccharide (groups A, C, Y and W-135) conjugate vaccine (MCV4P) 2012-03-10 00:00:00 Completed [facility] HEPATITIS A 2012-03-10 00:00:00 Completed [facility] HPV 2012-03-10 00:00:00 Completed [facility] Meningococcal Vaccine 2012-03-10 00:00:00 Completed [facility] TDAP 2012-03-10 00:00:00 Completed [facility] Varicella (varivax)(chicken pox) 2012-03-10 00:00:00 Completed [facility] Meningococcal Polysaccharide (groups A, C, Y and W-135) conjugate vaccine (MCV4P) 2012-03-10 00:00:00 Completed [facility] HEPATITIS A 2012-03-10 00:00:00 Completed [facility] HPV 2012-03-10 00:00:00 Completed [facility] Meningococcal Vaccine 2012-03-10 00:00:00 Completed [facility] TDAP 2012-03-10 00:00:00 Completed [facility] Varicella (varivax)(chicken pox) 2012-03-10 00:00:00 Completed [facility] Meningococcal Polysaccharide (groups A, C, Y and W-135) conjugate vaccine (MCV4P) 2012-03-10 00:00:00 Completed [facility] HEPATITIS A 2012-03-10 00:00:00 Completed [facility] HPV 2012-03-10 00:00:00 Completed [facility] Meningococcal Vaccine 2012-03-10 00:00:00 Completed [facility] TDAP 2012-03-10 00:00:00 Completed [facility] Varicella (varivax)(chicken pox) 2012-03-10 00:00:00 Completed [facility] Meningococcal Polysaccharide (groups A, C, Y and W-135) conjugate vaccine (MCV4P) 2012-03-10 00:00:00 Completed [facility] HEPATITIS A 2012-03-10 00:00:00 Completed [facility] HPV 2012-03-10 00:00:00 Completed [facility] Meningococcal Vaccine 2012-03-10 00:00:00 Completed [facility] TDAP 2012-03-10 00:00:00 Completed [facility] Varicella (varivax)(chicken pox) 2012-03-10 00:00:00 Completed [facility] Meningococcal Polysaccharide (groups A, C, Y and W-135) conjugate vaccine (MCV4P) 2012-03-10 00:00:00 Completed [facility] HEPATITIS A 2012-03-10 00:00:00 Completed [facility] HPV 2012-03-10 00:00:00 Completed [facility] Meningococcal Vaccine 2012-03-10 00:00:00 Completed [facility] TDAP 2012-03-10 00:00:00 Completed [facility] Varicella (varivax)(chicken pox) 2012-03-10 00:00:00 Completed [facility] Meningococcal Polysaccharide (groups A, C, Y and W-135) conjugate vaccine (MCV4P) 2012-03-10 00:00:00 Completed [facility] HEPATITIS A 2012-03-10 00:00:00 Completed [facility] HPV 2012-03-10 00:00:[facility] [facility] Meningococcal Vaccine 2012-03-10 00:00:00 Completed [facility] TDAP 2012-03-10 00:00:00 Completed [facility] Varicella (varivax)(chicken pox) 2012-03-10 00:00:00 Completed [facility] Meningococcal Polysaccharide (groups A, C, Y and W-135) conjugate vaccine (MCV4P) 2012-03-10 00:00:00 Completed [facility] HEPATITIS A 2012-03-10 00:00:00 Completed [facility] HPV 2012-03-10 00:00:00 Completed [facility] Meningococcal Vaccine 2012-03-10 00:00:00 Completed [facility] TDAP 2012-03-10 00:00:00 Completed [facility] Varicella (varivax)(chicken pox) 2012-03-10 00:00:00 Completed [facility] Meningococcal Polysaccharide (groups A, C, Y and W-135) conjugate vaccine (MCV4P) 2012-03-10 00:00:00 Completed [facility] HEPATITIS A 2012-03-10 00:00:00 Completed [facility] HPV 2012-03-10 00:00:00 Completed [facility] Meningococcal Vaccine 2012-03-10 00:00:00 Completed [facility] TDAP 2012-03-10 00:00:00 Completed [facility] Varicella (varivax)(chicken pox) 2012-03-10 00:00:00 Completed [facility] Meningococcal Polysaccharide (groups A, C, Y and W-135) conjugate vaccine (MCV4P) 2012-03-10 00:00:00 Completed [facility] HEPATITIS A 2012-03-10 00:00:00 Completed [facility] HPV 2012-03-10 00:00:00 Completed [facility] Meningococcal Vaccine 2012-03-10 00:00:00 Completed [facility] TDAP 2012-03-10 00:00:00 Completed [facility] Varicella (varivax)(chicken pox) 2012-03-10 00:00:00 Completed [facility] Meningococcal Polysaccharide (groups A, C, Y and W-135) conjugate vaccine (MCV4P) 2012-03-10 00:00:00 Completed [facility] HEPATITIS A 2012-03-10 00:00:00 Completed [facility] HPV 2012-03-10 00:00:00 Completed [facility] Meningococcal Vaccine 2012-03-10 00:00:00 Completed [facility] TDAP 2012-03-10 00:00:00 Completed [facility] Varicella (varivax)(chicken pox) 2012-03-10 00:00:00 Completed [facility] Meningococcal Polysaccharide (groups A, C, Y and W-135) conjugate vaccine (MCV4P) 2012-03-10 00:00:00 Completed [facility] HEPATITIS A 2012-03-10 00:00:00 Completed HPV 2012-03-10 00:00:00 Completed Meningococcal Vaccine 2012-03-10 00:00:00 Completed TDAP 2012-03-10 00:00:00 Completed Varicella (varivax)(chicken pox) 2012-03-10 00:00:00 Completed Meningococcal Polysaccharide (groups A, C, Y and W-135) conjugate vaccine (MCV4P) 2012-03-10 00:00:00 Completed HEPATITIS A 2012-03-10 00:00:00 Completed [facility] HPV 2012-03-10 00:00:00 Completed [facility] Meningococcal Vaccine 2012-03-10 00:00:00 Completed [facility] TDAP 2012-03-10 00:00:00 Completed [facility] Varicella (varivax)(chicken pox) 2012-03-10 00:00:00 Completed [facility] HEPATITIS A 2012-03-10 00:00:00 Completed [facility] HPV 2012-03-10 00:00:00 Completed [facility] Meningococcal Vaccine 2012-03-10 00:00:00 Completed [facility] TDAP 2012-03-10 00:00:00 Completed [facility] Varicella (varivax)(chicken pox) 2012-03-10 00:00:00 Completed [facility] HEPATITIS A 2012-03-10 00:00:00 Completed [facility] HPV 2012-03-10 00:00:00 Completed [facility] Meningococcal Vaccine 2012-03-10 00:00:00 Completed [facility] TDAP 2012-03-10 00:00:00 Completed [facility] Varicella (varivax)(chicken pox) 2012-03-10 00:00:00 Completed [facility] HEPATITIS A 2012-03-10 00:00:00 Completed [facility] HPV 2012-03-10 00:00:00 Completed [facility] Meningococcal Vaccine 2012-03-10 00:00:00 Completed [facility] TDAP 2012-03-10 00:00:00 Completed [facility] Varicella (varivax)(chicken pox) 2012-03-10 00:00:00 Completed [facility] HEPATITIS A 2012-03-10 00:00:00 Completed [facility] HPV 2012-03-10 00:00:00 Completed [facility] Meningococcal Vaccine 2012-03-10 00:00:00 Completed [facility] TDAP 2012-03-10 00:00:00 Completed [facility] Varicella (varivax)(chicken pox) 2012-03-10 00:00:00 Completed [facility] HEPATITIS A 2012-03-10 00:00:00 Completed [facility] HPV 2012-03-10 00:00:00 Completed [facility] Meningococcal Vaccine 2012-03-10 00:00:00 Completed [facility] TDAP 2012-03-10 00:00:00 Completed [facility] Varicella (varivax)(chicken pox) 2012-03-10 00:00:00 Completed [facility] Meningococcal Polysaccharide (groups A, C, Y and W-135) conjugate vaccine (MCV4P) 2012-03-10 00:00:00 Completed [facility] HEPATITIS A 2012-03-10 00:00:00 Completed [facility] HPV 2012-03-10 00:00:00 Completed [facility] Meningococcal Vaccine 2012-03-10 00:00:00 Completed [facility] TDAP 2012-03-10 00:00:00 Completed [facility] Varicella (varivax)(chicken pox) 2012-03-10 00:00:00 Completed [facility] Meningococcal Polysaccharide (groups A, C, Y and W-135) conjugate vaccine (MCV4P) 2012-03-10 00:00:00 Completed [facility] HEPATITIS A 2012-03-10 00:00:00 Completed [facility] HPV 2012-03-10 00:00:00 Completed [facility] Meningococcal Vaccine 2012-03-10 00:00:00 Completed [facility] TDAP 2012-03-10 00:00:00 Completed [facility] Varicella (varivax)(chicken pox) 2012-03-10 00:00:00 Completed [facility] Meningococcal Polysaccharide (groups A, C, Y and W-135) conjugate vaccine (MCV4P) 2012-03-10 00:00:00 Completed [facility] HEPATITIS A 2012-03-10 00:00:00 Completed [facility] HPV 2012-03-10 00:00:00 Completed [facility] Meningococcal Vaccine 2012-03-10 00:00:00 Completed [facility] TDAP 2012-03-10 00:00:00 Completed [facility] Varicella (varivax)(chicken pox) 2012-03-10 00:00:00 Completed [facility] Meningococcal Polysaccharide (groups A, C, Y and W-135) conjugate vaccine (MCV4P) 2012-03-10 00:00:00 Completed [facility] HEPATITIS A 2012-03-10 00:00:00 Completed [facility] HPV 2012-03-10 00:00:00 Completed [facility] Meningococcal Vaccine 2012-03-10 00:00:00 Completed [facility] TDAP 2012-03-10 00:00:00 Completed [facility] Varicella (varivax)(chicken pox) 2012-03-10 00:00:00 Completed [facility] DTAP 2003-04-01 00:00:00 Completed [facility] MMR 2003-04-01 00:00:00 Completed [facility] Polio (IPV/OPV) 2003-04-01 00:00:00 Completed [facility] DTAP 2003-04-01 00:00:00 Completed [facility] MMR 2003-04-01 00:00:00 Completed [facility] Polio (IPV/OPV) 2003-04-01 00:00:00 Completed [facility] DTAP 2003-04-01 00:00:00 Completed [facility] MMR 2003-04-01 00:00:00 Completed [facility] Polio (IPV/OPV) 2003-04-01 00:00:00 Completed [facility] DTAP 2003-04-01 00:00:00 Completed [facility] MMR 2003-04-01 00:00:00 Completed [facility] Polio (IPV/OPV) 2003-04-01 00:00:00 Completed [facility] DTAP 2003-04-01 00:00:00 Completed [facility] MMR 2003-04-01 00:00:00 Completed [facility] Polio (IPV/OPV) 2003-04-01 00:00:00 Completed [facility] DTAP 2003-04-01 00:00:00 Completed [facility] MMR 2003-04-01 00:00:00 Completed [facility] Polio (IPV/OPV) 2003-04-01 00:00:00 Completed [facility] DTaP, Unspecified Formulation 2003-04-01 00:00:00 Completed [facility] IPV 2003-04-01 00:00:00 Completed [facility] DTAP 2003-04-01 00:00:00 Completed [facility] MMR 2003-04-01 00:00:00 Completed [facility] Polio (IPV/OPV) 2003-04-01 00:00:00 Completed [facility] DTaP, Unspecified Formulation 2003-04-01 00:00:00 Completed [facility] IPV 2003-04-01 00:00:00 Completed [facility] DTAP 2003-04-01 00:00:00 Completed [facility] MMR 2003-04-01 00:00:00 Completed [facility] Polio (IPV/OPV) 2003-04-01 00:00:00 Completed [facility] DTaP, Unspecified Formulation 2003-04-01 00:00:00 Completed [facility] IPV 2003-04-01 00:00:00 Completed [facility] DTAP 2003-04-01 00:00:00 Completed [facility] MMR 2003-04-01 00:00:00 Completed [facility] Polio (IPV/OPV) 2003-04-01 00:00:00 Completed [facility] DTaP, Unspecified Formulation 2003-04-01 00:00:00 Completed [facility] IPV 2003-04-01 00:00:00 Completed [facility] DTAP 2003-04-01 00:00:00 Completed [facility] MMR 2003-04-01 00:00:00 Completed [facility] Polio (IPV/OPV) 2003-04-01 00:00:00 Completed [facility] DTaP, Unspecified Formulation 2003-04-01 00:00:00 Completed [facility] IPV 2003-04-01 00:00:00 Completed [facility] DTAP 2003-04-01 00:00:00 Completed [facility] MMR 2003-04-01 00:00:00 Completed [facility] Polio (IPV/OPV) 2003-04-01 00:00:00 Completed [facility] DTaP, Unspecified Formulation 2003-04-01 00:00:00 Completed [facility] IPV 2003-04-01 00:00:00 Completed [facility] DTAP 2003-04-01 00:00:00 Completed [facility] MMR 2003-04-01 00:00:00 Completed [facility] Polio (IPV/OPV) 2003-04-01 00:00:00 Completed [facility] DTaP, Unspecified Formulation 2003-04-01 00:00:00 Completed [facility] IPV 2003-04-01 00:00:00 Completed [facility] DTAP 2003-04-01 00:00:00 Completed [facility] MMR 2003-04-01 00:00:00 Completed [facility] Polio (IPV/OPV) 2003-04-01 00:00:00 Completed [facility] DTaP, Unspecified Formulation 2003-04-01 00:00:00 Completed [facility] IPV 2003-04-01 00:00:00 Completed [facility] DTAP 2003-04-01 00:00:00 Completed [facility] MMR 2003-04-01 00:00:00 Completed [facility] Polio (IPV/OPV) 2003-04-01 00:00:00 Completed [facility] DTaP, Unspecified Formulation 2003-04-01 00:00:00 Completed [facility] IPV 2003-04-01 00:00:00 Completed [facility] DTAP 2003-04-01 00:00:00 Completed [facility] MMR 2003-04-01 00:00:00 Completed [facility] Polio (IPV/OPV) 2003-04-01 00:00:00 Completed [facility] DTaP, Unspecified Formulation 2003-04-01 00:00:00 Completed [facility] IPV 2003-04-01 00:00:00 Completed [facility] DTAP 2003-04-01 00:00:00 Completed [facility] MMR 2003-04-01 00:00:00 Completed [facility] Polio (IPV/OPV) 2003-04-01 00:00:00 Completed [facility] DTaP, Unspecified Formulation 2003-04-01 00:00:00 Completed [facility] IPV 2003-04-01 00:00:00 Completed [facility] DTAP 2003-04-01 00:00:00 Completed [facility] MMR 2003-04-01 00:00:00 Completed [facility] Polio (IPV/OPV) 2003-04-01 00:00:00 Completed [facility] DTaP, Unspecified Formulation 2003-04-01 00:00:00 Completed [facility] IPV 2003-04-01 00:00:00 Completed [facility] DTAP 2003-04-01 00:00:00 Completed [facility] MMR 2003-04-01 00:00:00 Completed [facility] Polio (IPV/OPV) 2003-04-01 00:00:00 Completed [facility] DTaP, Unspecified Formulation 2003-04-01 00:00:00 Completed [facility] IPV 2003-04-01 00:00:00 Completed [facility] DTAP 2003-04-01 00:00:00 Completed [facility] MMR 2003-04-01 00:00:00 Completed [facility] Polio (IPV/OPV) 2003-04-01 00:00:00 Completed [facility] DTaP, Unspecified Formulation 2003-04-01 00:00:00 Completed [facility] IPV 2003-04-01 00:00:00 Completed [facility] DTAP 2003-04-01 00:00:00 Completed [facility] MMR 2003-04-01 00:00:00 Completed [facility] Polio (IPV/OPV) 2003-04-01 00:00:00 Completed [facility] DTaP, Unspecified Formulation 2003-04-01 00:00:00 Completed [facility] IPV 2003-04-01 00:00:00 Completed [facility] DTAP 2003-04-01 00:00:00 Completed [facility] MMR 2003-04-01 00:00:00 Completed [facility] Polio (IPV/OPV) 2003-04-01 00:00:00 Completed [facility] DTaP, Unspecified Formulation 2003-04-01 00:00:00 Completed [facility] IPV 2003-04-01 00:00:00 Completed [facility] DTAP 2003-04-01 00:00:00 Completed [facility] MMR 2003-04-01 00:00:00 Completed [facility] Polio (IPV/OPV) 2003-04-01 00:00:00 Completed [facility] DTaP, Unspecified Formulation 2003-04-01 00:00:00 Completed [facility] IPV 2003-04-01 00:00:00 Completed [facility] DTAP 2003-04-01 00:00:00 Completed [facility] MMR 2003-04-01 00:00:00 Completed [facility] Polio (IPV/OPV) 2003-04-01 00:00:00 Completed [facility] DTaP, Unspecified Formulation 2003-04-01 00:00:00 Completed [facility] IPV 2003-04-01 00:00:00 Completed [facility] DTAP 2003-04-01 00:00:00 Completed [facility] MMR 2003-04-01 00:00:00 Completed [facility] Polio (IPV/OPV) 2003-04-01 00:00:00 Completed [facility] DTaP, Unspecified Formulation 2003-04-01 00:00:00 Completed [facility] IPV 2003-04-01 00:00:00 Completed [facility] DTAP 2003-04-01 00:00:00 Completed [facility] MMR 2003-04-01 00:00:00 Completed [facility] Polio (IPV/OPV) 2003-04-01 00:00:00 Completed [facility] DTaP, Unspecified Formulation 2003-04-01 00:00:00 Completed [facility] IPV 2003-04-01 00:00:00 Completed [facility] DTAP 2003-04-01 00:00:00 Completed [facility] MMR 2003-04-01 00:00:00 Completed [facility] Polio (IPV/OPV) 2003-04-01 00:00:00 Completed [facility] DTaP, Unspecified Formulation 2003-04-01 00:00:00 Completed [facility] IPV 2003-04-01 00:00:00 Completed [facility] DTAP 2003-04-01 00:00:00 Completed [facility] MMR 2003-04-01 00:00:00 Completed [facility] Polio (IPV/OPV) 2003-04-01 00:00:00 Completed [facility] DTaP, Unspecified Formulation 2003-04-01 00:00:00 Completed [facility] IPV 2003-04-01 00:00:00 Completed [facility] DTAP 2003-04-01 00:00:00 Completed [facility] MMR 2003-04-01 00:00:00 Completed [facility] Polio (IPV/OPV) 2003-04-01 00:00:00 Completed [facility] DTaP, Unspecified Formulation 2003-04-01 00:00:00 Completed [facility] IPV 2003-04-01 00:00:00 Completed [facility] DTAP 2003-04-01 00:00:00 Completed [facility] MMR 2003-04-01 00:00:00 Completed [facility] Polio (IPV/OPV) 2003-04-01 00:00:00 Completed [facility] DTaP, Unspecified Formulation 2003-04-01 00:00:00 Completed [facility] IPV 2003-04-01 00:00:00 Completed [facility] DTAP 2003-04-01 00:00:00 Completed [facility] MMR 2003-04-01 00:00:00 Completed [facility] Polio (IPV/OPV) 2003-04-01 00:00:00 Completed [facility] DTaP, Unspecified Formulation 2003-04-01 00:00:00 Completed [facility] IPV 2003-04-01 00:00:00 Completed [facility] DTAP 2003-04-01 00:00:00 Completed [facility] MMR 2003-04-01 00:00:00 Completed [facility] Polio (IPV/OPV) 2003-04-01 00:00:00 Completed [facility] DTaP, Unspecified Formulation 2003-04-01 00:00:00 Completed [facility] IPV 2003-04-01 00:00:00 Completed [facility] DTAP 2003-04-01 00:00:00 Completed MMR 2003-04-01 00:00:00 Completed Polio (IPV/OPV) 2003-04-01 00:00:00 Completed DTaP, Unspecified Formulation 2003-04-01 00:00:00 Completed IPV 2003-04-01 00:00:00 Completed DTAP 2000-04-10 00:00:00 Completed [facility] HIB 4 Dose Schedule 2000-04-10 00:00:00 Completed [facility] MMR 2000-04-10 00:00:00 Completed [facility] Polio (IPV/OPV) 2000-04-10 00:00:00 Completed [facility] Varicella (varivax)(chicken pox) 2000-04-10 00:00:00 Completed [facility] DTAP 2000-04-10 00:00:00 Completed [facility] HIB 4 Dose Schedule 2000-04-10 00:00:00 Completed [facility] MMR 2000-04-10 00:00:00 Completed [facility] Polio (IPV/OPV) 2000-04-10 00:00:00 Completed [facility] Varicella (varivax)(chicken pox) 2000-04-10 00:00:00 Completed [facility] DTAP 2000-04-10 00:00:00 Completed [facility] HIB 4 Dose Schedule 2000-04-10 00:00:00 Completed [facility] MMR 2000-04-10 00:00:00 Completed [facility] Polio (IPV/OPV) 2000-04-10 00:00:00 Completed [facility] Varicella (varivax)(chicken pox) 2000-04-10 00:00:00 Completed [facility] DTAP 2000-04-10 00:00:00 Completed [facility] HIB 4 Dose Schedule 2000-04-10 00:00:00 Completed [facility] MMR 2000-04-10 00:00:00 Completed [facility] Polio (IPV/OPV) 2000-04-10 00:00:00 Completed [facility] Varicella (varivax)(chicken pox) 2000-04-10 00:00:00 Completed [facility] DTAP 2000-04-10 00:00:00 Completed [facility] HIB 4 Dose Schedule 2000-04-10 00:00:00 Completed [facility] MMR 2000-04-10 00:00:00 Completed [facility] Polio (IPV/OPV) 2000-04-10 00:00:00 Completed [facility] [facility] Varicella (varivax)(chicken pox) 2000-04-10 00:00:00 Completed [facility] DTAP 2000-04-10 00:00:00 Completed [facility] HIB 4 Dose Schedule 2000-04-10 00:00:00 Completed [facility] MMR 2000-04-10 00:00:00 Completed [facility] Polio (IPV/OPV) 2000-04-10 00:00:00 Completed [facility] Varicella (varivax)(chicken pox) 2000-04-10 00:00:00 Completed [facility] DTaP, Unspecified Formulation 2000-04-10 00:00:00 Completed [facility] IPV 2000-04-10 00:00:00 Completed [facility] DTAP 2000-04-10 00:00:00 Completed [facility] HIB 4 Dose Schedule 2000-04-10 00:00:00 Completed [facility] MMR 2000-04-10 00:00:00 Completed [facility] Polio (IPV/OPV) 2000-04-10 00:00:00 Completed [facility] Varicella (varivax)(chicken pox) 2000-04-10 00:00:00 Completed [facility] DTaP, Unspecified Formulation 2000-04-10 00:00:00 Completed [facility] IPV 2000-04-10 00:00:00 Completed [facility] DTAP 2000-04-10 00:00:00 Completed [facility] HIB 4 Dose Schedule 2000-04-10 00:00:00 Completed [facility] MMR 2000-04-10 00:00:00 Completed [facility] Polio (IPV/OPV) 2000-04-10 00:00:00 Completed [facility] Varicella (varivax)(chicken pox) 2000-04-10 00:00:00 Completed [facility] DTaP, Unspecified Formulation 2000-04-10 00:00:00 Completed [facility] IPV 2000-04-10 00:00:00 Completed [facility] DTAP 2000-04-10 00:00:00 Completed [facility] HIB 4 Dose Schedule 2000-04-10 00:00:00 Completed [facility] MMR 2000-04-10 00:00:00 Completed [facility] Polio (IPV/OPV) 2000-04-10 00:00:00 Completed [facility] Varicella (varivax)(chicken pox) 2000-04-10 00:00:00 Completed [facility] DTaP, Unspecified Formulation 2000-04-10 00:00:00 Completed [facility] IPV 2000-04-10 00:00:00 Completed [facility] DTAP 2000-04-10 00:00:00 Completed [facility] HIB 4 Dose Schedule 2000-04-10 00:00:00 Completed [facility] MMR 2000-04-10 00:00:00 Completed [facility] Polio (IPV/OPV) 2000-04-10 00:00:00 Completed [facility] Varicella (varivax)(chicken pox) 2000-04-10 00:00:00 Completed [facility] DTaP, Unspecified Formulation 2000-04-10 00:00:00 Completed [facility] IPV 2000-04-10 00:00:00 Completed [facility] DTAP 2000-04-10 00:00:00 Completed [facility] HIB 4 Dose Schedule 2000-04-10 00:00:00 Completed [facility] MMR 2000-04-10 00:00:00 Completed [facility] Polio (IPV/OPV) 2000-04-10 00:00:00 Completed [facility] Varicella (varivax)(chicken pox) 2000-04-10 00:00:00 Completed [facility] DTaP, Unspecified Formulation 2000-04-10 00:00:00 Completed [facility] IPV 2000-04-10 00:00:00 Completed [facility] DTAP 2000-04-10 00:00:00 Completed [facility] HIB 4 Dose Schedule 2000-04-10 00:00:00 Completed [facility] MMR 2000-04-10 00:00:00 Completed [facility] Polio (IPV/OPV) 2000-04-10 00:00:00 Completed [facility] Varicella (varivax)(chicken pox) 2000-04-10 00:00:00 Completed [facility] DTaP, Unspecified Formulation 2000-04-10 00:00:00 Completed [facility] IPV 2000-04-10 00:00:00 Completed [facility] DTAP 2000-04-10 00:00:00 Completed [facility] HIB 4 Dose Schedule 2000-04-10 00:00:00 Completed [facility] MMR 2000-04-10 00:00:00 Completed [facility] Polio (IPV/OPV) 2000-04-10 00:00:00 Completed [facility] Varicella (varivax)(chicken pox) 2000-04-10 00:00:00 Completed [facility] DTaP, Unspecified Formulation 2000-04-10 00:00:00 Completed [facility] IPV 2000-04-10 00:00:00 Completed [facility] DTAP 2000-04-10 00:00:00 Completed [facility] HIB 4 Dose Schedule 2000-04-10 00:00:00 Completed [facility] MMR 2000-04-10 00:00:00 Completed [facility] Polio (IPV/OPV) 2000-04-10 00:00:00 Completed [facility] Varicella (varivax)(chicken pox) 2000-04-10 00:00:00 Completed [facility] DTaP, Unspecified Formulation 2000-04-10 00:00:00 Completed [facility] IPV 2000-04-10 00:00:00 Completed [facility] DTAP 2000-04-10 00:00:00 Completed [facility] HIB 4 Dose Schedule 2000-04-10 00:00:00 Completed [facility] MMR 2000-04-10 00:00:00 Completed [facility] Polio (IPV/OPV) 2000-04-10 00:00:00 Completed [facility] Varicella (varivax)(chicken pox) 2000-04-10 00:00:00 Completed [facility] DTaP, Unspecified Formulation 2000-04-10 00:00:00 Completed [facility] IPV 2000-04-10 00:00:00 Completed [facility] DTAP 2000-04-10 00:00:00 Completed [facility] HIB 4 Dose Schedule 2000-04-10 00:00:00 Completed [facility] MMR 2000-04-10 00:00:00 Completed [facility] Polio (IPV/OPV) 2000-04-10 00:00:00 Completed [facility] Varicella (varivax)(chicken pox) 2000-04-10 00:00:00 Completed [facility] DTaP, Unspecified Formulation 2000-04-10 00:00:00 Completed [facility] IPV 2000-04-10 00:00:00 Completed [facility] DTAP 2000-04-10 00:00:00 Completed [facility] HIB 4 Dose Schedule 2000-04-10 00:00:00 Completed [facility] MMR 2000-04-10 00:00:00 Completed [facility] Polio (IPV/OPV) 2000-04-10 00:00:00 Completed [facility] Varicella (varivax)(chicken pox) 2000-04-10 00:00:00 Completed [facility] DTaP, Unspecified Formulation 2000-04-10 00:00:00 Completed [facility] IPV 2000-04-10 00:00:00 Completed [facility] DTAP 2000-04-10 00:00:00 Completed [facility] HIB 4 Dose Schedule 2000-04-10 00:00:00 Completed [facility] MMR 2000-04-10 00:00:00 Completed [facility] Polio (IPV/OPV) 2000-04-10 00:00:00 Completed [facility] Varicella (varivax)(chicken pox) 2000-04-10 00:00:00 Completed [facility] DTaP, Unspecified Formulation 2000-04-10 00:00:00 Completed [facility] IPV 2000-04-10 00:00:00 Completed [facility] DTAP 2000-04-10 00:00:00 Completed [facility] HIB 4 Dose Schedule 2000-04-10 00:00:00 Completed [facility] MMR 2000-04-10 00:00:00 Completed [facility] Polio (IPV/OPV) 2000-04-10 00:00:00 Completed [facility] Varicella (varivax)(chicken pox) 2000-04-10 00:00:00 Completed [facility] DTaP, Unspecified Formulation 2000-04-10 00:00:00 Completed [facility] IPV 2000-04-10 00:00:00 Completed [facility] DTAP 2000-04-10 00:00:00 Completed [facility] HIB 4 Dose Schedule 2000-04-10 00:00:00 Completed [facility] MMR 2000-04-10 00:00:00 Completed [facility] Polio (IPV/OPV) 2000-04-10 00:00:00 Completed [facility] Varicella (varivax)(chicken pox) 2000-04-10 00:00:00 Completed [facility] DTaP, Unspecified Formulation 2000-04-10 00:00:00 Completed [facility] IPV 2000-04-10 00:00:00 Completed [facility] DTAP 2000-04-10 00:00:00 Completed [facility] HIB 4 Dose Schedule 2000-04-10 00:00:00 Completed [facility] MMR 2000-04-10 00:00:00 Completed [facility] Polio (IPV/OPV) 2000-04-10 00:00:00 Completed [facility] Varicella (varivax)(chicken pox) 2000-04-10 00:00:00 Completed [facility] DTaP, Unspecified Formulation 2000-04-10 00:00:00 Completed [facility] IPV 2000-04-10 00:00:00 Completed [facility] DTAP 2000-04-10 00:00:00 Completed [facility] HIB 4 Dose Schedule 2000-04-10 00:00:00 Completed [facility] MMR 2000-04-10 00:00:00 Completed [facility] Polio (IPV/OPV) 2000-04-10 00:00:00 Completed [facility] Varicella (varivax)(chicken pox) 2000-04-10 00:00:00 Completed [facility] DTaP, Unspecified Formulation 2000-04-10 00:00:00 Completed [facility] IPV 2000-04-10 00:00:00 Completed [facility] DTAP 2000-04-10 00:00:00 Completed [facility] HIB 4 Dose Schedule 2000-04-10 00:00:00 Completed [facility] MMR 2000-04-10 00:00:00 Completed [facility] Polio (IPV/OPV) 2000-04-10 00:00:00 Completed [facility] Varicella (varivax)(chicken pox) 2000-04-10 00:00:00 Completed [facility] DTaP, Unspecified Formulation 2000-04-10 00:00:00 Completed [facility] IPV 2000-04-10 00:00:00 Completed [facility] DTAP 2000-04-10 00:00:00 Completed [facility] HIB 4 Dose Schedule 2000-04-10 00:00:00 Completed [facility] MMR 2000-04-10 00:00:00 Completed [facility] Polio (IPV/OPV) 2000-04-10 00:00:00 Completed [facility] Varicella (varivax)(chicken pox) 2000-04-10 00:00:00 Completed [facility] DTaP, Unspecified Formulation 2000-04-10 00:00:00 Completed [facility] IPV 2000-04-10 00:00:00 Completed [facility] DTAP 2000-04-10 00:00:00 Completed [facility] HIB 4 Dose Schedule 2000-04-10 00:00:00 Completed [facility] MMR 2000-04-10 00:00:00 Completed [facility] Polio (IPV/OPV) 2000-04-10 00:00:00 Completed [facility] Varicella (varivax)(chicken pox) 2000-04-10 00:00:00 Completed [facility] DTaP, Unspecified Formulation 2000-04-10 00:00:00 Completed [facility] IPV 2000-04-10 00:00:00 Completed [facility] DTAP 2000-04-10 00:00:00 Completed [facility] HIB 4 Dose Schedule 2000-04-10 00:00:00 Completed [facility] MMR 2000-04-10 00:00:00 Completed [facility] Polio (IPV/OPV) 2000-04-10 00:00:00 Completed [facility] Varicella (varivax)(chicken pox) 2000-04-10 00:00:00 Completed [facility] DTaP, Unspecified Formulation 2000-04-10 00:00:00 Completed [facility] IPV 2000-04-10 00:00:00 Completed [facility] DTAP 2000-04-10 00:00:00 Completed [facility] HIB 4 Dose Schedule 2000-04-10 00:00:00 Completed [facility] MMR 2000-04-10 00:00:00 Completed [facility] Polio (IPV/OPV) 2000-04-10 00:00:00 Completed [facility] Varicella (varivax)(chicken pox) 2000-04-10 00:00:00 Completed [facility] DTaP, Unspecified Formulation 2000-04-10 00:00:00 Completed [facility] IPV 2000-04-10 00:00:00 Completed [facility] DTAP 2000-04-10 00:00:00 Completed [facility] HIB 4 Dose Schedule 2000-04-10 00:00:00 Completed [facility] MMR 2000-04-10 00:00:00 Completed [facility] Polio (IPV/OPV) 2000-04-10 00:00:00 Completed [facility] Varicella (varivax)(chicken pox) 2000-04-10 00:00:00 Completed [facility] DTaP, Unspecified Formulation 2000-04-10 00:00:00 Completed [facility] IPV 2000-04-10 00:00:00 Completed [facility] DTAP 2000-04-10 00:00:00 Completed [facility] HIB 4 Dose Schedule 2000-04-10 00:00:00 Completed [facility] MMR 2000-04-10 00:00:00 Completed [facility] Polio (IPV/OPV) 2000-04-10 00:00:00 Completed [facility] Varicella (varivax)(chicken pox) 2000-04-10 00:00:00 Completed [facility] DTaP, Unspecified Formulation 2000-04-10 00:00:00 Completed [facility] IPV 2000-04-10 00:00:00 Completed [facility] DTAP 2000-04-10 00:00:00 Completed [facility] HIB 4 Dose Schedule 2000-04-10 00:00:00 Completed [facility] MMR 2000-04-10 00:00:00 Completed [facility] Polio (IPV/OPV) 2000-04-10 00:00:00 Completed [facility] Varicella (varivax)(chicken pox) 2000-04-10 00:00:00 Completed [facility] DTaP, Unspecified Formulation 2000-04-10 00:00:00 Completed [facility] IPV 2000-04-10 00:00:00 Completed [facility] DTAP 2000-04-10 00:00:00 Completed [facility] HIB 4 Dose Schedule 2000-04-10 00:00:00 Completed [facility] MMR 2000-04-10 00:00:00 Completed [facility] Polio (IPV/OPV) 2000-04-10 00:00:00 Completed [facility] Varicella (varivax)(chicken pox) 2000-04-10 00:00:00 Completed [facility] DTaP, Unspecified Formulation 2000-04-10 00:00:00 Completed [facility] IPV 2000-04-10 00:00:00 Completed [facility] DTAP 2000-04-10 00:00:00 Completed HIB 4 Dose Schedule 2000-04-10 00:00:00 Completed MMR 2000-04-10 00:00:00 Completed Polio (IPV/OPV) 2000-04-10 00:00:00 Completed Varicella (varivax)(chicken pox) 2000-04-10 00:00:00 Completed DTaP, Unspecified Formulation 2000-04-10 00:00:00 Completed IPV 2000-04-10 00:00:00 Completed DTAP 1999 00:00:00 Completed [facility] HIB 4 Dose Schedule 1999 00:00:00 Completed [facility] Hep B, Adol or Pedi Dosage 1999 00:00:00 Completed [facility] DTAP 1999 00:00:00 Completed [facility] HIB 4 Dose Schedule 1999 00:00:00 Completed [facility] Hep B, Adol or Pedi Dosage 1999 00:00:00 Completed [facility] DTAP 1999 00:00:00 Completed [facility] HIB 4 Dose Schedule 1999 00:00:00 Completed [facility] Hep B, Adol or Pedi Dosage 1999 00:00:00 Completed [facility] DTAP 1999 00:00:00 Completed [facility] HIB 4 Dose Schedule 1999 00:00:00 Completed [facility] Hep B, Adol or Pedi Dosage 1999 00:00:00 Completed [facility] DTAP 1999 00:00:00 Completed [facility] HIB 4 Dose Schedule 1999 00:00:00 Completed [facility] Hep B, Adol or Pedi Dosage 1999 00:00:00 Completed [facility] DTAP 1999 00:00:00 Completed [facility] HIB 4 Dose Schedule 1999 00:00:00 Completed [facility] Hep B, Adol or Pedi Dosage 1999 00:00:00 Completed [facility] DTaP, Unspecified Formulation 1999 00:00:00 Completed [facility] DTAP 1999 00:00:00 Completed [facility] HIB 4 Dose Schedule 1999 00:00:00 Completed [facility] Hep B, Adol or Pedi Dosage 1999 00:00:00 Completed [facility] DTaP, Unspecified Formulation 1999 00:00:00 Completed [facility] DTAP 1999 00:00:00 Completed [facility] HIB 4 Dose Schedule 1999 00:00:00 Completed [facility] Hep B, Adol or Pedi Dosage 1999 00:00:00 Completed [facility] DTaP, Unspecified Formulation 1999 00:00:00 Completed [facility] DTAP 1999 00:00:00 Completed [facility] HIB 4 Dose Schedule 1999 00:00:00 Completed [facility] Hep B, Adol or Pedi Dosage 1999 00:00:00 Completed [facility] DTaP, Unspecified Formulation 1999 00:00:00 Completed [facility] DTAP 1999 00:00:00 Completed [facility] HIB 4 Dose Schedule 1999 00:00:00 Completed [facility] Hep B, Adol or Pedi Dosage 1999 00:00:00 Completed [facility] DTaP, Unspecified Formulation 1999 00:00:00 Completed [facility] DTAP 1999 00:00:00 Completed [facility] HIB 4 Dose Schedule 1999 00:00:00 Completed [facility] Hep B, Adol or Pedi Dosage 1999 00:00:00 Completed [facility] DTaP, Unspecified Formulation 1999 00:00:00 Completed [facility] DTAP 1999 00:00:00 Completed [facility] HIB 4 Dose Schedule 1999 00:00:00 Completed [facility] Hep B, Adol or Pedi Dosage 1999 00:00:00 Completed [facility] DTaP, Unspecified Formulation 1999 00:00:00 Completed [facility] DTAP 1999 00:00:00 Completed [facility] HIB 4 Dose Schedule 1999 00:00:00 Completed [facility] Hep B, Adol or Pedi Dosage 1999 00:00:00 Completed [facility] DTaP, Unspecified Formulation 1999 00:00:00 Completed [facility] DTAP 1999 00:00:00 Completed [facility] HIB 4 Dose Schedule 1999 00:00:00 Completed [facility] Hep B, Adol or Pedi Dosage 1999 00:00:00 Completed [facility] DTaP, Unspecified Formulation 1999 00:00:00 Completed [facility] DTAP 1999 00:00:00 Completed [facility] HIB 4 Dose Schedule 1999 00:00:00 Completed [facility] Hep B, Adol or Pedi Dosage 1999 00:00:00 Completed [facility] DTaP, Unspecified Formulation 1999 00:00:00 Completed [facility] DTAP 1999 00:00:00 Completed [facility] HIB 4 Dose Schedule 1999 00:00:00 Completed [facility] Hep B, Adol or Pedi Dosage 1999 00:00:00 Completed [facility] DTaP, Unspecified Formulation 1999 00:00:00 Completed [facility] DTAP 1999 00:00:00 Completed [facility] HIB 4 Dose Schedule 1999 00:00:00 Completed [facility] Hep B, Adol or Pedi Dosage 1999 00:00:00 Completed [facility] DTaP, Unspecified Formulation 1999 00:00:00 Completed [facility] DTAP 1999 00:00:00 Completed [facility] HIB 4 Dose Schedule 1999 00:00:00 Completed [facility] Hep B, Adol or Pedi Dosage 1999 00:00:00 Completed [facility] DTaP, Unspecified Formulation 1999 00:00:00 Completed [facility] DTAP 1999 00:00:00 Completed [facility] HIB 4 Dose Schedule 1999 00:00:00 Completed [facility] Hep B, Adol or Pedi Dosage 1999 00:00:00 Completed [facility] [place] DTaP, Unspecified Formulation 1999 00:00:00 Completed [facility] DTAP 1999 00:00:00 Completed [facility] HIB 4 Dose Schedule 1999 00:00:00 Completed [facility] Hep B, Adol or Pedi Dosage 1999 00:00:00 Completed [facility] DTaP, Unspecified Formulation 1999 00:00:00 Completed [facility] DTAP 1999 00:00:00 Completed [facility] HIB 4 Dose Schedule 1999 00:00:00 Completed [facility] Hep B, Adol or Pedi Dosage 1999 00:00:00 Completed [facility] DTaP, Unspecified Formulation 1999 00:00:00 Completed [facility] DTAP 1999 00:00:00 Completed [facility] HIB 4 Dose Schedule 1999 00:00:00 Completed [facility] Hep B, Adol or Pedi Dosage 1999 00:00:00 Completed [facility] DTaP, Unspecified Formulation 1999 00:00:00 Completed [facility] DTAP 1999 00:00:00 Completed [facility] HIB 4 Dose Schedule 1999 00:00:00 Completed [facility] Hep B, Adol or Pedi Dosage 1999 00:00:00 Completed [facility] DTaP, Unspecified Formulation 1999 00:00:00 Completed [facility] DTAP 1999 00:00:00 Completed [facility] HIB 4 Dose Schedule 1999 00:00:00 Completed [facility] Hep B, Adol or Pedi Dosage 1999 00:00:00 Completed [facility] DTaP, Unspecified Formulation 1999 00:00:00 Completed [facility] DTAP 1999 00:00:00 Completed [facility] HIB 4 Dose Schedule 1999 00:00:00 Completed [facility] Hep B, Adol or Pedi Dosage 1999 00:00:00 Completed [facility] DTaP, Unspecified Formulation 1999 00:00:00 Completed [facility] DTAP 1999 00:00:00 Completed [facility] HIB 4 Dose Schedule 1999 00:00:00 Completed [facility] Hep B, Adol or Pedi Dosage 1999 00:00:00 Completed [facility] DTaP, Unspecified Formulation 1999 00:00:00 Completed [facility] DTAP 1999 00:00:00 Completed [facility] HIB 4 Dose Schedule 1999 00:00:00 Completed [facility] Hep B, Adol or Pedi Dosage 1999 00:00:00 Completed [facility] DTaP, Unspecified Formulation 1999 00:00:00 Completed [facility] DTAP 1999 00:00:00 Completed [facility] HIB 4 Dose Schedule 1999 00:00:00 Completed [facility] Hep B, Adol or Pedi Dosage 1999 00:00:00 Completed [facility] DTaP, Unspecified Formulation 1999 00:00:00 Completed [facility] DTAP 1999 00:00:00 Completed [facility] HIB 4 Dose Schedule 1999 00:00:00 Completed [facility] Hep B, Adol or Pedi Dosage 1999 00:00:00 Completed [facility] DTaP, Unspecified Formulation 1999 00:00:00 Completed [facility] DTAP 1999 00:00:00 Completed [facility] HIB 4 Dose Schedule 1999 00:00:00 Completed [facility] Hep B, Adol or Pedi Dosage 1999 00:00:00 Completed [facility] DTaP, Unspecified Formulation 1999 00:00:00 Completed [facility] DTAP 1999 00:00:00 Completed [facility] HIB 4 Dose Schedule 1999 00:00:00 Completed [facility] Hep B, Adol or Pedi Dosage 1999 00:00:00 Completed [facility] DTaP, Unspecified Formulation 1999 00:00:00 Completed [facility] DTAP 1999 00:00:00 Completed HIB 4 Dose Schedule 1999 00:00:00 Completed Hep B, Adol or Pedi Dosage 1999 00:00:00 Completed DTaP, Unspecified Formulation 1999 00:00:00 Completed DTAP 1999 00:00:00 Completed [facility] HIB 4 Dose Schedule 1999 00:00:00 Completed [facility] Polio (IPV/OPV) 1999 00:00:00 Completed [facility] DTAP 1999 00:00:00 Completed [facility] HIB 4 Dose Schedule 1999 00:00:00 Completed [facility] Polio (IPV/OPV) 1999 00:00:00 Completed [facility] DTAP 1999 00:00:00 Completed [facility] HIB 4 Dose Schedule 1999 00:00:00 Completed [facility] Polio (IPV/OPV) 1999 00:00:00 Completed [facility] DTAP 1999 00:00:00 Completed [facility] HIB 4 Dose Schedule 1999 00:00:00 Completed [facility] Polio (IPV/OPV) 1999 00:00:00 Completed [facility] DTAP 1999 00:00:00 Completed [facility] HIB 4 Dose Schedule 1999 00:00:00 Completed [facility] Polio (IPV/OPV) 1999 00:00:00 Completed [facility] DTAP 1999 00:00:00 Completed [facility] HIB 4 Dose Schedule 1999 00:00:00 Completed [facility] Polio (IPV/OPV) 1999 00:00:00 Completed [facility] DTaP, Unspecified Formulation 1999 00:00:00 Completed [facility] IPV 1999 00:00:00 Completed [facility] DTAP 1999 00:00:00 Completed [facility] HIB 4 Dose Schedule 1999 00:00:00 Completed [facility] Polio (IPV/OPV) 1999 00:00:00 Completed [facility] DTaP, Unspecified Formulation 1999 00:00:00 Completed [facility] IPV 1999 00:00:00 Completed [facility] DTAP 1999 00:00:00 Completed [facility] HIB 4 Dose Schedule 1999 00:00:00 Completed [facility] Polio (IPV/OPV) 1999 00:00:00 Completed [facility] DTaP, Unspecified Formulation 1999 00:00:00 Completed [facility] IPV 1999 00:00:00 Completed [facility] DTAP 1999 00:00:00 Completed [facility] HIB 4 Dose Schedule 1999 00:00:00 Completed [facility] Polio (IPV/OPV) 1999 00:00:00 Completed [facility] DTaP, Unspecified Formulation 1999 00:00:00 Completed [facility] IPV 1999 00:00:00 Completed [facility] DTAP 1999 00:00:00 Completed [facility] HIB 4 Dose Schedule 1999 00:00:00 Completed [facility] Polio (IPV/OPV) 1999 00:00:00 Completed [facility] DTaP, Unspecified Formulation 1999 00:00:00 Completed [facility] IPV 1999 00:00:00 Completed [facility] DTAP 1999 00:00:00 Completed [facility] HIB 4 Dose Schedule 1999 00:00:00 Completed [facility] Polio (IPV/OPV) 1999 00:00:00 Completed [facility] DTaP, Unspecified Formulation 1999 00:00:00 Completed [facility] IPV 1999 00:00:00 Completed [facility] DTAP 1999 00:00:00 Completed [facility] HIB 4 Dose Schedule 1999 00:00:00 Completed [facility] Polio (IPV/OPV) 1999 00:00:00 Completed [facility] DTaP, Unspecified Formulation 1999 00:00:00 Completed [facility] IPV 1999 00:00:00 Completed [facility] DTAP 1999 00:00:00 Completed [facility] HIB 4 Dose Schedule 1999 00:00:00 Completed [facility] Polio (IPV/OPV) 1999 00:00:00 Completed [facility] DTaP, Unspecified Formulation 1999 00:00:00 Completed [facility] IPV 1999 00:00:00 Completed [facility] DTAP 1999 00:00:00 Completed [facility] HIB 4 Dose Schedule 1999 00:00:00 Completed [facility] Polio (IPV/OPV) 1999 00:00:00 Completed [facility] DTaP, Unspecified Formulation 1999 00:00:00 Completed [facility] IPV 1999 00:00:00 Completed [facility] DTAP 1999 00:00:00 Completed [facility] HIB 4 Dose Schedule 1999 00:00:00 Completed [facility] Polio (IPV/OPV) 1999 00:00:00 Completed [facility] DTaP, Unspecified Formulation 1999 00:00:00 Completed [facility] IPV 1999 00:00:00 Completed [facility] DTAP 1999 00:00:00 Completed [facility] HIB 4 Dose Schedule 1999 00:00:00 Completed [facility] Polio (IPV/OPV) 1999 00:00:00 Completed [facility] DTaP, Unspecified Formulation 1999 00:00:00 Completed [facility] IPV 1999 00:00:00 Completed [facility] DTAP 1999 00:00:00 Completed [facility] HIB 4 Dose Schedule 1999 00:00:00 Completed [facility] Polio (IPV/OPV) 1999 00:00:00 Completed [facility] DTaP, Unspecified Formulation 1999 00:00:00 Completed [facility] IPV 1999 00:00:00 Completed [facility] DTAP 1999 00:00:00 Completed [facility] HIB 4 Dose Schedule 1999 00:00:00 Completed [facility] Polio (IPV/OPV) 1999 00:00:00 Completed [facility] DTaP, Unspecified Formulation 1999 00:00:00 Completed [facility] IPV 1999 00:00:00 Completed [facility] DTAP 1999 00:00:00 Completed [facility] HIB 4 Dose Schedule 1999 00:00:00 Completed [facility] Polio (IPV/OPV) 1999 00:00:00 Completed [facility] DTaP, Unspecified Formulation 1999 00:00:00 Completed [facility] IPV 1999 00:00:00 Completed [facility] DTAP 1999 00:00:00 Completed [facility] HIB 4 Dose Schedule 1999 00:00:00 Completed [facility] Polio (IPV/OPV) 1999 00:00:00 Completed [facility] DTaP, Unspecified Formulation 1999 00:00:00 Completed [facility] IPV 1999 00:00:00 Completed [facility] DTAP 1999 00:00:00 Completed [facility] HIB 4 Dose Schedule 1999 00:00:00 Completed [facility] Polio (IPV/OPV) 1999 00:00:00 Completed [facility] DTaP, Unspecified Formulation 1999 00:00:00 Completed [facility] IPV 1999 00:00:00 Completed [facility] DTAP 1999 00:00:00 Completed [facility] HIB 4 Dose Schedule 1999 00:00:00 Completed [facility] Polio (IPV/OPV) 1999 00:00:00 Completed [facility] DTaP, Unspecified Formulation 1999 00:00:00 Completed [facility] IPV 1999 00:00:00 Completed [facility] DTAP 1999 00:00:00 Completed [facility] HIB 4 Dose Schedule 1999 00:00:00 Completed [facility] Polio (IPV/OPV) 1999 00:00:00 Completed [facility] DTaP, Unspecified Formulation 1999 00:00:00 Completed [facility] IPV 1999 00:00:00 Completed [facility] DTAP 1999 00:00:00 Completed [facility] HIB 4 Dose Schedule 1999 00:00:00 Completed [facility] Polio (IPV/OPV) 1999 00:00:00 Completed [facility] DTaP, Unspecified Formulation 1999 00:00:00 Completed [facility] IPV 1999 00:00:00 Completed [facility] DTAP 1999 00:00:00 Completed [facility] HIB 4 Dose Schedule 1999 00:00:00 Completed [facility] Polio (IPV/OPV) 1999 00:00:00 Completed [facility] DTaP, Unspecified Formulation 1999 00:00:00 Completed [facility] IPV 1999 00:00:00 Completed [facility] DTAP 1999 00:00:00 Completed [facility] HIB 4 Dose Schedule 1999 00:00:00 Completed [facility] Polio (IPV/OPV) 1999 00:00:00 Completed [facility] DTaP, Unspecified Formulation 1999 00:00:00 Completed [facility] IPV 1999 00:00:00 Completed [facility] DTAP 1999 00:00:00 Completed [facility] HIB 4 Dose Schedule 1999 00:00:00 Completed [facility] Polio (IPV/OPV) 1999 00:00:00 Completed [facility] DTaP, Unspecified Formulation 1999 00:00:00 Completed [facility] IPV 1999 00:00:00 Completed [facility] DTAP 1999 00:00:00 Completed [facility] HIB 4 Dose Schedule 1999 00:00:00 Completed [facility] Polio (IPV/OPV) 1999 00:00:00 Completed [facility] DTaP, Unspecified Formulation 1999 00:00:00 Completed [facility] IPV 1999 00:00:00 Completed [facility] DTAP 1999 00:00:00 Completed [facility] HIB 4 Dose Schedule 1999 00:00:00 Completed [facility] Polio (IPV/OPV) 1999 00:00:00 Completed [facility] DTaP, Unspecified Formulation 1999 00:00:00 Completed [facility] IPV 1999 00:00:00 Completed [facility] DTAP 1999 00:00:00 Completed [facility] HIB 4 Dose Schedule 1999 00:00:00 Completed [facility] Polio (IPV/OPV) 1999 00:00:00 Completed [facility] DTaP, Unspecified Formulation 1999 00:00:00 Completed [facility] IPV 1999 00:00:00 Completed [facility] DTAP 1999 00:00:00 Completed [facility] HIB 4 Dose Schedule 1999 00:00:00 Completed [facility] Polio (IPV/OPV) 1999 00:00:00 Completed [facility] DTaP, Unspecified Formulation 1999 00:00:00 Completed [facility] IPV 1999 00:00:00 Completed [facility] DTAP 1999 00:00:00 Completed HIB 4 Dose Schedule 1999 00:00:00 Completed Polio (IPV/OPV) 1999 00:00:00 Completed DTaP, Unspecified Formulation 1999 00:00:00 Completed IPV 1999 00:00:00 Completed DTAP 1999 00:00:00 Completed [facility] HIB 4 Dose Schedule 1999 00:00:00 Completed [facility] Hep B, Adol or Pedi Dosage 1999 00:00:00 Completed [facility] Polio (IPV/OPV) 1999 00:00:00 Completed [facility] DTAP 1999 00:00:00 Completed [facility] HIB 4 Dose Schedule 1999 00:00:00 Completed [facility] Hep B, Adol or Pedi Dosage 1999 00:00:00 Completed [facility] Polio (IPV/OPV) 1999 00:00:00 Completed [facility] DTAP 1999 00:00:00 Completed [facility] HIB 4 Dose Schedule 1999 00:00:00 Completed [facility] Hep B, Adol or Pedi Dosage 1999 00:00:00 Completed [facility] Polio (IPV/OPV) 1999 00:00:00 Completed [facility] DTAP 1999 00:00:00 Completed [facility] HIB 4 Dose Schedule 1999 00:00:00 Completed [facility] Hep B, Adol or Pedi Dosage 1999 00:00:00 Completed [facility] Polio (IPV/OPV) 1999 00:00:00 Completed [facility] DTAP 1999 00:00:00 Completed [facility] HIB 4 Dose Schedule 1999 00:00:00 Completed [facility] Hep B, Adol or Pedi Dosage 1999 00:00:00 Completed [facility] Polio (IPV/OPV) 1999 00:00:00 Completed [facility] DTAP 1999 00:00:00 Completed [facility] HIB 4 Dose Schedule 1999 00:00:00 Completed [facility] Hep B, Adol or Pedi Dosage 1999 00:00:00 Completed [facility] Polio (IPV/OPV) 1999 00:00:00 Completed [facility] DTaP, Unspecified Formulation 1999 00:00:00 Completed [facility] IPV 1999 00:00:00 Completed [facility] DTAP 1999 00:00:00 Completed [facility] HIB 4 Dose Schedule 1999 00:00:00 Completed [facility] Hep B, Adol or Pedi Dosage 1999 00:00:00 Completed [facility] Polio (IPV/OPV) 1999 00:00:00 Completed [facility] DTaP, Unspecified Formulation 1999 00:00:00 Completed [facility] IPV 1999 00:00:00 Completed [facility] DTAP 1999 00:00:00 Completed [facility] HIB 4 Dose Schedule 1999 00:00:00 Completed [facility] Hep B, Adol or Pedi Dosage 1999 00:00:00 Completed [facility] Polio (IPV/OPV) 1999 00:00:00 Completed [facility] DTaP, Unspecified Formulation 1999 00:00:00 Completed [facility] IPV 1999 00:00:00 Completed [facility] DTAP 1999 00:00:00 Completed [facility] HIB 4 Dose Schedule 1999 00:00:00 Completed [facility] Hep B, Adol or Pedi Dosage 1999 00:00:00 Completed [facility] Polio (IPV/OPV) 1999 00:00:00 Completed [facility] DTaP, Unspecified Formulation 1999 00:00:00 Completed [facility] IPV 1999 00:00:00 Completed [facility] DTAP 1999 00:00:00 Completed [facility] HIB 4 Dose Schedule 1999 00:00:00 Completed [facility] Hep B, Adol or Pedi Dosage 1999 00:00:00 Completed [facility] Polio (IPV/OPV) 1999 00:00:00 Completed [facility] DTaP, Unspecified Formulation 1999 00:00:00 Completed [facility] IPV 1999 00:00:00 Completed [facility] DTAP 1999 00:00:00 Completed [facility] HIB 4 Dose Schedule 1999 00:00:00 Completed [facility] Hep B, Adol or Pedi Dosage 1999 00:00:00 Completed [facility] Polio (IPV/OPV) 1999 00:00:00 Completed [facility] DTaP, Unspecified Formulation 1999 00:00:00 Completed [facility] IPV 1999 00:00:00 Completed [facility] DTAP 1999 00:00:00 Completed [facility] HIB 4 Dose Schedule 1999 00:00:00 Completed [facility] Hep B, Adol or Pedi Dosage 1999 00:00:00 Completed [facility] Polio (IPV/OPV) 1999 00:00:00 Completed [facility] DTaP, Unspecified Formulation 1999 00:00:00 Completed [facility] IPV 1999 00:00:00 Completed [facility] DTAP 1999 00:00:00 Completed [facility] HIB 4 Dose Schedule 1999 00:00:00 Completed [facility] Hep B, Adol or Pedi Dosage 1999 00:00:00 Completed [facility] Polio (IPV/OPV) 1999 00:00:00 Completed [facility] DTaP, Unspecified Formulation 1999 00:00:00 Completed [facility] IPV 1999 00:00:00 Completed [facility] DTAP 1999 00:00:00 Completed [facility] HIB 4 Dose Schedule 1999 00:00:00 Completed [facility] Hep B, Adol or Pedi Dosage 1999 00:00:00 Completed [facility] Polio (IPV/OPV) 1999 00:00:00 Completed [facility] DTaP, Unspecified Formulation 1999 00:00:00 [facility] [facility] IPV 1999 00:00:00 Completed [facility] DTAP 1999 00:00:00 Completed [facility] HIB 4 Dose Schedule 1999 00:00:00 Completed [facility] Hep B, Adol or Pedi Dosage 1999 00:00:00 Completed [facility] Polio (IPV/OPV) 1999 00:00:00 Completed [facility] DTaP, Unspecified Formulation 1999 00:00:00 Completed [facility] IPV 1999 00:00:00 Completed [facility] DTAP 1999 00:00:00 Completed [facility] HIB 4 Dose Schedule 1999 00:00:00 Completed [facility] Hep B, Adol or Pedi Dosage 1999 00:00:00 Completed [facility] Polio (IPV/OPV) 1999 00:00:00 Completed [facility] DTaP, Unspecified Formulation 1999 00:00:00 Completed [facility] IPV 1999 00:00:00 Completed [facility] DTAP 1999 00:00:00 Completed [facility] HIB 4 Dose Schedule 1999 00:00:00 Completed [facility] Hep B, Adol or Pedi Dosage 1999 00:00:00 Completed [facility] Polio (IPV/OPV) 1999 00:00:00 Completed [facility] DTaP, Unspecified Formulation 1999 00:00:00 Completed [facility] IPV 1999 00:00:00 Completed [facility] DTAP 1999 00:00:00 Completed [facility] HIB 4 Dose Schedule 1999 00:00:00 Completed [facility] Hep B, Adol or Pedi Dosage 1999 00:00:00 Completed [facility] Polio (IPV/OPV) 1999 00:00:00 Completed [facility] DTaP, Unspecified Formulation 1999 00:00:00 Completed [facility] IPV 1999 00:00:00 Completed [facility] DTAP 1999 00:00:00 Completed [facility] HIB 4 Dose Schedule 1999 00:00:00 Completed [facility] Hep B, Adol or Pedi Dosage 1999 00:00:00 Completed [facility] Polio (IPV/OPV) 1999 00:00:00 Completed [facility] DTaP, Unspecified Formulation 1999 00:00:00 Completed [facility] IPV 1999 00:00:00 Completed [facility] DTAP 1999 00:00:00 Completed [facility] HIB 4 Dose Schedule 1999 00:00:00 Completed [facility] Hep B, Adol or Pedi Dosage 1999 00:00:00 Completed [facility] Polio (IPV/OPV) 1999 00:00:00 Completed [facility] DTaP, Unspecified Formulation 1999 00:00:00 Completed [facility] IPV 1999 00:00:00 Completed [facility] DTAP 1999 00:00:00 Completed [facility] HIB 4 Dose Schedule 1999 00:00:00 Completed [facility] Hep B, Adol or Pedi Dosage 1999 00:00:00 Completed [facility] Polio (IPV/OPV) 1999 00:00:00 Completed [facility] DTaP, Unspecified Formulation 1999 00:00:00 Completed [facility] IPV 1999 00:00:00 Completed [facility] DTAP 1999 00:00:00 Completed [facility] HIB 4 Dose Schedule 1999 00:00:00 Completed [facility] Hep B, Adol or Pedi Dosage 1999 00:00:00 Completed [facility] Polio (IPV/OPV) 1999 00:00:00 Completed [facility] DTaP, Unspecified Formulation 1999 00:00:00 Completed [facility] IPV 1999 00:00:00 Completed [facility] DTAP 1999 00:00:00 Completed [facility] HIB 4 Dose Schedule 1999 00:00:00 Completed [facility] Hep B, Adol or Pedi Dosage 1999 00:00:00 Completed [facility] Polio (IPV/OPV) 1999 00:00:00 Completed [facility] DTaP, Unspecified Formulation 1999 00:00:00 Completed [facility] IPV 1999 00:00:00 Completed [facility] DTAP 1999 00:00:00 Completed [facility] HIB 4 Dose Schedule 1999 00:00:00 Completed [facility] Hep B, Adol or Pedi Dosage 1999 00:00:00 Completed [facility] Polio (IPV/OPV) 1999 00:00:00 Completed [facility] DTaP, Unspecified Formulation 1999 00:00:00 Completed [facility] IPV 1999 00:00:00 Completed [facility] DTAP 1999 00:00:00 Completed [facility] HIB 4 Dose Schedule 1999 00:00:00 Completed [facility] Hep B, Adol or Pedi Dosage 1999 00:00:00 Completed [facility] Polio (IPV/OPV) 1999 00:00:00 Completed [facility] DTaP, Unspecified Formulation 1999 00:00:00 Completed [facility] IPV 1999 00:00:00 Completed [facility] DTAP 1999 00:00:00 Completed [facility] HIB 4 Dose Schedule 1999 00:00:00 Completed [facility] Hep B, Adol or Pedi Dosage 1999 00:00:00 Completed [facility] Polio (IPV/OPV) 1999 00:00:00 Completed [facility] DTaP, Unspecified Formulation 1999 00:00:00 Completed [facility] IPV 1999 00:00:00 Completed [facility] DTAP 1999 00:00:00 Completed [facility] HIB 4 Dose Schedule 1999 00:00:00 Completed [facility] Hep B, Adol or Pedi Dosage 1999 00:00:00 Completed [facility] Polio (IPV/OPV) 1999 00:00:00 Completed [facility] DTaP, Unspecified Formulation 1999 00:00:00 Completed [facility] IPV 1999 00:00:00 Completed [facility] DTAP 1999 00:00:00 Completed [facility] HIB 4 Dose Schedule 1999 00:00:00 Completed [facility] Hep B, Adol or Pedi Dosage 1999 00:00:00 Completed [facility] Polio (IPV/OPV) 1999 00:00:00 Completed [facility] DTaP, Unspecified Formulation 1999 00:00:00 Completed [facility] IPV 1999 00:00:00 Completed [facility] DTAP 1999 00:00:00 Completed [facility] HIB 4 Dose Schedule 1999 00:00:00 Completed [facility] Hep B, Adol or Pedi Dosage 1999 00:00:00 Completed [facility] Polio (IPV/OPV) 1999 00:00:00 Completed [facility] DTaP, Unspecified Formulation 1999 00:00:00 Completed [facility] IPV 1999 00:00:00 Completed [facility] DTAP 1999 00:00:00 Completed [facility] HIB 4 Dose Schedule 1999 00:00:00 Completed [facility] Hep B, Adol or Pedi Dosage 1999 00:00:00 Completed [facility] Polio (IPV/OPV) 1999 00:00:00 Completed [facility] DTaP, Unspecified Formulation 1999 00:00:00 Completed [facility] IPV 1999 00:00:00 Completed [facility] DTAP 1999 00:00:00 Completed [facility] HIB 4 Dose Schedule 1999 00:00:00 Completed [facility] Hep B, Adol or Pedi Dosage 1999 00:00:00 Completed [facility] Polio (IPV/OPV) 1999 00:00:00 Completed [facility] DTaP, Unspecified Formulation 1999 00:00:00 Completed [facility] IPV 1999 00:00:00 Completed [facility] DTAP 1999 00:00:00 Completed HIB 4 Dose Schedule 1999 00:00:00 Completed Hep B, Adol or Pedi Dosage 1999 00:00:00 Completed Polio (IPV/OPV) 1999 00:00:00 Completed DTaP, Unspecified Formulation 1999 00:00:00 Completed IPV 1999 00:00:00 Completed Hep B, Adol or Pedi Dosage 1999 00:00:00 Completed [facility] Hep B, Adol or Pedi Dosage 1999 00:00:00 Completed [facility] Hep B, Adol or Pedi Dosage 1999 00:00:00 Completed [facility] Hep B, Adol or Pedi Dosage 1999 00:00:00 Completed [facility] Hep B, Adol or Pedi Dosage 1999 00:00:00 Completed [facility] Hep B, Adol or Pedi Dosage 1999 00:00:00 Completed [facility] Hep B, Adol or Pedi Dosage 1999 00:00:00 Completed [facility] Hep B, Adol or Pedi Dosage 1999 00:00:00 Completed [facility] Hep B, Adol or Pedi Dosage 1999 00:00:00 Completed [facility] Hep B, Adol or Pedi Dosage 1999 00:00:00 Completed [facility] Hep B, Adol or Pedi Dosage 1999 00:00:00 Completed [facility] Hep B, Adol or Pedi Dosage 1999 00:00:00 Completed [facility] Hep B, Adol or Pedi Dosage 1999 00:00:00 Completed [facility] Hep B, Adol or Pedi Dosage 1999 00:00:00 Completed [facility] Hep B, Adol or Pedi Dosage 1999 00:00:00 Completed [facility] Hep B, Adol or Pedi Dosage 1999 00:00:00 Completed [facility] Hep B, Adol or Pedi Dosage 1999 00:00:00 Completed [facility] Hep B, Adol or Pedi Dosage 1999 00:00:00 Completed [facility] Hep B, Adol or Pedi Dosage 1999 00:00:00 Completed [facility] Hep B, Adol or Pedi Dosage 1999 00:00:00 Completed [facility] Hep B, Adol or Pedi Dosage 1999 00:00:00 Completed [facility] Hep B, Adol or Pedi Dosage 1999 00:00:00 Completed [facility] Hep B, Adol or Pedi Dosage 1999 00:00:00 Completed [facility] Hep B, Adol or Pedi Dosage 1999 00:00:00 Completed [facility] Hep B, Adol or Pedi Dosage 1999 00:00:00 Completed [facility] Hep B, Adol or Pedi Dosage 1999 00:00:00 Completed [facility] Hep B, Adol or Pedi Dosage 1999 00:00:00 Completed [facility] Hep B, Adol or Pedi Dosage 1999 00:00:00 Completed [facility] Hep B, Adol or Pedi Dosage 1999 00:00:00 Completed [facility] Hep B, Adol or Pedi Dosage 1999 00:00:00 Completed [facility] Hep B, Adol or Pedi Dosage 1999 00:00:00 Completed [facility] Hep B, Adol or Pedi Dosage 1999 00:00:00 Completed DTAP Unknown Completed [facility] HIB 4 Dose Schedule Unknown Completed [facility] HEPATITIS A Unknown Completed [facility] Hep B, Adol or Pedi Dosage Unknown Completed [facility] HPV Unknown Completed [facility] Meningococcal Vaccine Unknown Completed [facility] MMR Unknown Completed [facility] Polio (IPV/OPV) Unknown Completed [facility] TDAP Unknown Completed [facility] Varicella (varivax)(chicken pox) Unknown Completed [facility] Influenza Virus Vaccine Quad .5 mL IM 6+ MO (FLUZONE/FLULAVAL/FL UARIX) Unknown Completed [facility] HPV9 Unknown Completed [facility] DTaP, Unspecified Formulation Unknown Completed [facility] Hepatitis A Adult Unknown [facility] Completed [facility] Meningococcal Polysaccharide (groups A, C, Y and W-135) conjugate vaccine (MCV4P) Unknown Completed [facility] IPV Unknown Completed [facility] DTAP Unknown Completed [facility] HIB 4 Dose Schedule Unknown Completed [facility] HEPATITIS A Unknown Completed [facility] Hep B, Adol or Pedi Dosage Unknown Completed [facility] HPV Unknown Completed [facility] Meningococcal Vaccine Unknown Completed [facility] MMR Unknown Completed [facility] Polio (IPV/OPV) Unknown Completed [facility] TDAP Unknown Completed [facility] Varicella (varivax)(chicken pox) Unknown Completed [facility] Influenza Virus Vaccine Quad .5 mL IM 6+ MO (FLUZONE/FLULAVAL/FL UARIX) Unknown Completed [facility] HPV9 Unknown Completed [facility] DTaP, Unspecified Formulation Unknown Completed [facility] Hepatitis A Adult Unknown [facility] Completed [facility] Meningococcal Polysaccharide (groups A, C, Y and W-135) conjugate vaccine (MCV4P) Unknown Completed [facility] IPV Unknown Completed [facility] Vital Signs Vital Name Observation Time Observation Value Comments S israel Systolic blood pressure 2024-03-11 18:05:00 109 mm[Hg] [facility] Diastolic blood pressure 2024-03-11 18:05:00 63 mm[Hg] [facility] Heart rate 2024-03-11 18:05:00 64 /min [facility] Body temperature 2024-03-11 18:05:00 36.56 Indira [facility] Respiratory rate 2024-03-11 18:05:00 18 /min [facility] Body height 2024-03-11 18:05:[address] [facility] Body weight 2024-03-11 18:05:[address] [facility] BMI 2024-03-11 18:05:00 22.69 kg/m2 [facility] Systolic blood pressure 2023-02-19 14:42:00 119 mm[Hg] [facility] Diastolic blood pressure 2023-02-19 14:42:00 80 mm[Hg] [facility] Heart rate 2023-02-19 14:42:00 71 /min [facility] Body temperature 2023-02-19 14:42:00 36.5 Indira [facility] Respiratory rate 2023-02-19 14:42:00 20 /min [facility] Body height 2023-02-19 14:42:[address] [facility] Body weight 2023-02-19 14:42:[address] [facility] BMI 2023-02-19 14:42:00 24.33 kg/m2 [facility] Systolic blood pressure 2023-02-05 14:39:00 120 mm[Hg] [facility] Diastolic blood pressure 2023-02-05 14:39:00 84 mm[Hg] [facility] Heart rate 2023-02-05 14:39:00 81 /min [facility] Body temperature 2023-02-05 14:39:00 35.56 Indira [facility] Respiratory rate 2023-02-05 14:39:00 18 /min [facility] Body height 2023-02-05 14:39:[address] [facility] Body weight 2023-02-05 14:39:[address] [facility] BMI 2023-02-05 14:39:00 25.15 kg/m2 [facility] Systolic blood pressure 2023-02-01 13:31:00 125 mm[Hg] [facility] Diastolic blood pressure 2023-02-01 13:31:00 81 mm[Hg] [facility] Heart rate 2023-02-01 13:31:00 94 /min [facility] Body temperature 2023-02-01 13:31:00 36.72 Indira [facility] Respiratory rate 2023-02-01 13:31:00 18 /min [facility] Oxygen saturation in Arterial blood by Pulse oximetry 2023-02-01 13:31:00 99 /min [facility] Body height 2023-01-29 13:45:[address] [facility] Body weight 2023-01-29 13:45:[address] [facility] BMI 2023-01-29 13:45:00 26.95 kg/m2 [facility] Heart rate 2023-01-30 02:00:00 80 /min [facility] Oxygen saturation in Arterial blood by Pulse oximetry 2023-01-30 02:00:00 99 /min [facility] Systolic blood pressure 2023-01-30 01:30:00 118 mm[Hg] [facility] Diastolic blood pressure 2023-01-30 01:30:00 69 mm[Hg] [facility] Respiratory rate 2023-01-30 01:00:00 18 /min [facility] Body temperature 2023-01-30 00:00:00 36.78 Indira [facility] Body height 2023-01-29 13:45:00 152.4 cm [facility] Body weight 2023-01-29 13:45:[address] [facility] BMI 2023-01-29 13:45:00 26.95 kg/m2 [facility] Systolic blood pressure 2023-01-27 20:41:00 112 mm[Hg] [facility] Diastolic blood pressure 2023-01-27 20:41:00 75 mm[Hg] [facility] Heart rate 2023-01-27 20:41:00 93 /min [facility] Body temperature 2023-01-27 20:41:00 36.06 Indira [facility] Respiratory rate 2023-01-27 20:41:00 18 /min [facility] Body height 2023-01-27 20:41:00 152.4 cm [facility] 2023-01-27 20:41:00 62.188 kg [facility] BMI 2023-01-27 20:41:00 26.78 kg/m2 [facility] Systolic blood pressure 2023-01-23 16:16:00 120 mm[Hg] [facility] Diastolic blood pressure 2023-01-23 16:16:00 73 mm[Hg] [facility] Heart rate 2023-01-23 16:16:00 82 /min [facility] 2023-01-23 16:16:00 36.11 Indira [facility] Respiratory rate 2023-01-23 16:16:00 18 /min [facility] Body height 2023-01-23 16:16:00 152.4 cm [facility] Body weight 2023-01-23 16:16:00 61.916 kg [facility] BMI 2023-01-23 16:16:00 26.66 kg/m2 [facility] Systolic blood pressure 2023-01-15 21:07:00 112 mm[Hg] [facility] Diastolic blood pressure 2023-01-15 21:07:00 78 mm[Hg] [facility] Heart rate 2023-01-15 21:07:00 77 /min [facility] Body temperature 2023-01-15 21:07:00 35.67 Indira [facility] Respiratory rate 2023-01-15 21:07:00 18 /min [facility] Body height 2023-01-15 21:07:00 152.4 cm [facility] Body weight 2023-01-15 21:07:00 61.326 kg [facility] BMI 2023-01-15 21:07:00 26.40 kg/m2 [facility] Systolic blood pressure 2023-01-08 19:18:00 112 mm[Hg] [place] [facility] Diastolic blood pressure 2023-01-08 19:18:00 75 mm[Hg] [facility] Heart rate 2023-01-08 19:18:00 78 /min [facility] Body temperature 2023-01-08 19:18:00 35.56 Indira [facility] Respiratory rate 2023-01-08 19:18:00 18 /min [facility] Body height 2023-01-08 19:18:00 152.4 cm [facility] Body weight 2023-01-08 19:18:00 61.598 kg [facility] BMI 2023-01-08 19:18:00 26.52 kg/m2 [facility] Systolic blood pressure 2022-12-25 20:31:00 105 mm[Hg] [facility] Diastolic blood pressure 2022-12-25 20:31:00 65 mm[Hg] [facility] Heart rate 2022-12-25 20:31:00 86 /min [facility] Body temperature 2022-12-25 20:31:00 36.67 Indira [facility] Respiratory rate 2022-12-25 20:31:00 18 /min [facility] Body height 2022-12-25 20:31:00 152.4 cm [facility] Body weight 2022-12-25 20:31:00 61.831 kg [facility] BMI 2022-12-25 20:31:00 26.62 kg/m2 [facility] Systolic blood pressure 2022-12-19 01:30:00 114 mm[Hg] [facility] Diastolic blood pressure 2022-12-19 01:30:00 60 mm[Hg] [facility] Heart rate 2022-12-19 01:30:00 105 /min [facility] Oxygen saturation in Arterial blood by Pulse oximetry 2022-12-19 01:30:00 98 /min [facility] Body temperature 2022-12-19 00:00:00 37.17 Indira [facility] Respiratory rate 2022-12-19 00:00:00 16 /min [facility] Body height 2022-12-19 00:00:00 152.4 cm [facility] Body weight 2022-12-19 00:00:[address] [facility] BMI 2022-12-19 00:00:00 25.47 kg/m2 [facility] Systolic blood pressure 2022-12-12 19:08:00 105 mm[Hg] [facility] Diastolic blood pressure 2022-12-12 19:08:00 70 mm[Hg] [facility] Heart rate 2022-12-12 19:08:00 81 /min [facility] Body temperature 2022-12-12 19:08:00 36.33 Indira [facility] Respiratory rate 2022-12-12 19:08:00 18 /min [facility] Body height 2022-12-12 19:08:[address] [facility] Body weight 2022-12-12 19:08:[address] [facility] BMI 2022-12-12 19:08:00 26.07 kg/m2 [facility] Systolic blood pressure 2022-11-27 20:16:00 105 mm[Hg] [facility] Diastolic blood pressure 2022-11-27 20:16:00 62 mm[Hg] [facility] Heart rate 2022-11-27 20:16:00 88 /min [facility] Body temperature 2022-11-27 20:16:00 35.94 Indira [facility] Respiratory rate 2022-11-27 20:16:00 18 /min [facility] Body height 2022-11-27 20:16:00 152.4 cm [facility] Body weight 2022-11-27 20:16:00 60.056 kg [facility] BMI 2022-11-27 20:16:00 25.86 kg/m2 [facility] Systolic blood pressure 2022-11-13 15:31:00 103 mm[Hg] [facility] Diastolic blood pressure 2022-11-13 15:31:00 64 mm[Hg] [facility] Heart rate 2022-11-13 15:31:00 79 /min [facility] Body temperature 2022-11-13 15:31:00 35.83 Indira [facility] Respiratory rate 2022-11-13 15:31:00 18 /min [facility] Body height 2022-11-13 15:31:00 152.4 cm [facility] Body weight 2022-11-13 15:31:00 59.784 kg [facility] BMI 2022-11-13 15:31:00 25.74 kg/m2 [facility] Systolic blood pressure 2022-10-30 15:37:00 103 mm[Hg] [facility] Diastolic blood pressure 2022-10-30 15:37:00 68 mm[Hg] [facility] Heart rate 2022-10-30 15:37:00 78 /min [facility] Body temperature 2022-10-30 15:37:00 35.78 Indira [facility] Respiratory rate 2022-10-30 15:37:00 18 /min [facility] Body height 2022-10-30 15:37:00 152.4 cm [facility] Body weight 2022-10-30 15:37:00 59.104 kg [facility] BMI 2022-10-30 15:37:00 25.45 kg/m2 [facility] Systolic blood pressure 2022-10-01 15:37:00 111 mm[Hg] [facility] Diastolic blood pressure 2022-10-01 15:37:00 72 mm[Hg] [facility] Heart rate 2022-10-01 15:37:00 84 /min [facility] Body temperature 2022-10-01 15:37:00 36.39 Indira [facility] Respiratory rate 2022-10-01 15:37:00 18 /min [facility] Body height 2022-10-01 15:37:00 152.4 cm [facility] Body weight 2022-10-01 15:37:00 59.693 kg [facility] BMI 2022-10-01 15:37:00 25.70 kg/m2 [facility] Systolic blood pressure 2022-09-03 21:09:00 111 mm[Hg] [facility] Diastolic blood pressure 2022-09-03 21:09:00 76 mm[Hg] [facility] Heart rate 2022-09-03 21:09:00 77 /min [facility] Body temperature 2022-09-03 21:09:00 35.83 Indira [facility] Respiratory rate 2022-09-03 21:09:00 18 /min [facility] Body height 2022-09-03 21:09:00 152.4 cm [facility] Body weight 2022-09-03 21:09:00 58.015 kg [facility] BMI 2022-09-03 21:09:00 24.98 kg/m2 [facility] Systolic blood pressure 2022-08-28 22:13:00 113 mm[Hg] [facility] Diastolic blood pressure 2022-08-28 22:13:00 73 mm[Hg] [facility] Heart rate 2022-08-28 22:13:00 85 /min [facility] Body temperature 2022-08-28 22:13:00 36.06 Indira [facility] Respiratory rate 2022-08-28 22:13:00 18 /min [facility] Body height 2022-08-28 22:13:00 152.4 cm [facility] Body weight 2022-08-28 22:13:00 58.605 kg [facility] BMI 2022-08-28 22:13:00 25.23 kg/m2 [facility] Systolic blood pressure 2022-05-26 02:41:00 125 mm[Hg] [facility] Diastolic blood pressure 2022-05-26 02:41:00 83 mm[Hg] [facility] Heart rate 2022-05-26 02:41:00 73 /min [facility] Body temperature 2022-05-26 02:41:00 36.44 Indira [facility] Respiratory rate 2022-05-26 02:41:00 18 /min [facility] Body height 2022-05-26 02:41:[address] [facility] Body weight 2022-05-26 02:41:[address] [facility] BMI 2022-05-26 02:41:00 22.31 kg/m2 [facility] Oxygen saturation in Arterial blood by Pulse oximetry 2022-05-26 02:41:00 99 /min [facility] Systolic blood pressure 2021-09-20 15:09:00 128 mm[Hg] [facility] Diastolic blood pressure 2021-09-20 15:09:00 77 mm[Hg] [facility] Heart rate 2021-09-20 15:09:00 84 /min [facility] Body temperature 2021-09-20 15:09:00 36.06 Indira [facility] Respiratory rate 2021-09-20 15:09:00 16 /min [facility] Body height 2021-09-20 15:09:[address] [facility] Body weight 2021-09-20 15:09:[address] [facility] BMI 2021-09-20 15:09:00 28.47 kg/m2 [facility] Procedures Procedure Date / Time Performed Performing Clinician Source GC & CHLAMYDIA AMPLIFIED ASSAY 2024-03-11 19:57:00 Sharon Devi [facility] CBC WITH DIFF 2023-01-30 10:01:00 Eduarda Steele [facility] CBC WITH DIFF 2023-01-30 10:01:00 Eduarda Steele [facility] VENOUS CORD GAS 2023-01-30 03:06:00 Chavez Adler [facility] VENOUS CORD GAS 2023-01-30 03:06:00 Chavez Adler [facility] SECTION 2023-01-30 01:55:00 Vira Callahan [facility] TUBAL LIGATION 2023-01-30 01:55:00 Vira Callahan [facility] SECTION 2023-01-30 01:55:00 Vira Callahan [facility] TUBAL LIGATION 2023-01-30 01:55:00 Vira Callahan [facility] HEPATITIS B SURFACE ANTIGEN 2023-01-29 14:39:00 Chavez Adler [facility] HB ABO GROUPING 2023-01-29 14:39:00 Chavez Adler [facility] RHO (D) IMMUNE GLOBULIN 2023-01-29 14:39:00 Blanca Steele [facility] SYPHILIS IGG/IGM 2023-01-29 14:39:00 Chavez Adler [facility] HEPATITIS B SURFACE ANTIGEN 2023-01-29 14:39:00 Chavez Adler [facility] HB ABO GROUPING 2023-01-29 14:39:00 Chavez Adler [facility] RHO (D) IMMUNE GLOBULIN 2023-01-29 14:39:00 Blanca Steele [facility] SYPHILIS IGG/IGM 2023-01-29 14:39:00 Chavez Adler [facility] POCT URINALYSIS 2023-01-27 20:43:00 Gabi Palacio [facility] POCT URINALYSIS 2023-01-23 16:17:00 Gabi Palacio [facility] DME/SUPPLY JUSTIFICATION 2023-01-17 05:01:00 Doc tor Unassigned, [facility] POCT URINALYSIS 2023-01-15 21:09:00 Gabi Palacio [facility] DME/SUPPLY JUSTIFICATION 2023 05:01:00 Mervin rey Unassigned, [facility] POCT URINALYSIS 2023-01-08 19:24:00 Gabi Palacio [facility] POCT URINALYSIS 2022-12-25 20:32:00 Gabi Palacio [facility] BASIC METABOLIC PANEL (NA, K, CL, CO2, GLUCOSE, BUN, CREATININE, CA) 2022-12-19 02:22:00 Adum, Marcela Gtz [facility] CBC WITH DIFF 2022-12-19 01:28:00 Marcela Cruz [facility] ASSIGNMENT OF BENEFITS 2022-12-18 23:31:13 Hemalatha r Unassigned, [facility] NOTICE OF PRIVACY PRACTICES 2022-12-18 23:26:10 Doctor Unassigned, [facility] CONSENT/REFUSAL FOR DIAGNOSIS AND TREATMENT 2022-12-18 23:25:48 Doctor Unassigned, [facility] POCT URINALYSIS W/O SPECIFIC GRAVITY 2022-12-12 00:00:00 Nicole Quintanilla [facility] POCT URINALYSIS 2022-11-27 20:18:00 Gabi Palacio [facility] DME/SUPPLY JUSTIFICATION 2022-11-18 05:01:00 Mervin rey Unassigned, [facility] TDAP VACCINE, >11 YRS, IM 2022-11-13 16:09:22 Gabi Palacio [facility] POCT URINALYSIS 2022-11-13 15:32:00 Gabi Palacio [facility] GLUCOSE 1 HOUR POST PRANDIAL 2022-10-30 16:55:00 Gabi Palacio [facility] CBC WITH DIFF 2022-10-30 16:55:00 Gabi Palacio [facility] POCT URINALYSIS 2022-10-30 15:39:00 Gabi Palacio [facility] STERILIZATION CONSENT FORM 2022-10-30 05:01:00 Doctor Unassigned, [facility] DME/SUPPLY JUSTIFICATION 2022-10-18 05:01:00 Doc tor Unassigned, [facility] POCT URINALYSIS 2022-10-01 15:39:00 Gabi Plaacio [facility] PATIENT FINANCIAL POLICY 2022-09-17 18:42:14 Doctor Unassigned, [facility] POCT TEST 2022-09-03 20:57:00 Mark Palacio [facility] POCT URINALYSIS W/O SPECIFIC GRAVITY 2022-09-03 20:57:00 Gabi Palcaio [facility] CONSENT/REFUSAL FOR DIAGNOSIS AND TREATMENT 2022-08-28 21:51:43 Doctor Unassigned, [facility] NOTICE OF PRIVACY PRACTICES 2022-05-26 02:34:04 Doctor Unassigned, [facility] CONSENT/REFUSAL FOR DIAGNOSIS AND TREATMENT 2022-05-26 02:33:01 Doctor Unassigned, [facility] Encounters Start Date/Time End Date/Time Encounter Type Admission Type [facility]ending [facility] Care Department Encounter ID Source 2022-12-19 00:06:29 Outpatient X [facility] [id number] [facility] 2021-05-12 07:01:35 Outpatient [place] [id number] [facility] 2024-04-20 14:30:00 2024-04-20 14:30:00 Outpatient EMMA SALTER SARAH [place] [id number] [facility] 2024-03-08 00:00:00 2024-04-10 18:24:03 Patient Secure Msg Gabi Palacio [facility] KIDS ACTIVITIES COACH [facility] 1.2.840.114 350.1.13.10 4.2.7.2.686 [id number] [facility] 2024-03-15 00:00:00 2024-03-15 08:29:43 Case Management Sharon Devi [facility] KIDS ACTIVITIES COACH [facility] 1.840.114 350.1.13.10 4.2.7.2.686 [id number] [facility] 2024-03-11 13:15:00 2024-03-11 14:25:28 Outpatient R SHARON DEVI [place] [id number] [facility] 2024-03-11 13:15:00 2024-03-11 14:25:28 Office Visit MaritoSharon [facility] KIDS ACTIVITIES COACH [facility] 1.840.114 350.1.13.10 4.2.7.2.686 [id number] [facility] 2024-03-10 09:45:00 2024-03-10 09:45:00 Outpatient R MARITOSHARON [place] [id number] [facility] 2023-02-19 10:00:00 2023-02-19 10:16:55 Outpatient R GABI PALACIO [place] [id number] [facility] 2023-02-19 10:00:00 2023-02-19 10:16:55 Routine Visit Gabi Palacio [facility] 1..840.114 350.1.13.10 4.2.7.2.686 [id number] [facility] 2023-02-05 09:30:00 2023-02-05 10:00:02 Outpatient R GABI PALACIO [place] [id number] [facility] 2023-02-05 09:30:00 2023-02-05 10:00:02 Nurse Visit Visit, Jarvis-Rmchp Nurse Gabi Palacio [facility] KIDS ACTIVITIES COACH [facility] 1..840.114 350.1.13.10 4.2.7.2.686 [id number] [facility] 2023-01-29 08:36:00 2023-02-01 13:02:00 Inpatient P LISA CATES LISA [facility] [id number] [facility] 2023-01-29 08:36:00 2023-02-01 13:02:00 Hospital Encounter Lisa Cates [facility] 1.2840.114 350.1.13.10 4.2.7.2.686 [id number] [facility] 2023-01-29 20:00:00 2023-01-29 22:23:00 Surgery Vira Callahan [facility] 1.284.114 350.1.13.10 4.2.7.2.686 [id number] [facility] 2023-01-27 15:30:00 2023-01-27 15:45:00 Routine Visit Gabi Palacio [facility] KIDS ACTIVITIES COACH [facility] 1..840.114 350.1.13.10 4.2.7.2.686 [id number] [facility] 2023-01-27 15:30:00 2023-01-27 15:30:00 Outpatient R GABI PALACIO [place] [id number] [facility] 2023-01-23 11:00:00 2023-01-23 11:31:45 Outpatient R GABI PALACIO [place] [id number] [facility] 2023-01-23 11:00:00 2023-01-23 11:31:45 Routine Visit Gabi Palacio [facility] KIDS ACTIVITIES COACH [facility] 1.2.840.114 350.1.13.10 4.2.7.2.686 [id number] [facility] 2023-01-17 00:00:00 2023-01-17 00:00:00 Orders Only Doctor Unassigned, [facility] 1.114 350.1.13.10 4.2.7.2.686 [id number] [facility] 2023-01-15 16:00:00 2023-01-15 16:24:45 Outpatient R DEXJUANSLICKGABI [place] [id number] [facility] 2023-01-15 16:00:00 2023-01-15 16:24:45 Routine Visit Gabi Palacio [facility] KIDS ACTIVITIES COACH [facility] 1.0.114 350.1.13.10 4.2.7.2.686 [id number] [facility] 2023 00:00:00 2023 00:00:00 Orders Only Doctor Unassigned, [place] 1..114 350.1.13.10 4.2.7.2.686 [id number] [facility] 2023-01-08 14:15:00 2023-01-08 14:40:51 Outpatient R MARCELASLICKGABI [place] [id number] [facility] 2023-01-08 14:15:00 2023-01-08 14:40:51 Routine Visit Katlin Palacioola Shane [facility] KIDS ACTIVITIES COACH [facility] 1.84.114 350.1.13.10 4.2.7.2.686 [id number] [facility] 2022-12-25 15:30:00 2022-12-25 15:38:04 Outpatient R GABI PALACIO [place] [id number] [facility] 2022-12-25 15:30:00 2022-12-25 15:38:04 Routine Visit Gabi Palacio [facility] KIDS ACTIVITIES COACH [facility] 1..114 350.1.13.10 4.2.7.2.686 [id number] [facility] 2022-12-18 18:35:00 2022-12-18 23:25:00 Outpatient X FREDDY MARCELA [facility] [place] [id number] [facility] 2022-12-18 18:35:00 2022-12-18 23:25:00 Emergency [place], Jamirnicole Marcela Cruz [facility] 1.0.114 350.1.13.10 4.2.7.2.686 [id number] [facility] 2022-12-18 00:00:00 2022-12-18 00:00:00 Telephone Gabi Palacio [facility] KIDS ACTIVITIES COACH [facility] 1.0.114 350.1.13.10 4.2.7.2.686 [id number] [facility] 2022-12-18 00:00:00 2022-12-18 00:00:00 Orders Only Doctor Unassigned, [facility] 1..114 350.1.13.10 4.2.7.2.686 [id number] [facility] 2022-12-17 15:45:00 2022-12-17 15:45:00 Outpatient R GABI PALACIO [place] [id number] [facility] 2022-12-12 14:00:00 2022-12-12 14:18:14 Outpatient R NICOLE QUINTANILLA [place] [id number] [facility] 2022-12-12 14:00:00 2022-12-12 14:18:14 Routine Visit Nicole Quintanilla [facility] KIDS ACTIVITIES COACH [facility] 1..114 350.1.13.10 4.2.7.2.686 [id number] [facility] 2022-12-11 15:30:00 2022-12-11 15:30:00 Outpatient R GABI PALACIO [place] [id number] [facility] 2022-11-27 15:00:00 2022-11-27 15:44:33 Outpatient R GABI PALACIO PETRA [facility] [id number] [facility] 2022-11-27 15:00:00 2022-11-27 15:44:33 Routine Visit Gabi Palacio [facility] KIDS ACTIVITIES COACH [facility] 1.840.114 350.1.13.10 4.2.7.2.686 [id number] [facility] 2022-11-18 00:00:00 2022-11-18 00:00:00 Orders Only Doctor Unassigned, [place] 1..114 350.1.13.10 4.2.7.2.686 [id number] [facility] 2022-11-13 10:30:00 2022-11-13 11:14:12 Outpatient R GABI PALACIO [place] [id number] [facility] 2022-11-13 10:30:00 2022-11-13 11:14:12 Routine Visit Gabi Palacio [facility] KIDS ACTIVITIES COACH [facility] .84.114 350.1.13.10 4.2.7.2.686 [id number] [facility] 2022-10-30 10:30:00 2022-10-30 11:19:15 Outpatient R DEXJUANSLICKGABI [place] [id number] [facility] 2022-10-30 10:30:00 2022-10-30 11:19:15 Routine Visit Gabi Palacio [facility] KIDS ACTIVITIES COACH [facility] 1..114 350.1.13.10 4.2.7.2.686 [id number] [facility] 2022-10-30 00:00:00 2022-10-30 00:00:00 Orders Only Doctor Unassigned, [facility] 1.2.840.114 350.1.13.10 4.2.7.2.686 [id number] [facility] 2022-10-18 00:00:00 2022-10-18 00:00:00 Orders Only Doctor Unassigned, [place] 1.2.840.114 350.1.13.10 4.2.7.2.686 [id number] [facility] 2022-10-01 10:45:00 2022-10-01 11:04:04 Outpatient R GABI PALACIO [place] [id number] [facility] 2022-10-01 10:45:00 2022-10-01 11:04:04 Routine Visit Gabi Palacio [facility] KIDS ACTIVITIES COACH [facility] 1.2840.114 350.1.13.10 4.2.7.2.686 [id number] [facility] 2022-09-24 00:00:00 2022-09-24 00:00:00 Abstract Gabi Palacio [facility] KIDS ACTIVITIES COACH [facility] 1.2.840.114 350.1.13.10 4.2.7.2.686 [id number] [facility] 2022-09-17 13:00:00 2022-09-17 13:50:01 [employer] [facility] Amanda Bales [facility] KIDS ACTIVITIES COACH [facility] 1.2.840.114 350.1.13.10 4.2.7.2.686 [id number] [facility] 2022-09-17 13:45:00 2022-09-17 13:45:00 Outpatient R MAHAMED DO JORDYN [place] [id number] [facility] 2022-09-17 00:00:00 2022-09-17 00:00:00 Orders Only Doctor Unassigned, [facility] 1.840.114 350.1.13.10 4.2.7.2.686 [id number] [facility] 2022-09-03 15:00:00 2022-09-03 16:14:01 Outpatient R GABI PALACIO [place] [id number] [facility] 2022-09-03 15:00:00 2022-09-03 16:14:01 Initial Visit Gabi Palacio [facility] KIDS ACTIVITIES COACH [facility] 1.84.114 350.1.13.10 4.2.7.2.686 [id number] [facility] 2022-08-28 15:45:00 2022-08-28 16:22:32 Outpatient R GABI PALACIO [place] [id number] [facility] 2022-08-28 15:45:00 2022-08-28 16:22:32 Office Visit Gabi Palacio [facility] KIDS ACTIVITIES COACH [facility] 1.84.114 350.1.13.10 4.2.7.2.686 [id number] [facility] 2022-08-28 00:00:00 2022-08-28 00:00:00 Orders Only Doctor Unassigned, [facility] 1..114 350.1.13.10 4.2.7.2.686 [id number] [facility] 2022-07-18 08:15:00 2022-07-18 08:15:00 Outpatient R GABI PALACIO [place] [id number] [facility] 2022-05-25 20:46:00 2022-05-25 21:11:00 Emergency X ALEXSANDRA POLANCO [facility] ERT [id number] [facility] 2022-05-25 20:46:00 2022-05-25 21:11:00 Emergency Alexsandra Polanco S [facility] 1..840.114 350.1.13.10 4.2.7.2.686 [id number] [facility] 2022-05-25 00:00:00 2022-05-25 00:00:00 Orders Only Doctor Unassigned, [place] 1..840.114 350.1.13.10 4.2.7.2.686 [id number] [facility] 2021-12-17 09:15:00 2021-12-17 09:15:00 Outpatient R GABI PALACIO [place] [id number] [facility] 2021-12-13 10:30:00 2021-12-13 10:30:00 Outpatient R [place] [id number] [facility] 2021-12-13 10:30:00 2021-12-13 10:30:00 Outpatient R REMI ROSARIO [place] [id number] [facility] 2021-09-20 09:00:00 2021-09-20 10:04:20 Office Visit Gabi Palacio [facility] KIDS ACTIVITIES COACH [facility] 1..840.114 350.1.13.10 4.2.7.2.686 [id number] [facility] 2021-09-20 09:00:00 2021-09-20 10:04:20 Outpatient GABI VILLAFUERTE [place] [id number] [facility] 2021-09-20 09:00:00 2021-09-20 09:00:00 Outpatient R GABI PALACIO [place] [id number] [facility] 2021-09-20 09:00:00 2021-09-20 09:00:00 Outpatient R GABI PALACIO [place] [id number] [facility] 2021-07-27 00:00:00 2021-07-27 00:00:00 Case Management Akanksha Johnson [facility] 1.114 350.1.13.10 4.2.7.2.686 [id number] [facility] 2021-07-17 10:00:00 2021-07-17 10:23:24 Office Visit Res-Colpo/L fionap, [facility] 1..114 350.1.13.10 4.2.7.2.686 [id number] [facility] 2021-07-17 10:00:00 2021-07-17 10:23:24 [facility] [id number] [facility] 2021-07-17 10:00:00 2021-07-17 10:23:24 Outpatient R WILMER RUI [place] [id number] [facility] 2021-07-17 10:00:00 2021-07-17 10:00:00 Outpatient Maria Luisa GOULD RUI [place] [id number] [facility] 2021-06-28 09:30:00 2021-06-28 10:06:32 Outpatient LUZ MARIA GRACE [place] [id number] [facility] 2021-06-28 09:30:00 2021-06-28 10:06:32 Nurse Visit Visit, [facility] Luz Maria Carrillo [facility] KIDS ACTIVITIES COACH [facility] 1..114 350.1.13.10 4.2.7.2.686 [id number] [facility] 2021-06-28 00:00:00 2021-06-28 00:00:00 Orders Only Doctor Unassigned, [place] [facility] 1.84.114 350.1.13.10 4.2.7.2.686 [id number] [facility] 2021-04-05 10:34:58 2021-04-05 10:46:16 Nurse Visit Visit, [facility] Nurse Luz Maria Angel [facility] KIDS ACTIVITIES COACH [facility] 1.84.114 350.1.13.10 4.2.7.2.686 [id number] [facility] 2021-04-05 10:30:00 2021-04-05 10:30:00 Outpatient R [place] [id number] [facility] 2021-03-28 10:30:00 2021-03-28 10:30:00 Outpatient R [place] [id number] [facility] 2021-02-13 00:00:00 2021-02-13 00:00:00 Case Management Akanksha Johnson [facility] 1..114 350.1.13.10 4.2.7.2.686 [id number] [facility] 2021-02-01 08:20:03 2021-02-01 11:17:36 Office Visit Res-Colpo/L fionap, [facility] Christian Ruiz [facility] 1..114 350.1.13.10 4.2.7.2.686 [id number] [facility] 2021-02-01 08:00:00 2021-02-01 08:00:00 Outpatient R [place] [id number] [facility] 2021-02-01 00:00:00 2021-02-01 00:00:00 Orders Only Doctor Unassigned, [place] [facility] 1..114 350.1.13.10 4.2.7.2.686 [id number] [facility] 2021-01-03 10:30:07 2021-01-03 10:56:34 Nurse Visit Visit, Gabi Peña [facility] KIDS ACTIVITIES COACH [facility] 1.2.840.114 350.1.13.10 4.2.7.2.686 [id number] [facility] 2021-01-03 10:30:00 2021-01-03 10:30:00 Outpatient R [place] [id number] [facility] 2020-11-17 13:45:00 2020-11-17 13:45:00 Outpatient R LUZ MARIA ANGEL [place] [id number] [facility] 2020-10-11 09:43:08 2020-10-11 10:05:54 [facility] KIDS ACTIVITIES COACH [facility] 1..840.114 350.1.13.10 4.2.7.2.686 [id number] [facility] 2020-10-11 09:30:00 2020-10-11 09:30:00 Outpatient R GABI PALACIO [place] [id number] [facility] 2020-10-03 00:00:00 2020-10-03 00:00:00 Patient Outreach Chester Cates [facility] 1.2.840.114 350.1.13.10 4.2.7.2.686 [id number] [facility] 2020-09-19 10:00:00 2020-09-19 10:00:00 Outpatient R [place] [id number] [facility] 2020-09-06 16:04:25 2020-09-06 16:24:25 Laboratory Only Lab, Adc Fam Pob Shira Worthington [facility] [address] ..840.114 350.1.13.10 4.2.7.2.686 [id number] [facility] 2020-09-06 16:00:00 2020-09-06 16:00:00 Outpatient R [place] [id number] [facility] 2020-07-26 00:00:00 2020-07-26 00:00:00 Telephone Gabi Palacio [facility] KIDS ACTIVITIES COACH [facility] 1..840.114 350.1.13.10 4.2.7.2.686 [id number] [facility] 2020-07-19 10:44:08 2020-07-19 11:35:57 Office Visit Gabi Palacio [facility] KIDS ACTIVITIES COACH [facility] 1.840.114 350.1.13.10 4.2.7.2.686 [id number] [facility] 2020-07-19 10:30:00 2020-07-19 10:30:00 Outpatient R GABI PALACIO [place] [id number] [facility] 2020-06-26 10:43:58 2020-06-26 11:13:51 Routine Visit Gabi Palacio [facility] KIDS ACTIVITIES COACH [facility] 1..840.114 350.1.13.10 4.2.7.2.686 [id number] [facility] 2020-06-26 10:30:00 2020-06-26 10:30:00 Outpatient R GABI PALACIO [place] [id number] [facility] 2020-06-07 16:05:04 2020-06-07 16:17:11 Nurse Visit Visit, Ang-Rmchp Nurse Gabi Palacio [facility] KIDS ACTIVITIES COACH [facility] 1.2840.114 350.1.13.10 4.2.7.2.686 [id number] [facility] 2020-06-07 16:00:00 2020-06-07 16:00:00 Outpatient R GABI PALACIO [place] [id number] [facility] 2020-06-05 00:00:00 2020-06-05 00:00:00 Encounter 1.2.840.1 [id number] [id number] 1.2.840.114 350.1.13.10 4.2.7.2.696 [id number] [facility] 2020-05-26 08:45:44 2020-05-26 09:21:50 Routine Visit Gabi Palacio [facility] KIDS ACTIVITIES COACH [facility] 1.840.114 350.1.13.10 4.2.7.2.686 [id number] [facility] 2020-05-26 08:45:00 2020-05-26 08:45:00 Outpatient R GABI PALACIO [place] [id number] [facility] 2020-05-19 10:52:34 2020-05-19 11:19:21 Routine Visit Luz Maria Angel [facility] KIDS ACTIVITIES COACH [facility] 1.840.114 350.1.13.10 4.2.7.2.686 [id number] [facility] 2020-05-19 10:45:00 2020-05-19 10:45:00 Outpatient R LUZ MARIA ANGEL [place] [id number] [facility] 2020-05-12 10:44:57 2020-05-12 11:20:21 Routine Visit Gabi Palacio [facility] KIDS ACTIVITIES COACH [facility] 1.840.114 350.1.13.10 4.2.7.2.686 [id number] [facility] 2020-05-12 11:00:00 2020-05-12 11:00:00 Outpatient R GABI PALACIO [place] [id number] [facility] 2020-05-05 15:27:02 2020-05-05 15:53:00 Routine Visit DexGabi jj Shane [facility] KIDS ACTIVITIES COACH [facility] 1..840.114 350.1.13.10 4.2.7.2.686 [id number] [facility] 2020-05-05 15:30:00 2020-05-05 15:30:00 Outpatient R GABI PALACIO [place] [id number] [facility] 2020-04-26 13:19:54 2020-04-26 14:03:53 Trackmobile Operator Visit Ultrasound, Richard Fall [facility] KIDS ACTIVITIES COACH [facility] 1..840.114 350.1.13.10 4.2.7.2.686 [id number] [facility] 2020-04-26 13:00:00 2020-04-26 13:00:00 Outpatient P [place] [id number] [facility] 2020-04-26 00:00:00 2020-04-26 00:00:00 Abstract Gabi Palacio [facility] KIDS ACTIVITIES COACH [facility] 1..840.114 350.1.13.10 4.2.7.2.686 [id number] [facility] 2020-04-21 12:49:26 2020-04-21 13:44:01 Routine Visit DexGabi jj Shane [facility] KIDS ACTIVITIES COACH [facility] 1..840.114 350.1.13.10 4.2.7.2.686 [id number] [facility] 2020-04-21 12:45:00 2020-04-21 12:45:00 Outpatient R GABI PALACIO [place] [id number] [facility] 2020-04-10 00:00:00 2020-04-10 00:00:00 Telephone Gabi Palacio [facility] KIDS ACTIVITIES COACH [facility] 1.2.840.114 350.1.13.10 4.2.7.2.686 [id number] [facility] 2020-04-07 14:17:56 2020-04-07 15:27:43 Initial Visit Gabi Palacio [facility] KIDS ACTIVITIES COACH [facility] 1.2.840.114 350.1.13.10 4.2.7.2.686 [id number] [facility] 2020-04-07 13:30:00 2020-04-07 13:30:00 Outpatient R GABI PALACIO [place] [id number] [facility] 2020-04-07 13:00:00 2020-04-07 13:00:00 Outpatient R GABI PALACIO [place] [id number] [facility] 2020-04-07 00:00:00 2020-04-07 00:00:00 Orders Only Doctor Unassigned, [place] [facility] 1.2.840.114 350.1.13.10 4.2.7.2.686 [id number] [facility] Results Test Description Test Time Test Comments Results Result Co mments Source [facility] [id number] 16:20:46* Test Item Value Reference Range Interpretation Comme nts Syphilis IgG/IgM (test code = 10035-2) Non-reactive Non-reactive DANIELLE (test code = DANIELLE) Non-reactive - No serologic evidence of T. pallidum infection. Cannot exclude incubating or early syphilis. Submit a second specimen in 2-4 weeks if syphilis is clinically suspected. Equivocal - Further testing to follow. Reactive - Further testing to follow. Lab Interpretation (test code = 31507-3) Normal [facility] (D) IMMUNE [id number] 09:24:15* Test Item Value Reference Range Interpretation Comme nts RHIG CANDIDATE? (test code = 5188) No- see comment Patient is not a candidate for RhIg- Patient is Rh Positive.Performed at [facility] Laboratory Services - [facility] Blood [address] Free: [phone] No. [id number] [facility] (D) IMMUNE [id number] 09:24:15* Test Item Value Reference Range Interpretation Comme nts RHIG CANDIDATE? (test code = 5188) No- see comment Patient is not a candidate for RhIg- Patient is Rh Positive.Performed at [facility] Laboratory Services - [facility] Blood [address] Free: [phone] No. [id number] [facility] Cord [id number] 03:20:51* Test Item Value Reference Range Interpretation Comme nts BASE EXCESS, CORD (test code = 1720278394) -4.3 mEq/L AC PH, CORD (BEAKER) (test code = 3354341092) 7.20 7.18-7.38 PC02, CORD (test code = 1802170187) 66 See_Comment [Automated messa ge] The system which generated this result transmitted reference range: 32 - 66 mmHg. The reference range was not used to interpret this result as normal/abnormal. PO2, CORD (test code = 1913302297) See_Comment L [Automated messa ge] The system which generated this result transmitted reference range: 10 - 30 mmHg. The reference range was not used to interpret this result as normal/abnormal. BICARBONATE, CORD (test code = 6099248185) 25 See_Comment [Automated me ssage] The system which generated this result transmitted reference range: 17 - 27 mEq/L. The reference range was not used to interpret this result as normal/abnormal. Lab Interpretation (test code = 62290-5) Abnormal [facility] Cord [id number] 03:20:51* Test Item Value Reference Range Interpretation Comme nts BASE EXCESS, CORD (test code = 3951549221) -4.3 mEq/L AC PH, CORD (BEAKER) (test code = 4498788831) 7.20 7.18-7.38 PC02, CORD (test code = 5338131507) 66 See_Comment [Automated messa ge] The system which generated this result transmitted reference range: 32 - 66 mmHg. The reference range was not used to interpret this result as normal/abnormal. PO2, CORD (test code = 2590238120) See_Comment L [Automated messa ge] The system which generated this result transmitted reference range: 10 - 30 mmHg. The reference range was not used to interpret this result as normal/abnormal. BICARBONATE, CORD (test code = 7889266051) 25 See_Comment [Automated me ssage] The system which generated this result transmitted reference range: 17 - 27 mEq/L. The reference range was not used to interpret this result as normal/abnormal. Lab Interpretation (test code = 40249-5) Abnormal [facility] Cord [id number] 03:18:05* Test Item Value Reference Range Interpretation Comme nts VENOUS BASE EXCESS, CORD (test code = 9834971803) -3.0 mEq/L VENOUS PH, CORD (test code = 8594511138) 7.27 7.25-7.45 VENOUS PC02, CORD (test code = 6944735216) 55 See_Comment H [Automated me ssage] The system which generated this result transmitted reference range: 27 - 49 mmHg. The reference range was not used to interpret this result as normal/abnormal. VENOUS PO2, CORD (test code = 1596342388) 17 See_Comment [Automated me ssage] The system which generated this result transmitted reference range: 17 - 41 mmHg. The reference range was not used to interpret this result as normal/abnormal. VENOUS BICARBONATE, CORD (test code = 1103866788) 25 See_Comment [Automa pat message] The system which generated this result transmitted reference range: 12 - 29 mEq/L. The reference range was not used to interpret this result as normal/abnormal. Lab Interpretation (test code = 29408-1) Abnormal [facility] Cord [id number] 03:18:05* Test Item Value Reference Range Interpretation Comme nts VENOUS BASE EXCESS, CORD (test code = 4526235387) -3.0 mEq/L VENOUS PH, CORD (test code = 8147773828) 7.27 7.25-7.45 VENOUS PC02, CORD (test code = 9391718287) 55 See_Comment H [Automated me ssage] The system which generated this result transmitted reference range: 27 - 49 mmHg. The reference range was not used to interpret this result as normal/abnormal. VENOUS PO2, CORD (test code = 4404237557) 17 See_Comment [Automated me ssage] The system which generated this result transmitted reference range: 17 - 41 mmHg. The reference range was not used to interpret this result as normal/abnormal. VENOUS BICARBONATE, CORD (test code = 1412309326) 25 See_Comment [Automa pat message] The system which generated this result transmitted reference range: 12 - 29 mEq/L. The reference range was not used to interpret this result as normal/abnormal. Lab Interpretation (test code = 24526-5) Abnormal [facility] B Surface [id number] 16:13:24 * Test Item Value Reference Range Interpretation Comme nts HBsAg Semi-Quantitative (merissa t code = 5195-3) 0.08 Negative [facility] B Surface [id number] 16:13:24 * Test Item Value Reference Range Interpretation Comme nts HBsAg Semi-Quantitative (merissa t code = 5195-3) 0.08 Negative [facility] and Screen - ONCE [id number] 14:46:00 * Test Item Value Reference Range Interpretation Comme nts ABO & RH (test code = 20) O POSITIVE IAT (test code = 1185) Negative [facility] and Screen - ONCE [id number] 14:46:00 * Test Item Value Reference Range Interpretation Comme nts ABO & RH (test code = 20) O POSITIVE IAT (test code = 1185) Negative [facility] URINALYSIS W SPECIFIC [id number] 20:44:00* Test Item Value Reference Range Interpretation [...] U APPEAR (test code = 3267) . [facility] URINALYSIS W SPECIFIC [id number] 16:17:00* Test Item Value Reference Range Interpretation [...] U APPEAR (test code = 3267) . [facility] URINALYSIS W SPECIFIC [id number] 21:10:00* Test Item Value Reference Range Interpretation [...] U APPEAR (test code = 3267) . [facility] URINALYSIS W SPECIFIC [id number] 19:25:00* Test Item Value Reference Range Interpretation [...] U APPEAR (test code = 3267) . [facility] URINALYSIS W SPECIFIC [id number] 20:32:00* Test Item Value Reference Range Interpretation [...] POCT U APPEAR (test code = 3267) [facility] URINALYSIS W SPECIFIC [id number] 20:32:00* Test Item Value Reference Range Interpretation [...] POCT U APPEAR (test code = 3267) [facility] URINALYSIS W SPECIFIC [id number] 20:32:00* Test Item Value Reference Range Interpretation [...] POCT U APPEAR (test code = 3267) [facility] METABOLIC PANEL (NA, K, CL, CO2, GLUCOSE, BUN, CREATININE, CA)2022-12-19 02:57:12* Test Item Value Reference Range Interpretation Comme nts NA (test code = 0223258466) 132 mmol/L 135-145 L K (test code = 6466769894) 3.6 mmol/L 3.5-5.0 CL (test code = 2974817064) 107 mmol/L 98-108 CO2 TOTAL (test code = 7142418701) 16 mmol/L 23-31 L AGAP (test code = 3551140977) 9 2-16 BUN (test code = 3864270137) 7 mg/dL 7-23 GLUCOSE (test code = 9060053323) 67 mg/dL 70-110 L CREATININE (test code = 9100402220) 0.48 mg/dL 0.50-1.04 L CALCIUM (test code = 8912546619) 8.0 mg/dL 8.6-10.6 L eGFR (test code = 1362806213) 160.3 mL/min/1.73m2 DANIELLE (test code = DANIELLE) [...] imaging tests). Lab Interpretation (test code = 28484-1) Abnormal [facility] WITH [id number] 02:30:07* Test Item Value Reference Range Interpretation Comme nts WBC (test code = 6690-2) 6.75 See_Comment [Automated General Specific] The system which generated this result transmitted reference range: 4.30 - 11.10 10*3/?L. The reference range was not used to interpret this result as normal/abnormal. RBC (test code = 789-8) 4.03 See_Comment [Automated General Specific] The system which generated this result transmitted [...] 33.4 g/dL 31.6-35.1 RDW-SD (test code = 96746-9) 43.2 fL 39.0-49.9 RDW-CV (test code = 788-0) 14.0 % 12.0-15.5 PLT (test code = 777-3) 268 See_Comment [Automated General Specific] The system which generated this result transmitted reference range: 166 - 358 10*3/?L. The reference range was not used to interpret this result as normal/abnormal. MPV (test code = 77101-5) 10.6 fL 9.5-12.9 NRBC/100 WBC (test code = 1168456684) 0.0 See_Comment [Automated me ssage] The system which generated this result transmitted reference range: 0.0 - 10.0 /100 WBCs. The reference range was not used to interpret this result as normal/abnormal. NRBC x10^3 (test code = 1822256902) See_Comment [Automated messa ge] The system which generated this result transmitted reference range: 10*3/?L. The reference range was not used to interpret this result as normal/abnormal. GRAN MAT (NEUT) % (test code = 770-8) 85.9 % IMM GRAN % (test code = 7159227178) 0.40 % LYMPH % (test code = 736-9) 7.1 % MONO % (test code = 5905-5) 6.2 % EOS % (test code = 713-8) 0.1 % BASO % (test code = 706-2) 0.3 % GRAN MAT x10^3(ANC) (test code = 9469951180) 5.79 10*3/uL 1.88-7.09 IMM GRAN x10^3 (test code = 6716662694) 0.03 10*3/uL 0.00-0.06 LYMPH x10^3 (test code = 731-0) 0.48 10*3/uL 1.32-3.29 L MONO x10^3 (test code = 742-7) 0.42 10*3/uL 0.33-0.92 EOS x10^3 (test code = 711-2) 0.03-0.39 L BASO x10^3 (test code = 704-7) 0.01-0.07 Lab Interpretation (test code = 43240-4) Abnormal [facility] URINALYSIS W/O SPECIFIC [id number] 19:10:00* Test Item Value Reference Range Interpretation [...] = 3257) trace Negative - Negati ve [facility] URINALYSIS W SPECIFIC [id number] 20:18:00* Test Item Value Reference Range Interpretation [...] U APPEAR (test code = 3267) . [facility] URINALYSIS W SPECIFIC [id number] 15:33:00* Test Item Value Reference Range Interpretation [...] U APPEAR (test code = 3267) . [facility] [id number] 15:33:00* Test Item Value Reference Range Interpretation [...] U APPEAR (test code = 3267) . [facility] 1 Hour Post [id number] 05:29:33* Test Item Value Reference Range Interpretation Comme nts GLUC 1 HR (test code = 8422693102) 98 mg/dL 120-170 L Lab Interpretation (test cod e = 24054-1) Abnormal [facility] with [id number] 05:25:14* Test Item Value Reference Range Interpretation [...] 31.9 g/dL 31.6-35.1 RDW-SD (test code = 29420-4) 43.6 fL 39.0-49.9 RDW-CV (test code = 788-0) 13.6 % 12.0-15.5 PLT (test code = 777-3) 290 See_Comment [Automated messa ge] The system which generated this result transmitted reference range: 166 - 358 10*3/?L. The reference range was not used to interpret this result as normal/abnormal. MPV (test code = 44761-3) 11.1 fL 9.5-12.9 NRBC/100 WBC (test code = 1760177714) 0.0 See_Comment [Automated LetMeGo ssage] The system which generated this result transmitted reference range: 0.0 - 10.0 /100 WBCs. The reference range was not used to interpret this result as normal/abnormal. NRBC x10^3 (test code = 5249291398) See_Comment [Automated [employer] ge] The system which generated this result transmitted reference range: 10*3/?L. The reference range was not used to interpret this result as normal/abnormal. GRAN MAT (NEUT) % (test code = 770-8) 50.3 % IMM GRAN % (test code = 2546064395) 0.20 % LYMPH % (test code = 736-9) 34.6 % MONO % (test code = 5905-5) 9.1 % EOS % (test code = 713-8) 4.7 % BASO % (test code = 706-2) 1.1 % GRAN MAT x10^3(ANC) (test code = 5610290819) 2.70 10*3/uL 1.88-7.09 IMM GRAN x10^3 (test code = 8383742975) 0.00-0.06 LYMPH x10^3 (test code = 731-0) 1.86 10*3/uL 1.32-3.29 MONO x10^3 (test code = 742-7) 0.49 10*3/uL 0.33-0.92 EOS x10^3 (test code = 711-2) 0.25 10*3/uL 0.03-0.39 BASO x10^3 (test code = 704-7) 0.06 10*3/uL 0.01-0.07 Lab Interpretation (test code = 05103-6) Abnormal [facility] URINALYSIS W SPECIFIC [id number] 15:39:00* Test Item Value Reference Range Interpretation [...] U APPEAR (test code = 3267) . [facility] URINALYSIS W SPECIFIC [id number] 15:39:00* Test Item Value Reference Range Interpretation [...] U APPEAR (test code = 3267) .. [facility] URINALYSIS W SPECIFIC [id number] 15:39:00* Test Item Value Reference Range Interpretation [...] U APPEAR (test code = 3267) .. [facility] URINALYSIS W/O SPECIFIC [id number] 20:59:00* Test Item Value Reference Range Interpretation [...] = 3257) neg Negative - Negati ve [facility] URINALYSIS W/O SPECIFIC [id number] 20:59:00* Test Item Value Reference Range Interpretation [...] = 3257) neg Negative - Negati ve [facility] URINALYSIS W/O SPECIFIC [id number] 20:59:00* Test Item Value Reference Range Interpretation [...] = 3257) neg Negative - Negati ve [facility] URINALYSIS W/O SPECIFIC [id number] 20:59:00* Test Item Value Reference Range Interpretation [...] = 3257) neg Negative - Negati ve [facility] [id number] 20:57:00* Test Item Value Reference Range Interpretation Comme nts POCT PREG (test code = 1605) Positive On board controls acceptable with C Line (test code = 3574) Yes POCT PREG LOT # (test code = 3575) POCT PREG TEST DATE ( test code = 3576) [id number] 20:57:[facility]* Test Item Value Reference Range Interpretation Comme nts POCT PREG (test code = 1605) Positive On board controls acceptable with C Line (test code = 3574) Yes POCT PREG LOT # (test code = 3575) POCT PREG TEST DATE ( test code = 3576) [facility] [id number] 20:57:00* Test Item Value Reference Range Interpretation Comme nts POCT PREG (test code = 1605) Positive On board controls acceptable with C Line (test code = 3574) Yes POCT PREG LOT # (test code = 3575) POCT PREG TEST DATE ( test code = 3576) [facility] [id number] 20:57:00* Test Item Value Reference Range Interpretation Comme nts POCT PREG (test code = 1605) Positive On board controls acceptable with C Line (test code = 3574) Yes POCT PREG LOT # (test code = 3575) POCT PREG TEST DATE ( test code = 3576) [facility] History and Physical Notes Date/Time Note Provider Source 2023-01-29 08:55:09 Formatting of this n ote is different from the original. TRIAGE/L&D HISTORY & PHYSICAL IDENTIFYING DATA James Valadez is 23 year old, Black or , 39w0d, female with LENNY 02/05/2023, by Ultrasound. : 2000 Primary Care Physician: Gabi Palacio CHIEF COMPLAINT Induction of Labor for TOLAC HISTORY OF PRESENT ILLNESS James Valadez is a 23 year old at 39w0d who presents for Induction of Labor Patient denies vaginal bleeding, denies leakage of fluid, admits minimal irregular contractions. Patient denies headache, denies nausea/vomiting, denies RUQ pain, denies visual abnormalities. Endorses normal movement. PAST OBSTETRIC HISTORY OB History Para Term AB Living 2 1 1 0 0 1 SAB IAB Ectopic Multiple Live Births 0 0 0 0 1 # Outcome Date GA Lbr Howard/2nd Weight Sex Delivery Anes PTL Lv 2 Current 1 Term 06/03/20 39w1d 2685 g F , L EPI CORY Complications: Non Reassuring Status PAST MEDICAL HISTORY Problem list: Patient Active Problem List Diagnosis Date Noted 39 weeks gestation of 01/29/2023 Tubal ligation status 12/12/2022 Supervision of high-risk 09/03/2022 Multiparity 09/03/2022 History of section 09/03/2022 Desires (vaginal after ) trial 09/03/2022 Over weight 09/20/2021 History of asthma 03/11/2015 Operations: Past Surgical History: Procedure Laterality Date SECTION N/A 06/03/2020 Surgeon: Kaylyn Sotomayor MD; Location: Labor and Delivery - [place] COLPOSCOPY 01/2021 Past Medical History: Diagnosis Date Anemia [address] caba, not on iron supplements Asthma 2008 no episodes since age 8 Pap smear abnormality of cervix CURRENT HEALTH STATUS Medications: Current Facility-Administered Medications Medication Dose Route Frequency [...] and drug reactions: Patient has no known allergies. HOME MEDICATIONS Medications Prior to Admission Medication Sig Dispense Refill Last Dose [id number] acid 29 mg iron- 1 mg per tablet Take 1 tablet by mouth in the morning. 90 tablet 3 Taking SOCIAL HISTORY Tobacco History: Social History Tobacco Use Smoking Status Never Passive exposure: Never Smokeless Tobacco Never Tobacco Comments experimented with smoking at age 14 Drug History: Social History Substance and Sexual Activity Drug Use No Comment: quit marijuana in 2017 Alcohol History: Social History Substance and Sexual Activity Alcohol Use Yes Comment: socially FAMILY HISTORY Family History Problem Relation Age of Onset Cancer [...] NoFHx Osteoporosis NoFHx Psychiatry NoFHx REVIEW OF SYSTEMS General: negative Skin: negative HEENT: negative Neck: negative HEME: negative Resp: negative Cardio: negative GI: negative : negative Endo: negative Neuro: negative Back: negative NOHEMI: negative Psych: negative VITAL SIGNS BP: (114)/(67) Temp: [36.8 ?C (98.2 ?F)] Temp source: Oral (01/29 08) Pulse: [70-85] Resp: [15-16] SpO2: [99 %-100 %] Height: [152.4 cm (5')] Weight: [62.6 kg (138 lb)] BMI (calculated): [26.95] PHYSICAL EXAMINATIONS General: patient alert and in no acute distress HEENT: symmetric, negative for masses Lungs: clear to auscultation bilaterally, unlabored breathing Cardiology: regular rate and rhythm, no murmur and peripheral pulses intact and regular Abdomen: soft, non-tender, non-distended, no liver, spleen or abnormal masses palpated and Gravid Extremities: no clubbing, cyanosis, or edema Neuro: patient moving all extremities, no facial droop : deferred REVIEW OF LABORATORY, PATHOLOGY, AND RADIOLOGY DATA Lab results: Type & Screen Lab Results Component Value Date/Time IABORH O POSITIVE 01/29/2023 09:39 AM IAT Negative 01/29/2023 09:39 AM Serologies Lab Results Component Value Date/Time VZVIGG Positive 09/03/2022 04:10 AM RUBG Positive 09/03/2022 04:10 AM SYPIGG Non-reactive 11/13/2022 11:14 AM SYPIGG Nonreactive 03/09/2015 05:01 PM HBSAG Negative 01/29/2023 09:39 AM HBSAG 0.08 01/29/2023 09:39 AM Chlamydia Lab Results Component Value Date/Time VCAA Negative 01/08/2023 02:25 PM Group B Strep Lab Results Component Value Date/Time CGB Negative 01/08/2023 02:42 PM GTT Lab Results Component Value Date/Time [id number] 98 (L) 10/30/2022 11:55 AM CBC Lab Results Component Value Date/Time HGB 10.5 (L) [...] Tubal ligation status 39 weeks gestation of ASSESSMENT AND PLAN James Valadez is a 23 year old at 39w0d by Ultrasound (19) who presents for IOL for TOLAC. Previous x 1 - PCS for NRHFT in 2019 at [facility], documented LTCS - Patient counseled and desires TOlaC, see separate note - 62.5% chance of success - SVE: / / - Contractions (number / 10 minute): 0 - Plan: Admit for IOL. Plan for FB placement History of asthma - In childhood, not on meds - Denies hospitalizations/intubation s MPDPS -counseled on admission and desires, see separate counseling note -consents signed 10/30/22 -past surgical hx: prev x1 -weight: 138 lbs Antepartum course reviewed - 1 h 98, sero negative, Rimmune, VZVimmune, O positive/IAT negative, GBS negative, Pap NILM 08/2022 - H/H, plt: 10.5 / 33.1, 299 on 01/08/23 - PP control plan: BTL - [facility] Fetus - Presentation on admission: cephalic - anterior placenta - EFW: 2889 g, 12%tile - FHT reactive and reassuring - Normal anatomy scan Placenta Accreta Screening Prior ? : Yes Prior Uterine Surgery?: Yes Placenta low lying/previa in current ? : No Ultrasound suspicion of PASD in current ?: No Screening outcome: A positive screening outcome indicates a history of prior delivery or prior uterine surgery, AND the presence of either a placenta low lying/previa or ultrasound suspicion of PASD in the current . Negative screening. Discussed with MD Leann Fajardo MD Informed consent discussed with the patient, including: condition, [...] any potential problems that might occur during recuperation. Reasonable alternative also discussed with the patient s proposed care, treatment, and services. The discussion encompasses risks, benefits, and side effects related to the alternative and risks related to not receiving the proposed care, treatment, and services. Associated attestation - Lisa Cates MD - 01/31/2023 8:41 AM CDT I was supervising [facility] faculty for the admission of this patient.The admission plan was discussed with me. [facility]G-OBSTETRICS & GYNECOLOGY [facility] Procedure Notes Date/Time Note Provider Source 2023-01-29 11:22:43 Procedure(s): INSERT CERVICAL DILATOR Pre-Procedure Diagnose(s): 39 weeks gestation of Post-Procedure Diagnose(s): 39 weeks gestation of James Valadez is a 23 year old female 39w0d Rice insertion: Insertion date and time: 01/29/2023 at 1045 Rice catheter inserted through cervix in sterile fashion and inflated with 60 cc sterile saline. Rice bulb firmly in place inside internal os. Catheter taped to patient leg under traction. Patient tolerated procedure well. Please use the table below for: SVE 1/0/-3 CERVIX: Consistency : moderately soft; Position: median, Station: -3 Score 0 1 2 3 Dilation (cm) 0 cm 1-2 cm 3-4 cm >5 cm Effacement 0 - 30 % 40 - 50 % 60 - 70 % > 80 % Consistency of the cervix Stiff Moderately soft Very soft Position of the cervix Posterior Median Anterior Station -3 -2 -1 to 0 +1, +2 Lupillo Stone MD Associated attestation - Lisa Cates MD - 01/31/2023 8:40 AM CDT I was [facility] faculty present and available for placement of rice bulb or dilapan for labor induction by the resident. The plan was discussed with me. [facility]G-OBSTETRICS [facility] GYNECOLOGY [facility] Notes Date/Time Note Provider Source 2024-03-09 09:33:41 Patient is scheduled. Paresh Bray [facility] 2023-02-01 12:09:38 Formatting of this n ote is different from the original. This note was copied from a baby's chart. Assessment (most recent) Assessment - 02/01/23 1200 General Information Visit Follow-up Breast Assessment Other Filling Special Delivery Clerk Observation Observed;Mom states latches well with no pain Position right side Football;Infant latched effectively;Audible swallows;Suckled in coordinated bursts Mother demonstrated teach back of Positioning and latching infant at breast Follow up [facility] warmline Recommended Feeding Plan Recommended feeding plan On-demand , 8-12 times in 24 hours not to exceed 6 hours between feeds Called to rm. Baby latching well with audible swallowing. Nikki Massey RN,BSN,IBCLC Pager - [phone] Nikki Massey RN [facility] 2023-02-01 11:27:05 Formatting of this n ote might be different from the original. Problem: Discharge Planning - Goal: Adequate for discharge Outcome: Adequate for discharge Goal: Mood stable Outcome: Adequate for discharge Ortiz Ramos RN [facility] 2023-02-01 07:33:32 Formatting of this n ote might be different from the original. Problem: Discharge Planning - Goal: Adequate for discharge Outcome: Adequate for discharge Goal: Mood stable Outcome: Adequate for discharge Heather Quinn RN [facility] 2023-01-31 19:21:41 Formatting of this n ote might be different from the original. Problem: Discharge Planning - Goal: Adequate for discharge Outcome: Progressing as expected Goal: Mood stable Outcome: Progressing as expected Heather Gilliland RN [facility] 2023-01-30 19:24:04 Formatting of this n ote might be different from the original. Problem: Intrapartum process (including labor pain) Goal: Absence of or reduction of complications of labor Outcome: Resolved Goal: Able to cope with pain Outcome: Resolved Goal: Adequate to move to next level of care Outcome: Resolved Goal: Reduction in pain sensation Outcome: Resolved [facility] 2023-01-30 16:27:48 Formatting of this n ote might be different from the original. Problem: Intrapartum process (including labor pain) Goal: Absence of or reduction of complications of labor Outcome: Progressing as expected Goal: Able to cope with pain Outcome: Progressing as expected Goal: Adequate to move to next level of care Outcome: Progressing as expected Goal: Reduction in pain sensation Outcome: Progressing as expected Problem: Discharge Planning - Goal: Adequate for discharge Outcome: Progressing as expected Goal: Mood stable Outcome: Progressing as expected [facility] 2023-01-30 05:14:26 Formatting of this n ote might be different from the original. Problem: Intrapartum process (including labor pain) Goal: Absence of or reduction of complications of labor Outcome: Progressing as expected Goal: Able to cope with pain Outcome: Progressing as expected Goal: Adequate to move to next level of care Outcome: Progressing as expected Goal: Reduction in pain sensation Outcome: Progressing as expected Problem: Discharge Planning - Goal: Adequate for discharge Outcome: Progressing as expected Goal: Mood stable Outcome: Progressing as expected Rachel Black RN [facility] 2023-01-29 23:31:35 Formatting of this n ote is different from the original. Delivery Date: 01/29/2023 Delivery Time: 10:01 PM DELIVERY BY SECTION Date of Service: : 01/29/2023 at 10:01 PM Admitted for: TOLAC, Repeat Lower uterine transverse section with no extension, BTL, Pfannenstiel, Closed with suture, EBL 600 cc, No complications, Findings: dense adhesions along anterior aspect of uterus, thin filmy adhesions along posterior uterus, omentum adhered in filmy adhesions to anterior uterus, normal appearing bilateral fallopian tubes and ovaries Delivery Summary Sex: male [place] Weight: 3010 g 1 Minute 5 Minute 10 Minute Totals: 2 9 9 Primary Indication: The patient was taken to the operating room for a repeat section due to: unstable lie at 39w0d weeks. Procedures: Repeat Lower uterine transverse section with no extension Modified Maury bilateral tubal ligation Specimens Removed: Placenta Clinical Trials: None Surgeon: Eduarda Steele MD Access Director Surgeon: Cindy Ayala MD OB Faculty: Vira Callahan MD Report: Prophylactic antibiotic, Ancef was given before patient was taken to OR. After arrival to the operating room patient was placed in the supine position with left lateral tilt after administration of spinal anesthesia. Laparotomy A pfannenstiel incision was made through the anterior [...] by lateral traction from the surgeon's and visitor services assistant's hand. Delivery A bladder flap was developed by grasping with Mosotho forcep and enter with Metzenbaun scissor. Then [...] aid of fundal pressure applied by the patient care assistant surgeon . The body was delivered with traction on the head along with fundal pressure. After delivery of body-bulb suction was performed from oropharynx and nostril with removal of clear amniotic fluid. Fetus was delivered in cephalic presentation. With delivery the baby, no extension was noted. Placenta was delivered spontaneously with steady traction on cord and manual separation of placenta from uterine wall. Closure Uterine cavity was cleaned after placental delivery with lap sponge x 2. The hysterotomy was closed in one layer with stitches using 0 chromic with continuous locking stitches. Hemostasis was achieved as needed with electrocautery and figure eight suture ligation. The ovaries/tubes/uterine surface were evaluated. They were found to be normal. PROCEDURE - BILATERAL TUBAL LIGATION The right fallopian tube was grasped at midportion with Dulce forceps and followed out to distal end until the fimbria was visualized. The fallopian tube was ligated and resected with Modified Maury technique - Dulce clamp was placed on fallopian tube and [...] fallopian tube was grasped at midportion with Dulce forceps and followed out to distal end until the fimbria was visualized. The fallopian ligated with 0-plain guts sutures with Modified Maury technique - Dulce clamp was placed on fallopian tube and [...] lumens, the fallopian tube was replaced into abdomen. Bladder flap was reapproximated and closed with continuous [...] procedure considered to be complete at this time. Intraoperative Complications: none EBL: 600 Uterotonics: 30 units pitocin at a rate of 300 cc/hr. Disposition: The patient tolerated the procedure well. She was recovered in Obstetric PACU for close monitoring in stable condition, with a contracted uterus and normal transvaginal bleeding. The was sent to NICU. A segment of the cord was obtained for umbilical cord gases. Cord blood gas was not available at time of operative note entered. Please see Epic for update. The placenta was not sent to pathology. Eduarda Steele MD KIDS ACTIVITIES COACH PGY-2 01/29/23 11:43 PM Associated attestation - Vira Callahan MD - 01/30/2023 7:33 AM CDT Repeat lower segment section, bilateral tubal ligation, and adhesiolysis performed, uncomplicated. I was present in the operating room during the procedure that was performed under my supervision. Please see the Resident's note for additional details. OG-OBSTETRICS & GYNECOLOGY [facility] 2023-01-29 20:35:28 Formatting of this n ote might be different from the original. Problem: Intrapartum process (including labor pain) Goal: Absence of or reduction of complications of labor Outcome: Progressing as expected Goal: Able to cope with pain Outcome: Progressing as expected Goal: Adequate to move to next level of care Outcome: Progressing as expected Goal: Reduction in pain sensation Outcome: Progressing as expected Haley Adam RN [facility]"
[2024-04-21] MEDS ORDERED: predniSONE 20 MG TAB ONE (12:41)
[2024-04-21] MEDS ORDERED: LEVALBUTEROL 1.25 MG/3 ML NEB ONE (12:41)
--- NOTE | 2024-04-21 13:48 | RAD REPORT ---
EXAMINATION: ONE VIEW CHEST XR CLINICAL INDICATION: Female, 24 years old.,COUGH TECHNIQUE: Frontal chest projection is submitted. Examination is limited by patient positioning and t echnique. COMPARISON: 08/16/2023 FINDINGS: The lungs are well inflated and clear. No pneumothorax or sizable effusion. The heart is normal in s ize. IMPRESSION: No acute intrathoracic abnormalities.
--- NOTE | 2024-04-21 14:01 | ER ---
Nurse's Notes [facility] Name: Ev Valadez Age: 24 yrs Sex: Female : 2000 Arrival Date: 04/21/2024 Time: 12:01 Bed 12 Private MD: Diagnosis: Mild intermittent asthma with (acute) exacerbation Presentation: 04/21 12:19 Chief complaint: Patient states: cough, diff breathing, hx of asthma , started a week iw ago , has been using inhaler , not helping. Coronavirus screen: Client presents with at least one sign or symptom that may indicate coronavirus-19. Ebola Screen: No symptoms or risks identified at this time. Initial Sepsis Screen: Does the patient meet any 2 criteria? No. Patient's initial sepsis screen is negative. Does the patient have a suspected source of infection? No. Patient's initial sepsis screen is negative. Risk Assessment: Do you want to hurt yourself or someone else? Patient reports no desire to harm self or others. Onset of symptoms was April 14, 2024. 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 - Infectious Disease History:: Denies. - Social history:: Smoking status: Patient uses street drugs, marijuana. - Family history:: not pertinent. - Hospitalizations: : No recent hospitalization is reported. Screenin:35 [facility] ED Fall Risk Assessment (Adult) History of falling in the last 3 months, iw including since admission No falls in past 3 months (0 pts) Confusion or Disorientation No (0 pts) Intoxicated or Sedated No (0 pts) Impaired Gait No (0 pts) Mobility Assist Device Used No (0 pt) Altered Elimination No (0 pt) Score/Fall Risk Level 0 - 2 = Low Risk Oriented to surroundings, Maintained a safe environment. Abuse screen: Denies threats or abuse. Nutritional screening: No deficits noted. Tuberculosis screening: No symptoms or risk factors identified. Assessment: 13:35 Reassessment: Patient appears in no apparent distress at this time. Patient and/or iw family updated on plan of care and expected duration. Pain level reassessed. Patient is alert, oriented x 3, equal unlabored respirations, skin warm/dry/pink. Patient states feeling better. Vital Signs: 12:19 BP 134 / 95; Pulse 90; Resp 20; Temp 97.1; Pulse Ox 100% on R/A; Weight 54.43 kg; iw Height 5 ft. 0 in. ; Pain 5/10; 12:19 Body Mass Index 23.44 (54.43 kg, 152.4 cm) iw 12:19 Pain Scale: Adult iw ED Course: 12:04 Patient arrived in ED. im 12:08 Chester Little MD is Attending Physician. rn 12:21 Triage completed. iw 12:22 Arm band placed on. iw 12:40 Court Godinez RN is Primary Nurse. iw 13:04 XRAY Chest (1 view) In Process Unspecified. EDMS 13:36 No provider procedures requiring assistance completed. Patient did not have IV access iw during this emergency room visit. Administered Medications: 12:53 Drug: predniSONE PO 60 mg PO once Route: PO; iw 12:53 Drug: Levalbuterol Inhalation 1.25 mg Inhalation once Route: Inhalation; iw Outcome: 14:01 Discharge ordered by . rn 14:13 Patient left the ED. ko1 Signatures: Dispatcher [employer] Court Joya, EDEN HARMON iw Chester Little MD MD rn Oliver, Kathy, RN RN ko1 Chari Macdonald im
--- NOTE | 2024-04-21 14:01 | EDPHYS ---
Physician Documentation [facility] Name: Ev Valadez Age: 24 yrs Sex: Female : 2000 Arrival Date: 04/21/2024 Time: 12:01 Bed 12 Private MD: ED Physician Chester Little HPI: 04/21 12:47 This 24 yrs old Black Female presents to ER via Ambulatory with complaints of Cough. rn 12:47 The patient or guardian reports cough. Onset: The symptoms/episode began/occurred 1 rn week(s) ago. Severity of symptoms: At their worst the symptoms were moderate, in the emergency department the symptoms are unchanged. Modifying factors: The symptoms are alleviated by inhaler, the symptoms are aggravated by nothing. The patient has experienced similar episodes in the past. The patient has not recently seen a physician. Pt reports sob and cough for 1 week. + hx of asthma. + smoker. INhaler helps but doesn't last. Does not feel fever or ill. No chest pain. . 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 - Infectious Disease History:: Denies. - Social history:: Smoking status: Patient uses street drugs, marijuana. - Family history:: not pertinent. - Hospitalizations: : No recent hospitalization is reported. ROS: 12:47 Constitutional: Negative for fever, chills, and weight loss, ENT: Negative for injury, rn pain, and discharge, Neck: Negative for injury, pain, and swelling, Cardiovascular: Negative for chest pain, palpitations, and edema, Respiratory: Positive for cough and shortness of breath Abdomen/GI: Negative for abdominal pain, nausea, vomiting, diarrhea, and constipation, MS/Extremity: Negative for injury and deformity, Neuro: Negative for headache, weakness, numbness, tingling, and seizure, Exam: 12:47 Constitutional: This is a well developed, well nourished patient who is awake, alert, rn and in no acute distress. Cardiovascular: Regular rate and rhythm. No pulse deficits. Respiratory: Mild tachypnea, with wheezing Skin: No cyanosis Neuro: Awake and alert, GCS 15 Vital Signs: 12:19 BP 134 / 95; Pulse 90; Resp 20; Temp 97.1; Pulse Ox 100% on R/A; Weight 54.43 kg; iw Height 5 ft. 0 in. ; Pain 5/10; 12:19 Body Mass Index 23.44 (54.43 kg, 152.4 cm) iw 12:19 Pain Scale: Adult iw MDM: 12:08 Patient medically screened. rn 14:00 Differential Diagnosis: Bronchitis Upper Respiratory Infection Viral Syndrome rn Pneumonia. Data reviewed: vital signs, nurses notes, radiologic studies, plain films, and as a result, I will discharge patient. Care significantly affected by the following chronic conditions: Asthma. Counseling: I had a detailed discussion with the patient and/or guardian regarding the historical points, exam findings, and any diagnostic results supporting the discharge/admit diagnosis, radiology results, the need for outpatient follow up, to return to the emergency department if symptoms worsen or persist or if there are any questions or concerns that arise at home. Response to treatment: the patient's symptoms have markedly improved after treatment, and as a result, I will discharge patient. Special discussion: I discussed with the patient/guardian in detail that at this point there is no indication for admission to the hospital. It is understood, however, that if the symptoms persist or worsen the patient needs to return immediately for re-evaluation. 04/21 12:35 Order name: XRAY Chest (1 view); Complete Time: 13:53 rn Administered Medications: 12:53 Drug: predniSONE PO 60 mg PO once Route: PO; iw 12:53 Drug: Levalbuterol Inhalation 1.25 mg Inhalation once Route: Inhalation; iw Disposition Summary: 04/21/24 14:01 Discharge Ordered Notes: Location: Home rn Problem: an acute exacerbation rn Symptoms: have improved rn Condition: Stable rn Diagnosis - Mild intermittent asthma with (acute) exacerbation rn Followup: rn - With: Private Physician - When: As needed - Reason: Recheck today's complaints, Re-evaluation by your physician Discharge Instructions: - Discharge Summary Sheet rn - Asthma, Adult rn - How to Use a Metered Dose Inhaler rn Forms: - Medication Reconciliation Form rn - Antibiotic aircraft skin burnisher - Prescription Opioid Use rn - Patient Portal Instructions rn - Leadership Thank You Letter rn Prescriptions: - Prednisone 20 mg Oral Tablet - take 3 tablets ORAL route once daily for 5 days; 15 tablet; Refills: 0, Product rn Selection Permitted Signatures: Dispatcher [employer] Joya RN RN Chester Wells MD MD rn
[2024-04-21 15:09] VITALS: BP 134/95; TEMP 97.1; O2SAT 100
== END 2024-04-21 14:13 | disposition home or self-care (01) ==
LOC: ER 12:01
DX: J45.21 Mild intermittent asthma with (acute) exacerbation (principal)
CPT/HCPCS: 71045; J7512; J7614